=== PATIENT | female | born 1930 | race African-American/Black ===

== ENCOUNTER 2017-10-13 01:31 | Inpatient (IN) | payer MEDICARE, MEDICAID ==
[~2017-10-13] VITALS: Ht 170.2 cm; Wt 59.0 kg
[2017-10-13] VITALS (9 sets, daily range): BP systolic 107–202; BP diastolic 41–80
--- NOTE | 2017-10-13 01:51 | Emergency Room Report ---
History of Present Illness General Chief Complaint: Fever Source: Medical Record Present Illness HPI Is an 87-year-old female is a assisted patient. She has a history of dementia and other medical problem. She presents with chief complaint of fever and altered mental status. Decreased alertness. Decreased appetite. Onset for last day or 2. History is from assisted note. Unable to get anything from the patient because of her condition. Allergies: Coded Allergies: No Known Allergies (Unverified , 10/13/17) Patient History Past Medical History: see triage record, old chart reviewed Past Surgical History: other Pertinent Family History: none Social History: Denies: smoking Now: No Immunizations: other Reviewed Nursing Documentation: PMH: Agreed, PSxH: Agreed Nursing Documentation-PMH Past Medical History: No History, Except For Hx Hypertension: Yes Hx COPD: Yes Hx Diabetes: Yes - Type 2 Hx Dialysis: No - CKD- stage 3 Hx Neurological Problems: No - Muscle weakness Hx Cerebrovascular Accident: Yes - TIA, right side Hemiplegia, hemiparesis Review of Systems Constitutional: Reports: fever, weakness Eye: Denies: eye pain, blurred vision ENT: Denies: ear pain, nose congestion, throat swelling Respiratory: Denies: cough, shortness of breath Cardiovascular: Denies: chest pain, palpitations Gastrointestinal: Denies: abdominal pain, diarrhea, nausea, vomiting Musculoskeletal: Denies: back pain, joint pain Skin: Denies: rash Neurological: Denies: headache, numbness Endocrine: Denies: increased thirst, increased urine Hematologic/Lymphatic: Denies: easy bruising All Other Systems: negative except mentioned in HPI Physical Exam Vital Signs Date Time Temp Pulse Resp B/P (MAP) Pulse Ox O2 Delivery O2 Flow Rate FiO2 10/13/17 01:25 98.2 73 16 195/68 82 Room Air vitals with high blood pressure and hypoxia Sp02 EP Interpretation: abnormal General Appearance: mild distress, lethargic, Chronically Ill Head: normocephalic, atraumatic Eyes: bilateral eye PERRL, bilateral eye EOMI ENT: hearing grossly normal, dry mucus membranes Neck: full range of motion, supple, no meningismus Respiratory: chest non-tender, decreased breath sounds Cardiovascular #1: regular rate, rhythm, no murmur Gastrointestinal: normal bowel sounds, non tender, no mass, no organomegaly, no bruit, non-distended Musculoskeletal: back normal, normal range of motion Neurologic: alert, oriented x3, other - right facial droop Psychiatric: mood/affect normal Skin: warm/dry Medical Decision Making Diagnostic Impression: Primary Impression: Fever Qualified Codes: R50.9 - Fever, unspecified Additional Impression: Pneumonia Qualified Codes: J18.9 - Pneumonia, unspecified organism ER Course She present with a fever and a cough. Negative influenza. She may have early pneumonia. She fell better after IV fluid. More alert. Talking. Will admit for IV antibiotics and further workup. Her kidney functions appear to be at baseline. Lab Results Impression labs baseline EKG Diagnostic Results Rate: normal Rhythm: NSR ST Segments: no acute changes Rhythm Strip Diag. Results Rhythm Strip Time: 02:03 EP Interpretation: yes Rate: 69 Rhythm: NSR, no PVC's, no ectopy Chest X-Ray Diagnostic Results Chest X-Ray Diagnostic Results : Chest X-Ray Ordered: Yes # of Views/Limited/Complete: 1 View Indication: Shortness of Breath EP Interpretation: Yes Interpretation: no effusion, no pneumothorax, other - Bilateral interstitial infiltrates Impression: Other - pneumonia Electronically Signed by: Agustin Jackson MD Last Vital Signs Date Time Temp Pulse Resp B/P (MAP) Pulse Ox O2 Delivery O2 Flow Rate FiO2 10/13/17 01:25 98.2 73 16 195/68 82 Room Air Status: improved Disposition: ADMITTED INPATIENT Condition: Serious AGUSTIN JACKSON M.D. Oct 13, 2017 01:51
[2017-10-13 03:18] LABS: APPEARANCE,URINE CLEAR; BASOPHILS % (AUTO) 0.3 % (0.0-2.0); BILIRUBIN, URINE NEGATIVE (NEGATIVE); COLOR,URINE PALE YELLOW; GLUCOSE, URINE (UA) NEGATIVE (NEGATIVE); HEMATOCRIT 36.4 % (37.0-47.0); HEMOGLOBIN 11.9 G/DL (12.0-16.0); KETONES,URINE NEGATIVE (NEGATIVE); LEUKOCYTE ESTERASE ,URINE NEGATIVE (NEGATIVE); LYMPHOCYTES % (AUTO) 13.5 % (20.0-45.0); MEAN CORPUSCULAR VOLUME 79 FL (80-99); MONOCYTES % (AUTO) 12.4 % (1.0-10.0); NEUTROPHILS % (AUTO) 72.9 % (45.0-75.0); NITRITE,URINE NEGATIVE (NEGATIVE); PH,URINE 7 (4.5-8.0); PLATELET COUNT 280 K/UL (150-450); PROTEIN,URINE 4+ (NEGATIVE); RED BLOOD COUNT 4.62 M/UL (4.20-5.40); RED CELL DISTRIBUTION WIDTH 12.7 % (11.6-14.8); UROBILINOGEN,URINE NORMAL MG/DL (0.0-1.0); WHITE BLOOD COUNT 11.1 K/UL (4.8-10.8)
[2017-10-13] MEDS ORDERED: Acetaminophen 500mg (ES) tab ORAL ONE (03:30)
[2017-10-13 03:31] LABS: ANION GAP 7 mmol/L (5-15); BLOOD UREA NITROGEN 32 mg/dL (7-18); CALCIUM 8.9 MG/DL (8.5-10.1); CARBON DIOXIDE 29 MMOL/L (21-32); CHLORIDE 109 MMOL/L (98-107); CREATININE 1.9 MG/DL (0.55-1.30); POTASSIUM 3.3 MMOL/L (3.5-5.1); SODIUM 144 MMOL/L (136-145)
[2017-10-13 03:39] LABS: ALANINE AMINOTRANSFERASE 8 U/L (12-78); ALBUMIN 2.7 G/DL (3.4-5.0); ALBUMIN/GLOBULIN RATIO 0.5 (1.0-2.7); ALKALINE PHOSPHATASE 93 U/L (46-116); ASPARTATE AMINO TRANSFERASE 25 U/L (15-37); BILIRUBIN,TOTAL 0.6 MG/DL (0.2-1.0); CREATINE KINASE 162 U/L (26-308)
--- NOTE | 2017-10-13 10:11 | History & Physical ---
History and Physical History & Physicial Is an 87-year-old female is a assisted patient. She has a history of dementia and other medical problem. She presents with chief complaint of fever and altered mental status. Decreased alertness. Decreased appetite. Onset for last day or 2. History is from assisted note. Unable to get anything from the patient because of her condition. Past Medical History: No History, Except For Hx Hypertension: Yes Hx COPD: Yes Hx Diabetes: Yes - Type 2 Hx Dialysis: No - CKD- stage 3 Hx Neurological Problems: No - Muscle weakness Hx Cerebrovascular Accident: Yes - TIA, right side Hemiplegia, hemiparesis fever pneumonia htn anemia ckd oldcvs right facial weakness hypothyroid anemia high chol cad , s/p cabgs abd surgeries copd # [id number] MOY MARTINEZ Oct 13, 2017 10:11
[2017-10-13] MEDS ORDERED: HydrALAZINE 25mg tab ORAL PRN (10:15)
--- NOTE | 2017-10-13 10:30 | Diagnostic Imaging Report ---
Indication: Shortness of breath Technique: XRAY Chest 1v Comparison: Correlation made to CT angiogram of the chest 02/28/2012 Findings: Heart size within normal limits. Thoracic aorta is calcified and ectatic. There are bilateral interstitial opacities/edema. There are patchy opacities in the right lung. There is biapical pleural scarring. No pneumothorax thorax. Question trace right pleural effusion. Patient is status post median sternotomy. No acute osseous body seen. Impression: Interstitial opacification/edema and patchy right-sided airspace opacities. Although these findings may be related to congestive failure, pneumonia is not entirely excluded. Clinical correlation and follow-up exam recommended. Study was obtained via the emergency room but patient admitted to the hospital at the time of dictation of the final report.
[2017-10-13] MEDS: Docusate 100mg cap ORAL SCH ×2 (13:00→17:56)
--- NOTE | 2017-10-13 13:59 | Infectious Diseases Prog Note ---
Assessment/Plan Problems: (1) HCAP (healthcare-associated pneumonia) Assessment & Plan: will send sputum culture and start vancomycin with cefepime empiric coverage, pending cultures . stop levaquin (2) Sepsis Assessment & Plan: due to the above, will send blood culture and start vancomycin with cefepime empiric coverage (3) Diarrhea Assessment & Plan: rule out C diff , will send screening for C diff toxin , add flagyl empirically (4) Diabetes mellitus Assessment & Plan: recommend tight glycemic control to keep blood glucose between 100-140 (5) CKD (chronic kidney disease) Assessment & Plan: monitor renal function, adjust meds as per cr clearance , nephrology is following Subjective Allergies: Coded Allergies: No Known Allergies (Unverified , 10/13/17) Objective Vital Signs Last 24 Hour Vital Signs Date Time Temp Pulse Resp B/P (MAP) Pulse Ox O2 Delivery O2 Flow Rate FiO2 10/13/17 11:49 98.2 58 18 137/61 98 10/13/17 08:47 97.9 58 18 158/60 92 10/13/17 07:30 99.2 62 20 107/41 98 Simple Mask 4.0 10/13/17 05:48 99.2 62 20 107/41 98 Simple Mask 4.0 10/13/17 04:55 99.6 71 22 146/58 99 Simple Mask 4.0 10/13/17 04:37 99.8 10/13/17 04:02 203/98 10/13/17 03:55 99.8 80 16 182/80 95 Nasal Cannula 4.0 10/13/17 02:55 101.0 88 16 196/70 95 Nasal Cannula 4.0 10/13/17 01:45 98.8 78 16 202/68 96 Nasal Cannula 4.0 10/13/17 01:25 98.2 73 16 195/68 82 Room Air Height (Feet): 5 Height (Inches): 4.00 Weight (Pounds): 130 Microbiology Date/Time Source Procedure Growth Status 10/13/17 02:45 Nasal Nares Influenza Types A,B Antigen (HEATHER) - Final Complete Laboratory Tests Test 10/13/17 03:05 White Blood Count 11.1 K/UL (4.8-10.8) H Red Blood Count 4.62 M/UL (4.20-5.40) Hemoglobin 11.9 G/DL (12.0-16.0) L Hematocrit 36.4 % (37.0-47.0) L Mean Corpuscular Volume 79 FL (80-99) L Mean Corpuscular Hemoglobin 25.7 PG (27.0-31.0) L Mean Corpuscular Hemoglobin Concent 32.7 G/DL (32.0-36.0) Red Cell Distribution Width 12.7 % (11.6-14.8) Platelet Count 280 K/UL (150-450) Mean Platelet Volume 7.6 FL (6.5-10.1) Neutrophils (%) (Auto) 72.9 % (45.0-75.0) Lymphocytes (%) (Auto) 13.5 % (20.0-45.0) L Monocytes (%) (Auto) 12.4 % (1.0-10.0) H Eosinophils (%) (Auto) 1.0 % (0.0-3.0) Basophils (%) (Auto) 0.3 % (0.0-2.0) Prothrombin Time 10.4 SEC (9.30-11.50) Prothromb Time International Ratio 1.0 (0.9-1.1) Activated Partial Thromboplast Time 35 SEC (23-33) H Urine Color Pale yellow Urine Appearance Clear Urine pH 7 (4.5-8.0) Urine Specific [place] 1.010 (1.005-1.035) Urine Protein 4+ (NEGATIVE) H Urine Glucose (UA) Negative (NEGATIVE) Urine Ketones Negative (NEGATIVE) Urine Occult Blood 3+ (NEGATIVE) H Urine Nitrite Negative (NEGATIVE) Urine Bilirubin Negative (NEGATIVE) Urine Urobilinogen Normal MG/DL (0.0-1.0) Urine Leukocyte Esterase Negative (NEGATIVE) Urine RBC 5-10 /HPF (0 - 2) H Urine WBC 0 /HPF (0 - 2) Urine Squamous Epithelial Cells Occasional /LPF Urine Bacteria Occasional /HPF (NONE) Sodium Level 144 MMOL/L (136-145) Potassium Level 3.3 MMOL/L (3.5-5.1) L Chloride Level 109 MMOL/L (98-107) H Carbon Dioxide Level 29 MMOL/L (21-32) Anion Gap 7 mmol/L (5-15) Blood Urea Nitrogen 32 mg/dL (7-18) H Creatinine 1.9 MG/DL (0.55-1.30) H Estimat Glomerular Filtration Rate mL/min (>60) Glucose Level 126 MG/DL (74-106) H Lactic Acid Level 0.80 mmol/L (0.66-2.22) Calcium Level 8.9 MG/DL (8.5-10.1) Total Bilirubin 0.6 MG/DL (0.2-1.0) Aspartate Amino Transf (AST/SGOT) 25 U/L (15-37) Alanine Aminotransferase (ALT/SGPT) 8 U/L (12-78) L Alkaline Phosphatase 93 U/L (46-116) Total Creatine Kinase 162 U/L (26-308) Creatine Kinase MB 1.0 NG/ML (0.0-3.6) Creatine Kinase MB Relative Index 0.6 Troponin I 0.021 ng/mL (0.000-0.056) C-Reactive Protein, Quantitative 11.8 mg/dL (0.00-0.90) H Total Protein 8.0 G/DL (6.4-8.2) Albumin 2.7 G/DL (3.4-5.0) L Globulin 5.3 g/dL Albumin/Globulin Ratio 0.5 (1.0-2.7) L Current Medications Medications (Trade) Dose Ordered Sig/Jennie Route PRN Reason Start Time Stop Time Status Last Admin Dose Admin Amlodipine Besylate (Norvasc) 5 mg DAILY ORAL 10/14/17 09:00 11/13/17 08:59 Aspirin (ASA) 81 mg DAILY ORAL 10/14/17 09:00 11/13/17 08:59 Docusate Sodium (Colace) 100 mg THREE TIMES A DAY ORAL 10/13/17 13:00 11/12/17 12:59 Heparin Sodium (Porcine) (Heparin 5000 units/ml) 5,000 units EVERY 12 HOURS SUBQ 10/13/17 21:00 11/12/17 20:59 Hydralazine HCl (Apresoline) 25 mg Q6H PRN ORAL bp over 160 syst 10/13/17 10:15 11/12/17 10:14 Lansoprazole (Prevacid) 30 mg DAILY ORAL 10/14/17 09:00 11/13/17 08:59 Levofloxacin 50 ml @ 50 mls/hr Q24H IVPB 10/14/17 09:00 10/21/17 08:59 Levothyroxine Sodium (Synthroid) 75 mcg DAILY@0630 ORAL 10/14/17 06:30 11/13/17 06:29 Metoprolol Tartrate (Lopressor) 12.5 mg Q12HR ORAL 10/13/17 21:00 11/12/17 20:59 Potassium Chloride (K-Dur) 20 meq TWICE A DAY ORAL 10/13/17 10:15 10/14/17 10:14 Patric Wellington M.D. Oct 13, 2017 13:59
[2017-10-13] MEDS: Cefepime HCl 2 GM in D5W 55 ML IVPB SCH (15:53)
[2017-10-13] MEDS ORDERED: Vancomycin 1gm in D5W 275ml IVPB ONE (16:00)
--- NOTE | 2017-10-13 16:22 | Consultation ---
History of Present Illness General Date patient seen: Oct 13, 2017 Chief Complaint: Fever Referring physician: Dr. Moreau Reason for Consultation: Pneuomnia Present Illness HPI Patient is a 87 yo fem with pmhx heart disease, DM II, anemia, dementia and chronic obstructive pulmonary disease presents to [facility] with complaints of cough and fever. Initial chest radiograph reveals patchy infiltrates and a right small plueral effusion. The patinet is being admitted to the hospital for treatment, I was asked to manage and treat her respiratory ailments. Allergies: Coded Allergies: No Known Allergies (Unverified , 10/13/17) Medication History Scheduled Amlodipine Besylate (Norvasc), 5 MG ORAL BID Amoxicillin/Potassium Clav 875-125 Mg Tab* (Amox Tr-K Clv 875-125 Mg Tab*), 875 MG ORAL EVERY 12 HOURS Aspirin* (Aspirin*), 81 MG ORAL DAILY Docusate Sodium* (Colace*), 100 MG ORAL THREE TIMES A DAY Hydralazine Hcl* (Hydralazine Hcl*), 50 MG ORAL Q8HR Lansoprazole* (Lansoprazole*), 30 MG ORAL DAILY Levothyroxine Sodium* (Levothyroxine Sodium*), 100 MCG ORAL DAILY@0630 Metoprolol Tartrate (Metoprolol Tartrate), 25 MG ORAL Q12HR Patient History Healthcare decision maker Resuscitation status Full Code Advanced Directive on File Past Medical/Surgical History Past Medical/Surgical History: (1) Diarrhea (2) Sepsis (3) HCAP (healthcare-associated pneumonia) (4) Diabetes mellitus (5) CKD (chronic kidney disease) Review of Systems Constitutional: Reports: fever Respiratory: Reports: cough, shortness of breath Physical Exam General Appearance: no apparent distress, lethargic Lines, tubes and drains: peripheral HEENT: normocephalic, atraumatic, anicteric, PERRL Neck: non-tender, normal alignment, supple, normal inspection Respiratory/Chest: chest wall non-tender, decreased breath sounds, rhonchi - bilaterally Breasts: no masses Cardiovascular/Chest: normal peripheral pulses, normal rate, regular rhythm, no JVD Abdomen: normal bowel sounds, non tender, soft, no organomegaly, no mass Genitourinary/Rectal: normal genital exam, normal rectal exam Extremities: normal range of motion, non-tender, normal inspection, no calf tenderness Skin Exam: normal pigmentation, warm/dry 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, no motor/sensory deficits Last 24 Hour Vital Signs Date Time Temp Pulse Resp B/P (MAP) Pulse Ox O2 Delivery O2 Flow Rate FiO2 10/13/17 16:18 98.0 60 18 138/65 98 10/13/17 11:49 98.2 58 18 137/61 98 10/13/17 08:47 97.9 58 18 158/60 92 10/13/17 07:30 99.2 62 20 107/41 98 Simple Mask 4.0 10/13/17 05:48 99.2 62 20 107/41 98 Simple Mask 4.0 10/13/17 04:55 99.6 71 22 146/58 99 Simple Mask 4.0 10/13/17 04:37 99.8 10/13/17 04:02 203/98 10/13/17 03:55 99.8 80 16 182/80 95 Nasal Cannula 4.0 10/13/17 02:55 101.0 88 16 196/70 95 Nasal Cannula 4.0 10/13/17 01:45 98.8 78 16 202/68 96 Nasal Cannula 4.0 10/13/17 01:25 98.2 73 16 195/68 82 Room Air Intake and Output 10/12/17 10/13/17 19:00 07:00 Intake Total 1900 ml Output Total 200 ml Balance 1700 ml IV Total 1900 ml Output Urine Total 200 ml Laboratory Tests Test 10/13/17 03:05 White Blood Count 11.1 K/UL (4.8-10.8) H Red Blood Count 4.62 M/UL (4.20-5.40) Hemoglobin 11.9 G/DL (12.0-16.0) L Hematocrit 36.4 % (37.0-47.0) L Mean Corpuscular Volume 79 FL (80-99) L Mean Corpuscular Hemoglobin 25.7 PG (27.0-31.0) L Mean Corpuscular Hemoglobin Concent 32.7 G/DL (32.0-36.0) Red Cell Distribution Width 12.7 % (11.6-14.8) Platelet Count 280 K/UL (150-450) Mean Platelet Volume 7.6 FL (6.5-10.1) Neutrophils (%) (Auto) 72.9 % (45.0-75.0) Lymphocytes (%) (Auto) 13.5 % (20.0-45.0) L Monocytes (%) (Auto) 12.4 % (1.0-10.0) H Eosinophils (%) (Auto) 1.0 % (0.0-3.0) Basophils (%) (Auto) 0.3 % (0.0-2.0) Prothrombin Time 10.4 SEC (9.30-11.50) Prothromb Time International Ratio 1.0 (0.9-1.1) Activated Partial Thromboplast Time 35 SEC (23-33) H Urine Color Pale yellow Urine Appearance Clear Urine pH 7 (4.5-8.0) Urine Specific [place] 1.010 (1.005-1.035) Urine Protein 4+ (NEGATIVE) H Urine Glucose (UA) Negative (NEGATIVE) Urine Ketones Negative (NEGATIVE) Urine Occult Blood 3+ (NEGATIVE) H Urine Nitrite Negative (NEGATIVE) Urine Bilirubin Negative (NEGATIVE) Urine Urobilinogen Normal MG/DL (0.0-1.0) Urine Leukocyte Esterase Negative (NEGATIVE) Urine RBC 5-10 /HPF (0 - 2) H Urine WBC 0 /HPF (0 - 2) Urine Squamous Epithelial Cells Occasional /LPF Urine Bacteria Occasional /HPF (NONE) Sodium Level 144 MMOL/L (136-145) Potassium Level 3.3 MMOL/L (3.5-5.1) L Chloride Level 109 MMOL/L (98-107) H Carbon Dioxide Level 29 MMOL/L (21-32) Anion Gap 7 mmol/L (5-15) Blood Urea Nitrogen 32 mg/dL (7-18) H Creatinine 1.9 MG/DL (0.55-1.30) H Estimat Glomerular Filtration Rate mL/min (>60) Glucose Level 126 MG/DL (74-106) H Lactic Acid Level 0.80 mmol/L (0.66-2.22) Calcium Level 8.9 MG/DL (8.5-10.1) Total Bilirubin 0.6 MG/DL (0.2-1.0) Aspartate Amino Transf (AST/SGOT) 25 U/L (15-37) Alanine Aminotransferase (ALT/SGPT) 8 U/L (12-78) L Alkaline Phosphatase 93 U/L (46-116) Total Creatine Kinase 162 U/L (26-308) Creatine Kinase MB 1.0 NG/ML (0.0-3.6) Creatine Kinase MB Relative Index 0.6 Troponin I 0.021 ng/mL (0.000-0.056) C-Reactive Protein, Quantitative 11.8 mg/dL (0.00-0.90) H Total Protein 8.0 G/DL (6.4-8.2) Albumin 2.7 G/DL (3.4-5.0) L Globulin 5.3 g/dL Albumin/Globulin Ratio 0.5 (1.0-2.7) L Microbiology Date/Time Source Procedure Growth Status 10/13/17 02:45 Nasal Nares Influenza Types A,B Antigen (HEATHER) - Final Complete Height (Feet): 5 Height (Inches): 7.00 Weight (Pounds): 130 Medications Current Medications Medications (Trade) Dose Ordered Sig/Jennie Route PRN Reason Start Time Stop Time Status Last Admin Dose Admin Amlodipine Besylate (Norvasc) 5 mg DAILY ORAL 10/14/17 09:00 11/13/17 08:59 Aspirin (ASA) 81 mg DAILY ORAL 10/14/17 09:00 11/13/17 08:59 Cefepime HCl 2 gm/ Dextrose 55 ml @ 110 mls/hr Q24H IVPB 10/13/17 15:00 10/20/17 14:59 10/13/17 15:53 Docusate Sodium (Colace) 100 mg THREE TIMES A DAY ORAL 10/13/17 13:00 11/12/17 12:59 Heparin Sodium (Porcine) (Heparin 5000 units/ml) 5,000 units EVERY 12 HOURS SUBQ 10/13/17 21:00 11/12/17 20:59 Hydralazine HCl (Apresoline) 25 mg Q6H PRN ORAL bp over 160 syst 10/13/17 10:15 11/12/17 10:14 Lansoprazole (Prevacid) 30 mg DAILY ORAL 10/14/17 09:00 11/13/17 08:59 Levothyroxine Sodium (Synthroid) 75 mcg DAILY@0630 ORAL 10/14/17 06:30 11/13/17 06:29 Metoprolol Tartrate (Lopressor) 12.5 mg Q12HR ORAL 10/13/17 21:00 11/12/17 20:59 Potassium Chloride (K-Dur) 20 meq TWICE A DAY ORAL 10/13/17 10:15 10/14/17 10:14 10/13/17 10:15 Vancomycin HCl (Vanco rx to dose) 1 ea DAILY PRN MISC Per rx protocol 10/13/17 14:00 11/12/17 13:59 Vancomycin HCl 1 gm/Dextrose 275 ml @ 183.708 mls/hr ONCE ONCE IVPB 10/13/17 16:00 10/13/17 17:29 Assessment/Plan Problem List: (1) HCAP (healthcare-associated pneumonia) ICD Codes: J18.9 - Pneumonia, unspecified organism SNOMED: 540327289 (2) Fever ICD Codes: R50.9 - Fever, unspecified SNOMED: 993155228 Qualifiers: Qualified Codes: R50.9 - Fever, unspecified (3) Sepsis ICD Codes: A41.9 - Sepsis, unspecified organism SNOMED: 89150488 Qualifiers: Qualified Codes: A41.9 - Sepsis, unspecified organism (4) Diabetes mellitus ICD Codes: E11.9 - Type 2 diabetes mellitus without complications SNOMED: 62665206 Qualifiers: (5) CKD (chronic kidney disease) ICD Codes: N18.9 - Chronic kidney disease, unspecified SNOMED: 946626747 Qualifiers: Qualified Codes: N18.9 - Chronic kidney disease, unspecified Status: stable, progressing Assessment/Plan Respiratory treatment Check sputum IV abx Check cultures DVT prophylaxis ROBBY COLE Oct 13, 2017 16:22
--- NOTE | 2017-10-13 19:00 | History and Physical Report ---
DATE OF ADMISSION: 10/13/2017 HISTORY OF PRESENT ILLNESS: The patient is an 87-year-old female, who is a longterm resident with history of multiple medical problems and dementia. The patient had some change in mental status and also became somewhat tachypneic with fever, was transferred to emergency room, and subsequently is being admitted with [id number] pneumonia. PAST MEDICAL HISTORY: Significant for previous CVA, hypothyroidism, hyperlipemia, CKD, coronary artery disease, previous coronary bypass graft surgery, dementia, hypertension, diabetes mellitus, and COPD. ALLERGIES: The patient does not have any allergies. REVIEW OF SYSTEMS: When seen, the patient had not been complaining of any pain. PHYSICAL EXAMINATION: GENERAL: Not in any distress. VITAL SIGNS: She was febrile with temperature of 101, respiratory rate of 22, and pulse rate of 73. HEENT: Face is pale. CHEST: Scar on the chest. LUNGS: Decreased breath sound over the bases. Occasional rales. HEART: Slightly tachycardic. ABDOMEN: Multiple scars of previous surgery, however, soft. EXTREMITIES: Lower extremities, no edema. NEUROLOGIC: Right face paralysis. LABORATORY DATA: Potassium 3.3, glucose 126, albumin 2.7. C-reactive protein 11.8. White blood cells 11.9, hemoglobin 11.9. Urine 10 RBCs, zero white blood cells, 3+ blood, 4+ protein. Chest x-ray, possible pneumonia, the interstitial edema, patchy right-side airspace opacity. IMPRESSION: This 87-year-old female is admitted with fever and pneumonia. Other conditions are hypertension, anemia, chronic kidney disease with creatinine of 1.9, old cerebrovascular accident, hypothyroid, anemia, high cholesterol, coronary artery disease, abdominal surgeries, and chronic obstructive pulmonary disease. PLAN: Antibiotic, keep the blood pressure in check, monitor laboratories, and pulmonary toilet and according to how the patient's condition evolves, we will make proper changes in our future management. Suresh Coronado M.D. DR: Aiden JOB#: [id number] CC:
[2017-10-13] MEDS: Metoprolol Tartrate 12.5mg TAB ORAL SCH (21:35)
[2017-10-13] MEDS: Heparin 5000 units/ml inj SUBQ SCH (21:37)
[2017-10-14] VITALS (9 sets, daily range): BP systolic 155–199; BP diastolic 72–107
[2017-10-14 07:40] LABS: BASOPHILS % (AUTO) 0.9 % (0.0-2.0); EOSINOPHILS % (AUTO) 3.5 % (0.0-3.0); HEMATOCRIT 32.4 % (37.0-47.0); HEMOGLOBIN 10.6 G/DL (12.0-16.0); LYMPHOCYTES % (AUTO) 17.6 % (20.0-45.0); MEAN CORPUSCULAR VOLUME 79 FL (80-99); MONOCYTES % (AUTO) 10.7 % (1.0-10.0); NEUTROPHILS % (AUTO) 67.3 % (45.0-75.0); PLATELET COUNT 222 K/UL (150-450); RED BLOOD COUNT 4.09 M/UL (4.20-5.40); RED CELL DISTRIBUTION WIDTH 12.8 % (11.6-14.8); WHITE BLOOD COUNT 9.1 K/UL (4.8-10.8)
[2017-10-14 08:04] LABS: ALANINE AMINOTRANSFERASE 16 U/L (12-78); ALBUMIN 2.2 G/DL (3.4-5.0); ALBUMIN/GLOBULIN RATIO 0.4 (1.0-2.7); ALKALINE PHOSPHATASE 77 U/L (46-116); ANION GAP 8 mmol/L (5-15); ASPARTATE AMINO TRANSFERASE 23 U/L (15-37); BILIRUBIN,TOTAL 0.2 MG/DL (0.2-1.0); BLOOD UREA NITROGEN 29 mg/dL (7-18); CALCIUM 8.7 MG/DL (8.5-10.1); CARBON DIOXIDE 26 MMOL/L (21-32); CHLORIDE 114 MMOL/L (98-107); CHOLESTEROL 142 MG/DL (< 200); CREATININE 1.6 MG/DL (0.55-1.30); FERRITIN 243 NG/ML (8-388); GAMMA GLUTAMYL TRANSPEPTIDASE 17 U/L (5-85); HDL CHOLESTEROL 45 MG/DL (40-60); PHOSPHORUS 2.8 MG/DL (2.5-4.9); POTASSIUM 3.8 MMOL/L (3.5-5.1); SODIUM 148 MMOL/L (136-145); TRIGLYCERIDES 128 MG/DL (30-150)
[2017-10-14 08:23] LABS: % IRON SATURATION 10 % (15-50); IRON 19 ug/dL (50-175); TOTAL IRON BINDING CAPACITY 190 ug/dL (250-450)
[2017-10-14] MEDS: Aspirin Baby 81mg ORAL SCH (08:23)
[2017-10-14] MEDS: Metoprolol Tartrate 12.5mg TAB ORAL SCH ×2 (08:23→20:37)
[2017-10-14] MEDS: Docusate 100mg cap ORAL SCH ×3 (08:24→17:21)
[2017-10-14] MEDS: Heparin 5000 units/ml inj SUBQ SCH ×2 (08:29→20:38)
--- NOTE | 2017-10-14 12:00 | Consultation ---
DATE OF CONSULTATION: 10/13/2017 INFECTIOUS DISEASE CONSULTATION REQUESTING PHYSICIAN: Suresh Coronado M.D. REASON FOR CONSULTATION: Healthcare-acquired pneumonia and sepsis, recommendation for antibiotics treatment. HISTORY OF PRESENT ILLNESS: The patient is an 87-year-old female, who is a half-way resident with past medical history of dementia, hypertension, COPD, diabetes, chronic kidney disease and transient ischemic attack with hemiparesis, was sent to [facility] emergency room for fever and cough. The patient was feeling dizzy and sick. She was coughing yellowish phlegm. She had nausea and vomited x1 in the half-way. So she was sent to the hospital for evaluation. The patient had low appetite and became dehydrated. In the emergency room, chest x-ray showed evidence of significant interstitial infiltration. She was hypoxemic, saturating 82% on room air and she was also running fever. So, she was started on levofloxacin empiric coverage by the admitting physician and I was consulted for antibiotic treatment and further management. As of note, the patient is poor historian, could not provide good history. History was mainly obtained from the medical record and nursing staff. PAST MEDICAL HISTORY: Significant for hypertension, COPD, diabetes, chronic kidney disease, stage III, muscle weakness, transient ischemic attack with right-sided hemiplegia and hemiparesis. PAST SURGICAL HISTORY: Not on record. MEDICATIONS: The patient was started on levofloxacin. For the rest of her medications, please refer to MAR. ALLERGIES: No known drug allergy. SOCIAL HISTORY: The patient is a resident of half-way. No recent drugs, tobacco, or alcohol. FAMILY HISTORY: Negative and noncontributory. REVIEW OF SYSTEMS: Unable to obtain. The patient is a poor historian. PHYSICAL EXAMINATION: GENERAL: An elderly female, lying in bed, awake, alert, pleasant with facial droop, up in bed, not in distress, coughing. VITAL SIGNS: Temperature 99.6 degrees, pulse 71, respirations 22, blood pressure 146/58 and saturation 99% on Venti mask. HEENT: She had right facial droop. Pupils are reactive to light. Moist oral mucosa. No exudate or thrush. NECK: Supple. No lymphadenopathy. CARDIOVASCULAR: Regular rate and rhythm. No murmur. No gallop. LUNGS: She had bilateral crackles and wheezing at the bases. Normal breathing effort. ABDOMEN: Soft, nontender, and nondistended. Positive bowel sounds. No hepatosplenomegaly or ascites. EXTREMITY: No edema or cyanosis. Muscle atrophy and hemiparesis. LABORATORY AND DIAGNOSTIC DATA: White count of 11.1, hemoglobin of 11.9 and platelet count of 280. BUN of 32 and creatinine of 1.9. Urinalysis showed +3 occult blood, 5 to 10 red blood cells, but zero WBC and occasional bacteria. Imaging, chest x-ray showed interstitial opacification edema with patchy right-sided airspace opacities, may be related to pneumonia, which is not completely excluded. ASSESSMENT AND RECOMMENDATION: 1. Healthcare-acquired pneumonia. We will send sputum culture. We will start the patient empirically on vancomycin and cefepime for now. Pending culture results, we will stop levofloxacin seen. 2. Sepsis due to the above. We will send blood culture and start vancomycin with cefepime empiric coverage. 3. Diarrhea, rule out Clostridium difficile. We will send screening for C. difficile toxin. Add Flagyl empiric coverage for now. 4. Diabetes. Recommend tight glycemic control to keep blood glucose between 100 to 140. 5. Chronic kidney disease. Monitor renal function test. Adjust medication as per creatinine clearance. Nephrology is following. Thank you for letting me to participate in the care of this patient. Please feel free to call with any question. Patric Wellington M.D. DR: SHEBA JOB#: [id number] CC:
--- NOTE | 2017-10-14 12:05 | General Progress Note ---
Assessment/Plan Status: stable Status Narrative Pneumonia Diarrhea HTN CKD Anemia Low Iron Low Alb Low Thyroid High Chol CAD COPD Multi Abd Surgeries DM Assessment/Plan antibiotics per ID breathing treatment adjust BP meds 2D echo kidney LUIS ENRIQUE IV Iron Subjective ROS Limited/Unobtainable: No Constitutional: Reports: malaise, weakness Allergies: Coded Allergies: No Known Allergies (Unverified , 10/13/17) Objective Last 24 Hour Vital Signs Date Time Temp Pulse Resp B/P (MAP) Pulse Ox O2 Delivery O2 Flow Rate FiO2 10/14/17 10:41 66 187/84 10/14/17 09:21 70 22 167/97 10/14/17 09:21 167/97 10/14/17 08:24 68 199/84 10/14/17 08:23 68 199/84 10/14/17 08:00 97.9 65 22 199/84 94 Nasal Cannula 4.0 10/14/17 04:00 97.9 65 19 161/74 94 Nasal Cannula 4.0 10/13/17 21:35 88 161/59 10/13/17 20:00 97.9 68 19 165/77 98 Nasal Cannula 4.0 10/13/17 16:18 98.0 60 18 138/65 98 Intake and Output 10/13/17 10/14/17 19:00 07:00 Intake Total 480 ml 180 ml Output Total 500 ml 400 ml Balance -20 ml -220 ml Intake Oral 480 ml 180 ml Output Urine Total 500 ml 400 ml # Bowel Movements 2 Laboratory Tests 10/14/17 05:35: White Blood Count 9.1, Red Blood Count 4.09L, Hemoglobin 10.6L, Hematocrit 32.4L , Mean Corpuscular Volume 79L, Mean Corpuscular Hemoglobin 25.8L, Mean Corpuscular Hemoglobin Concent 32.5, Red Cell Distribution Width 12.8, Platelet Count 222, Mean Platelet Volume 7.7, Neutrophils (%) (Auto) 67.3, Lymphocytes (% ) (Auto) 17.6L, Monocytes (%) (Auto) 10.7H, Eosinophils (%) (Auto) 3.5H, Basophils (%) (Auto) 0.9, Sodium Level 148H, Potassium Level 3.8, Chloride Level 114H, Carbon Dioxide Level 26, Anion Gap 8, Blood Urea Nitrogen 29H, Creatinine 1.6H, Estimat Glomerular Filtration Rate , Glucose Level 99, Hemoglobin A1c 6.8H, Uric Acid 5.5, Calcium Level 8.7, Phosphorus Level 2.8, Magnesium Level 1.7L, Iron Level 19L, Total Iron Binding Capacity 190L, Percent Iron Saturation 10L, Unsaturated Iron Binding 171, Ferritin 243, Total Bilirubin 0.2, Gamma Glutamyl Transpeptidase 17, Aspartate Amino Transf (AST/ SGOT) 23, Alanine Aminotransferase (ALT/SGPT) 16, Alkaline Phosphatase 77, Pro-B -Type Natriuretic Peptide 1852H, Total Protein 7.2, Albumin 2.2L, Globulin 5.0, Albumin/Globulin Ratio 0.4L, Triglycerides Level 128, Cholesterol Level 142, LDL Cholesterol 64, HDL Cholesterol 45, Cholesterol/HDL Ratio 3.2L, Vitamin B12 Level 470, Folate 17.2, Thyroid Stimulating Hormone (TSH) 9.858H Height (Feet): 5 Height (Inches): 7.00 Weight (Pounds): 130 General Appearance: lethargic Cardiovascular: normal rate Respiratory/Chest: decreased breath sounds Abdomen: soft, other - scars of previous surgery Objective no other change MOY MARTINEZ Oct 14, 2017 12:05
[2017-10-14] MEDS: HydrALAZINE 25mg tab ORAL SCH ×2 (12:56→19:00)
[2017-10-14] MEDS ORDERED: Iron Sucrose 200 MG in NS 110 ML IV ONE ×2 (13:00→17:00)
[2017-10-14] MEDS: Albuterol ud Inhalation HHN SCH ×2 (13:59→19:00)
--- NOTE | 2017-10-14 14:04 | Pulmonology Progress Note ---
Assessment/Plan Problems: (1) HCAP (healthcare-associated pneumonia) (2) Fever (3) Sepsis (4) Diabetes mellitus (5) CKD (chronic kidney disease) Assessment/Plan afebrile continue abx check the cultures check electrolytes chest PT cxr in few days Subjective Interval Events: no new complains Allergies: Coded Allergies: No Known Allergies (Unverified , 10/13/17) Objective Last 24 Hour Vital Signs Date Time Temp Pulse Resp B/P (MAP) Pulse Ox O2 Delivery O2 Flow Rate FiO2 10/14/17 12:56 187/84 10/14/17 12:00 96.8 63 20 185/72 96 Nasal Cannula 4.0 10/14/17 10:41 66 187/84 10/14/17 09:21 70 22 167/97 10/14/17 09:21 167/97 10/14/17 08:24 68 199/84 10/14/17 08:23 68 199/84 10/14/17 08:00 97.9 65 22 199/84 94 Nasal Cannula 4.0 10/14/17 04:00 97.9 65 19 161/74 94 Nasal Cannula 4.0 10/13/17 21:35 88 161/59 10/13/17 20:00 97.9 68 19 165/77 98 Nasal Cannula 4.0 10/13/17 16:18 98.0 60 18 138/65 98 Intake and Output 10/13/17 10/14/17 19:00 07:00 Intake Total 480 ml 180 ml Output Total 500 ml 400 ml Balance -20 ml -220 ml Intake Oral 480 ml 180 ml Output Urine Total 500 ml 400 ml # Bowel Movements 2 Objective General Appearance: WD/WN HEENT: normocephalic Respiratory/Chest: chest wall non-tender Breasts: no masses Cardiovascular: normal peripheral pulses Abdomen: normal bowel sounds Genitourinary: normal external genitalia Skin: no rash 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, no motor/sensory deficits Microbiology Date/Time Source Procedure Growth Status 10/13/17 02:45 Blood Blood Culture - Preliminary NO GROWTH AFTER 24 HOURS Resulted 10/13/17 02:30 Blood Blood Culture - Preliminary NO GROWTH AFTER 24 HOURS Resulted 10/13/17 02:45 Nasal Nares Influenza Types A,B Antigen (HEATHER) - Final Complete Laboratory Tests 10/14/17 05:35: White Blood Count 9.1, Red Blood Count 4.09L, Hemoglobin 10.6L, Hematocrit 32.4L , Mean Corpuscular Volume 79L, Mean Corpuscular Hemoglobin 25.8L, Mean Corpuscular Hemoglobin Concent 32.5, Red Cell Distribution Width 12.8, Platelet Count 222, Mean Platelet Volume 7.7, Neutrophils (%) (Auto) 67.3, Lymphocytes (% ) (Auto) 17.6L, Monocytes (%) (Auto) 10.7H, Eosinophils (%) (Auto) 3.5H, Basophils (%) (Auto) 0.9, Sodium Level 148H, Potassium Level 3.8, Chloride Level 114H, Carbon Dioxide Level 26, Anion Gap 8, Blood Urea Nitrogen 29H, Creatinine 1.6H, Estimat Glomerular Filtration Rate , Glucose Level 99, Hemoglobin A1c 6.8H, Uric Acid 5.5, Calcium Level 8.7, Phosphorus Level 2.8, Magnesium Level 1.7L, Iron Level 19L, Total Iron Binding Capacity 190L, Percent Iron Saturation 10L, Unsaturated Iron Binding 171, Ferritin 243, Total Bilirubin 0.2, Gamma Glutamyl Transpeptidase 17, Aspartate Amino Transf (AST/ SGOT) 23, Alanine Aminotransferase (ALT/SGPT) 16, Alkaline Phosphatase 77, Pro-B -Type Natriuretic Peptide 1852H, Total Protein 7.2, Albumin 2.2L, Globulin 5.0, Albumin/Globulin Ratio 0.4L, Triglycerides Level 128, Cholesterol Level 142, LDL Cholesterol 64, HDL Cholesterol 45, Cholesterol/HDL Ratio 3.2L, Vitamin B12 Level 470, Folate 17.2, Thyroid Stimulating Hormone (TSH) 9.858H Current Medications Medications (Trade) Dose Ordered Sig/Jennie Route PRN Reason Start Time Stop Time Status Last Admin Dose Admin Albuterol Sulfate (Proventil) 2.5 mg TIDRT HHN 10/14/17 13:00 10/19/17 12:59 10/14/17 13:59 Amlodipine Besylate (Norvasc) 5 mg BID ORAL 10/14/17 18:00 11/13/17 08:59 Aspirin (ASA) 81 mg DAILY ORAL 10/14/17 09:00 11/13/17 08:59 10/14/17 08:23 Cefepime HCl 2 gm/ Dextrose 55 ml @ 110 mls/hr Q24H IVPB 10/13/17 15:00 10/20/17 14:59 10/13/17 15:53 Docusate Sodium (Colace) 100 mg THREE TIMES A DAY ORAL 10/13/17 13:00 11/12/17 12:59 10/14/17 12:57 Heparin Sodium (Porcine) (Heparin 5000 units/ml) 5,000 units EVERY 12 HOURS SUBQ 10/13/17 21:00 11/12/17 20:59 10/14/17 08:29 Hydralazine HCl (Apresoline) 25 mg Q4H PRN ORAL bp over 160 syst 10/14/17 12:15 11/12/17 10:14 Hydralazine HCl (Apresoline) 25 mg Q8HR ORAL 10/14/17 14:00 11/13/17 13:59 10/14/17 12:56 Lansoprazole (Prevacid) 30 mg DAILY ORAL 10/14/17 09:00 11/13/17 08:59 10/14/17 08:35 Levothyroxine Sodium (Synthroid) 100 mcg DAILY@0630 ORAL 10/15/17 06:30 11/14/17 06:29 Metoprolol Tartrate (Lopressor) 12.5 mg Q12HR ORAL 10/13/17 21:00 11/12/17 20:59 10/14/17 08:23 Vancomycin HCl (Vanco rx to dose) 1 ea DAILY PRN MISC Per rx protocol 10/13/17 14:00 11/12/17 13:59 ROBBY COLE Oct 14, 2017 14:04
[2017-10-14] MEDS ORDERED: Tubing IV Secondary IV ONE (14:36)
[2017-10-14] MEDS ORDERED: NS 500ML ONE (14:36)
[2017-10-14] MEDS: Cefepime HCl 2 GM in D5W 55 ML IVPB SCH (17:14)
--- NOTE | 2017-10-14 19:40 | Infectious Diseases Prog Note ---
Assessment/Plan Problems: (1) HCAP (healthcare-associated pneumonia) Assessment & Plan: await sputum culture and continue vancomycin with cefepime empiric coverage, pending cultures . (2) Sepsis Assessment & Plan: due to the above, await blood culture , continue vancomycin with cefepime empiric coverage (3) Diarrhea Assessment & Plan: rule out C diff , await screening for C diff toxin , continue flagyl empirically (4) Diabetes mellitus Assessment & Plan: recommend tight glycemic control to keep blood glucose between 100-140 (5) CKD (chronic kidney disease) Assessment & Plan: monitor renal function, adjust meds as per cr clearance , nephrology is following Subjective Constitutional: Reports: no symptoms HEENT: Reports: no symptoms Respiratory: Reports: productive cough Breasts: Reports: no symptoms Cardiovascular: Reports: no symptoms Gastrointestinal/Abdominal: Reports: diarrhea Genitourinary: Reports: no symptoms Neurologic: Reports: no symptoms Psychiatric: Reports: no symptoms Skin: Reports: no symptoms Endocrine: Reports: no symptoms Hematologic: Reports: no symptoms Musculoskeletal: Reports: no symptoms Allergies: Coded Allergies: No Known Allergies (Unverified , 10/13/17) Objective Vital Signs Last 24 Hour Vital Signs Date Time Temp Pulse Resp B/P (MAP) Pulse Ox O2 Delivery O2 Flow Rate FiO2 10/14/17 19:00 84 157/103 10/14/17 19:00 157/103 10/14/17 17:21 79 183/84 10/14/17 16:02 101.7 79 18 183/84 93 Nasal Cannula 2.0 10/14/17 14:12 86 22 99 Nasal Cannula 4.0 10/14/17 13:59 78 22 96 Nasal Cannula 4.0 10/14/17 13:57 78 22 Nasal Cannula 4.0 10/14/17 13:55 Nasal Cannula 4.0 10/14/17 13:54 96 Nasal Cannula 4.0 10/14/17 12:56 187/84 10/14/17 12:00 96.8 63 20 185/72 96 Nasal Cannula 4.0 10/14/17 10:41 66 187/84 10/14/17 09:21 70 22 167/97 10/14/17 09:21 167/97 10/14/17 08:24 68 199/84 10/14/17 08:23 68 199/84 10/14/17 08:00 97.9 65 22 199/84 94 Nasal Cannula 4.0 10/14/17 04:00 97.9 65 19 161/74 94 Nasal Cannula 4.0 10/13/17 21:35 88 161/59 10/13/17 20:00 97.9 68 19 165/77 98 Nasal Cannula 4.0 Height (Feet): 5 Height (Inches): 7.00 Weight (Pounds): 130 General Appearance: WD/WN, no acute distress HEENT: normocephalic, atraumatic, anicteric, mucous membranes moist, PERRL Respiratory/Chest: chest wall non-tender, normal breath sounds, no respiratory distress, no accessory muscle use, decreased breath sounds, crackles/rales Cardiovascular: normal peripheral pulses, normal rate, regular rhythm, no gallop/murmur, no JVD Abdomen: normal bowel sounds, soft, non tender, no organomegaly, non distended , no mass, no scars Extremities: no cyanosis, no clubbing Skin: no rash, no lesions Neurologic/Psychiatric: alert, oriented x 3, responsive Microbiology Date/Time Source Procedure Growth Status 10/13/17 02:45 Blood Blood Culture - Preliminary NO GROWTH AFTER 24 HOURS Resulted 10/13/17 02:30 Blood Blood Culture - Preliminary NO GROWTH AFTER 24 HOURS Resulted 10/13/17 02:45 Nasal Nares Influenza Types A,B Antigen (HEATHER) - Final Complete Laboratory Tests Test 10/14/17 05:35 10/14/17 18:10 White Blood Count 9.1 K/UL (4.8-10.8) Red Blood Count 4.09 M/UL (4.20-5.40) L Hemoglobin 10.6 G/DL (12.0-16.0) L Hematocrit 32.4 % (37.0-47.0) L Mean Corpuscular Volume 79 FL (80-99) L Mean Corpuscular Hemoglobin 25.8 PG (27.0-31.0) L Mean Corpuscular Hemoglobin Concent 32.5 G/DL (32.0-36.0) Red Cell Distribution Width 12.8 % (11.6-14.8) Platelet Count 222 K/UL (150-450) Mean Platelet Volume 7.7 FL (6.5-10.1) Neutrophils (%) (Auto) 67.3 % (45.0-75.0) Lymphocytes (%) (Auto) 17.6 % (20.0-45.0) L Monocytes (%) (Auto) 10.7 % (1.0-10.0) H Eosinophils (%) (Auto) 3.5 % (0.0-3.0) H Basophils (%) (Auto) 0.9 % (0.0-2.0) Sodium Level 148 MMOL/L (136-145) H Potassium Level 3.8 MMOL/L (3.5-5.1) Chloride Level 114 MMOL/L (98-107) H Carbon Dioxide Level 26 MMOL/L (21-32) Anion Gap 8 mmol/L (5-15) Blood Urea Nitrogen 29 mg/dL (7-18) H Creatinine 1.6 MG/DL (0.55-1.30) H Estimat Glomerular Filtration Rate mL/min (>60) Glucose Level 99 MG/DL (74-106) Hemoglobin A1c 6.8 % (4.3-6.0) H Uric Acid 5.5 MG/DL (2.6-7.2) Calcium Level 8.7 MG/DL (8.5-10.1) Phosphorus Level 2.8 MG/DL (2.5-4.9) Magnesium Level 1.7 MG/DL (1.8-2.4) L Iron Level 19 ug/dL (50-175) L Total Iron Binding Capacity 190 ug/dL (250-450) L Percent Iron Saturation 10 % (15-50) L Unsaturated Iron Binding 171 ug/dL (112-346) Ferritin 243 NG/ML (8-388) Total Bilirubin 0.2 MG/DL (0.2-1.0) Gamma Glutamyl Transpeptidase 17 U/L (5-85) Aspartate Amino Transf (AST/SGOT) 23 U/L (15-37) Alanine Aminotransferase (ALT/SGPT) 16 U/L (12-78) Alkaline Phosphatase 77 U/L (46-116) Pro-B-Type Natriuretic Peptide 1852 pg/mL (0-125) H Total Protein 7.2 G/DL (6.4-8.2) Albumin 2.2 G/DL (3.4-5.0) L Globulin 5.0 g/dL Albumin/Globulin Ratio 0.4 (1.0-2.7) L Triglycerides Level 128 MG/DL (30-150) Cholesterol Level 142 MG/DL (< 200) LDL Cholesterol 64 mg/dL (<100) HDL Cholesterol 45 MG/DL (40-60) Cholesterol/HDL Ratio 3.2 (3.3-4.4) L Vitamin B12 Level 470 PG/ML (193-986) Folate 17.2 NG/ML (8.6-58.9) Thyroid Stimulating Hormone (TSH) 9.858 uiU/mL (0.358-3.740) Random Vancomycin Level 8.3 ug/mL Current Medications Medications (Trade) Dose Ordered Sig/Jennie Route PRN Reason Start Time Stop Time Status Last Admin Dose Admin Albuterol Sulfate (Proventil) 2.5 mg TIDRT HHN 10/14/17 13:00 10/19/17 12:59 10/14/17 13:59 Amlodipine Besylate (Norvasc) 5 mg BID ORAL 10/14/17 18:00 11/13/17 08:59 10/14/17 17:21 Aspirin (ASA) 81 mg DAILY ORAL 10/14/17 09:00 11/13/17 08:59 10/14/17 08:23 Cefepime HCl 2 gm/ Dextrose 55 ml @ 110 mls/hr Q24H IVPB 10/13/17 15:00 10/20/17 14:59 10/14/17 17:14 Docusate Sodium (Colace) 100 mg THREE TIMES A DAY ORAL 10/13/17 13:00 11/12/17 12:59 10/14/17 17:21 Heparin Sodium (Porcine) (Heparin 5000 units/ml) 5,000 units EVERY 12 HOURS SUBQ 10/13/17 21:00 11/12/17 20:59 10/14/17 08:29 Hydralazine HCl (Apresoline) 25 mg Q4H PRN ORAL bp over 160 syst 10/14/17 12:15 11/12/17 10:14 Hydralazine HCl (Apresoline) 25 mg Q8HR ORAL 10/14/17 14:00 11/13/17 13:59 10/14/17 19:00 Lansoprazole (Prevacid) 30 mg DAILY ORAL 10/14/17 09:00 11/13/17 08:59 10/14/17 08:35 Levothyroxine Sodium (Synthroid) 100 mcg DAILY@0630 ORAL 10/15/17 06:30 11/14/17 06:29 Metoprolol Tartrate (Lopressor) 12.5 mg Q12HR ORAL 10/13/17 21:00 11/12/17 20:59 10/14/17 08:23 Vancomycin HCl (Vanco rx to dose) 1 ea DAILY PRN MISC Per rx protocol 10/13/17 14:00 11/12/17 13:59 Vancomycin HCl 1 gm/Dextrose 275 ml @ 183.708 mls/hr ONCE ONCE IVPB 10/14/17 20:30 10/14/17 21:59 Patric Wellington M.D. Oct 14, 2017 19:40
[2017-10-14] MEDS ORDERED: Vancomycin 1gm/D5W 275ml IVPB ONE ×2 (20:30)
[2017-10-15] VITALS (7 sets, daily range): BP systolic 155–172; BP diastolic 69–95
[2017-10-15] MEDS: HydrALAZINE 25mg tab ORAL PRN ×2 (00:08→11:25)
[2017-10-15] MEDS: HydrALAZINE 25mg tab ORAL SCH ×3 (05:46→21:10)
[2017-10-15] MEDS: Albuterol ud Inhalation HHN SCH ×3 (08:37→19:00)
[2017-10-15] MEDS: Docusate 100mg cap ORAL SCH ×3 (09:29→17:47)
[2017-10-15] MEDS: Aspirin Baby 81mg ORAL SCH (09:29)
[2017-10-15] MEDS: Metoprolol Tartrate 12.5mg TAB ORAL SCH ×2 (09:37→21:08)
[2017-10-15] MEDS: Heparin 5000 units/ml inj SUBQ SCH ×2 (09:46→21:13)
--- NOTE | 2017-10-15 10:19 | General Progress Note ---
Assessment/Plan Status: stable Status Narrative Pneumonia Diarrhea HTN CKD Anemia Low Iron Low Alb Low Thyroid High Chol CAD COPD Multi Abd Surgeries DM Assessment/Plan no labs today adjust BP meds antibiotics per ID breathing treatment 2D echo Pending kidney LUIS ENRIQUE Pending IV Iron Subjective ROS Limited/Unobtainable: No Constitutional: Reports: malaise Allergies: Coded Allergies: No Known Allergies (Unverified , 10/13/17) Objective Last 24 Hour Vital Signs Date Time Temp Pulse Resp B/P (MAP) Pulse Ox O2 Delivery O2 Flow Rate FiO2 10/15/17 09:38 157/73 10/15/17 09:37 86 157/73 10/15/17 09:29 86 157/73 10/15/17 08:38 95 Room Air 21 10/15/17 08:38 86 20 95 Room Air 21 10/15/17 08:38 Room Air 21 10/15/17 08:35 73 20 157/73 10/15/17 05:46 161/69 10/15/17 04:48 98.1 62 18 161/69 92 Room Air 10/15/17 00:08 172/95 10/15/17 00:00 98.2 66 18 172/95 94 Nasal Cannula 4.0 10/14/17 21:32 Nasal Cannula 10/14/17 21:32 Nasal Cannula 10/14/17 21:10 155/97 10/14/17 20:37 88 165/107 10/14/17 20:10 Nasal Cannula 4.0 10/14/17 20:10 98 Nasal Cannula 4.0 10/14/17 20:00 98.3 88 20 165/107 92 Room Air 10/14/17 19:00 84 157/103 10/14/17 19:00 157/103 10/14/17 17:21 79 183/84 10/14/17 16:02 101.7 79 18 183/84 93 Nasal Cannula 2.0 10/14/17 14:12 86 22 99 Nasal Cannula 4.0 10/14/17 13:59 78 22 96 Nasal Cannula 4.0 10/14/17 13:57 78 22 Nasal Cannula 4.0 10/14/17 13:55 Nasal Cannula 4.0 10/14/17 13:54 96 Nasal Cannula 4.0 10/14/17 12:56 187/84 10/14/17 12:00 96.8 63 20 185/72 96 Nasal Cannula 4.0 10/14/17 10:41 66 187/84 Intake and Output 10/14/17 10/15/17 19:00 07:00 Intake Total 240 ml 455.000 ml Output Total 800 ml 800 ml Balance -560 ml -345.000 ml Intake Oral 240 ml 180 ml IV Total 275.000 ml Output Urine Total 800 ml 800 ml Laboratory Tests 10/14/17 18:10: Random Vancomycin Level 8.3 Height (Feet): 5 Height (Inches): 7.00 Weight (Pounds): 130 General Appearance: no apparent distress Cardiovascular: normal rate Respiratory/Chest: decreased breath sounds Abdomen: soft Neurologic: other - right face paralysis Objective no other change MOY MARTINEZ Oct 15, 2017 10:19
--- NOTE | 2017-10-15 11:46 | Cardiology Report ---
APPROVED REPORT EXAM: Two-dimensional and M-mode echocardiogram with Doppler and color Doppler. INDICATION Congestive Heart Failure M-Mode DIMENSIONS IVSd1.6 (0.7-1.1cm)Left Atrium (MM)3.3 (1.6-4.0cm) LVDd2.5 (3.5-5.6cm)Aortic Root3.0 (2.0-3.7cm) PWd1.2 (0.7-1.1cm)Aortic Cusp Exc.1.8 (1.5-2.0cm) LVDs1.6 (2.5-4.0cm) PWs1.3 cm Normal left ventricular chamber size, systolic function and wall motion. Left ventricular ejection fraction estimated to be 60-65 %. Moderate-severe left ventricular hypertrophy. No evidence of pericardial effusion. All other cardiac chamber sizes are within normal limits. Mild focal aortic valve sclerosis with adequate cusp excursion. Mildly thickened mitral valve leaflets with normal excursion. Mild mitral annulus and aortic root calcification. Normal pulmonic valve structure. Normal tricuspid valve structure. IVC dilated at 2.3 cm with physiologic collapse suggestive of increased RA pressure. A color flow and spectral Doppler study was performed and revealed: Mild aortic regurgitation. Moderate mitral regurgitation. Mitral inflow velocities indicates possible pseudo normalization pattern implying moderately elevated left atrial pressure (Grade II ). Mild tricuspid regurgitation. Tricuspid systolic velocities suggests peak right ventricular systolic pressure of 56 mmHg, consistent with moderate pulmonary hypertension. Trace pulmonic regurgitation present.
--- NOTE | 2017-10-15 12:51 | Pulmonology Progress Note ---
Assessment/Plan Problems: (1) HCAP (healthcare-associated pneumonia) (2) Fever (3) Sepsis (4) Diabetes mellitus (5) CKD (chronic kidney disease) Assessment/Plan afebrile continue abx check the cultures check electrolytes chest PT cxr in few days all meds and noted reviewed Subjective ROS Limited/Unobtainable: No Allergies: Coded Allergies: No Known Allergies (Unverified , 10/13/17) Objective Last 24 Hour Vital Signs Date Time Temp Pulse Resp B/P (MAP) Pulse Ox O2 Delivery O2 Flow Rate FiO2 10/15/17 12:00 97.9 62 20 169/72 91 10/15/17 11:25 163/73 10/15/17 09:38 157/73 10/15/17 09:37 86 157/73 10/15/17 09:29 86 157/73 10/15/17 08:44 88 18 99 Room Air 10/15/17 08:38 95 Room Air 21 10/15/17 08:38 86 20 95 Room Air 21 10/15/17 08:38 Room Air 21 10/15/17 08:35 73 20 157/73 10/15/17 05:46 161/69 10/15/17 04:48 98.1 62 18 161/69 92 Room Air 10/15/17 00:08 172/95 10/15/17 00:00 98.2 66 18 172/95 94 Nasal Cannula 4.0 10/14/17 21:32 Nasal Cannula 10/14/17 21:32 Nasal Cannula 10/14/17 21:10 155/97 10/14/17 20:37 88 165/107 10/14/17 20:10 Nasal Cannula 4.0 10/14/17 20:10 98 Nasal Cannula 4.0 10/14/17 20:00 98.3 88 20 165/107 92 Room Air 10/14/17 19:00 84 157/103 10/14/17 19:00 157/103 10/14/17 17:21 79 183/84 10/14/17 16:02 101.7 79 18 183/84 93 Nasal Cannula 2.0 10/14/17 14:12 86 22 99 Nasal Cannula 4.0 10/14/17 13:59 78 22 96 Nasal Cannula 4.0 10/14/17 13:57 78 22 Nasal Cannula 4.0 10/14/17 13:55 Nasal Cannula 4.0 10/14/17 13:54 96 Nasal Cannula 4.0 10/14/17 12:56 187/84 Intake and Output 10/14/17 10/15/17 19:00 07:00 Intake Total 240 ml 455.000 ml Output Total 800 ml 800 ml Balance -560 ml -345.000 ml Intake Oral 240 ml 180 ml IV Total 275.000 ml Output Urine Total 800 ml 800 ml Objective General Appearance: WD/WN HEENT: normocephalic Respiratory/Chest: chest wall non-tender Breasts: no masses Cardiovascular: normal peripheral pulses Abdomen: normal bowel sounds Genitourinary: normal external genitalia Skin: no rash Neurologic/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 Complete 10/13/17 02:45 Nasal Nares Influenza Types A,B Antigen (HEATHER) - Final Complete 10/13/17 03:05 Rectum VRE Culture - Final NO VANCOMYCIN RESISTANT ENTEROCOCCUS ... Complete Laboratory Tests 10/14/17 18:10: Random Vancomycin Level 8.3 Current Medications Medications (Trade) Dose Ordered Sig/Jennie Route PRN Reason Start Time Stop Time Status Last Admin Dose Admin Albuterol Sulfate (Proventil) 2.5 mg TIDRT HHN 10/14/17 13:00 10/19/17 12:59 10/15/17 08:37 Amlodipine Besylate (Norvasc) 5 mg BID ORAL 10/14/17 18:00 11/13/17 08:59 10/15/17 09:29 Aspirin (ASA) 81 mg DAILY ORAL 10/14/17 09:00 11/13/17 08:59 10/15/17 09:29 Cefepime HCl 2 gm/ Dextrose 55 ml @ 110 mls/hr Q24H IVPB 10/13/17 15:00 10/20/17 14:59 10/14/17 17:14 Docusate Sodium (Colace) 100 mg THREE TIMES A DAY ORAL 10/13/17 13:00 11/12/17 12:59 10/15/17 12:47 Heparin Sodium (Porcine) (Heparin 5000 units/ml) 5,000 units EVERY 12 HOURS SUBQ 10/13/17 21:00 11/12/17 20:59 10/15/17 09:46 Hydralazine HCl (Apresoline) 25 mg Q4H PRN ORAL bp over 160 syst 10/14/17 12:15 11/12/17 10:14 10/15/17 11:25 Hydralazine HCl (Apresoline) 50 mg Q8HR ORAL 10/15/17 14:00 11/14/17 13:59 10/15/17 09:38 Lansoprazole (Prevacid) 30 mg DAILY ORAL 10/14/17 09:00 11/13/17 08:59 10/15/17 09:30 Levothyroxine Sodium (Synthroid) 100 mcg DAILY@0630 ORAL 10/15/17 06:30 11/14/17 06:29 10/15/17 05:46 Metoprolol Tartrate (Lopressor) 25 mg Q12HR ORAL 10/15/17 09:30 11/14/17 09:29 10/15/17 09:37 Vancomycin HCl (Vanco rx to dose) 1 ea DAILY PRN MISC Per rx protocol 10/13/17 14:00 11/12/17 13:59 ROBBY COLE Oct 15, 2017 12:51
[2017-10-15] MEDS: Cefepime HCl 2 GM in D5W 55 ML IVPB SCH (14:46)
--- NOTE | 2017-10-15 14:58 | Infectious Diseases Prog Note ---
Assessment/Plan Problems: (1) HCAP (healthcare-associated pneumonia) Assessment & Plan: continue vancomycin with cefepime empiric coverage, pending cultures . (2) Sepsis Assessment & Plan: due to the above, await blood culture , continue vancomycin with cefepime empiric coverage (3) Diarrhea Assessment & Plan: rule out C diff , await screening for C diff toxin , continue flagyl empirically (4) Diabetes mellitus Assessment & Plan: recommend tight glycemic control to keep blood glucose between 100-140 (5) CKD (chronic kidney disease) Assessment & Plan: monitor renal function, adjust meds as per cr clearance , nephrology is following Subjective Constitutional: Reports: no symptoms HEENT: Reports: no symptoms Respiratory: Reports: no symptoms Breasts: Reports: no symptoms Cardiovascular: Reports: no symptoms Gastrointestinal/Abdominal: Reports: no symptoms Genitourinary: Reports: no symptoms Neurologic: Reports: no symptoms Psychiatric: Reports: no symptoms Skin: Reports: no symptoms Endocrine: Reports: no symptoms Hematologic: Reports: no symptoms Musculoskeletal: Reports: no symptoms Allergies: Coded Allergies: No Known Allergies (Unverified , 10/13/17) Objective Vital Signs Last 24 Hour Vital Signs Date Time Temp Pulse Resp B/P (MAP) Pulse Ox O2 Delivery O2 Flow Rate FiO2 10/15/17 13:15 81 18 96 Room Air 21 10/15/17 13:15 81 18 96 Room Air 10/15/17 12:00 97.9 62 20 169/72 91 10/15/17 11:25 163/73 10/15/17 09:38 157/73 10/15/17 09:37 86 157/73 10/15/17 09:29 86 157/73 10/15/17 08:44 88 18 99 Room Air 10/15/17 08:38 95 Room Air 21 10/15/17 08:38 86 20 95 Room Air 21 10/15/17 08:38 Room Air 21 10/15/17 08:35 73 20 157/73 10/15/17 05:46 161/69 10/15/17 04:48 98.1 62 18 161/69 92 Room Air 10/15/17 00:08 172/95 10/15/17 00:00 98.2 66 18 172/95 94 Nasal Cannula 4.0 10/14/17 21:32 Nasal Cannula 1/14/18 21:32 Nasal Cannula 10/14/17 21:10 155/97 10/14/17 20:37 88 165/107 10/14/17 20:10 Nasal Cannula 4.0 10/14/17 20:10 98 Nasal Cannula 4.0 10/14/17 20:00 98.3 88 20 165/107 92 Room Air 10/14/17 19:00 84 157/103 10/14/17 19:00 157/103 10/14/17 17:21 79 183/84 10/14/17 16:02 101.7 79 18 183/84 93 Nasal Cannula 2.0 Height (Feet): 5 Height (Inches): 7.00 Weight (Pounds): 130 General Appearance: WD/WN, no acute distress HEENT: normocephalic, atraumatic, anicteric, mucous membranes moist Respiratory/Chest: chest wall non-tender, no respiratory distress, no accessory muscle use, decreased breath sounds, crackles/rales Cardiovascular: normal peripheral pulses, normal rate, regular rhythm, no gallop/murmur, no JVD Abdomen: normal bowel sounds, soft, non tender, no organomegaly, non distended , no mass, no scars Extremities: no cyanosis, no clubbing Skin: no rash, no lesions, ulcers Neurologic/Psychiatric: alert, oriented x 3, responsive Microbiology Date/Time Source Procedure Growth Status 10/13/17 02:45 Blood Blood Culture - Preliminary NO GROWTH AFTER 48 HOURS Resulted 10/13/17 02:30 Blood Blood Culture - Preliminary NO GROWTH AFTER 48 HOURS Resulted 10/13/17 03:05 Nasal Nares MRSA Culture - Final NO METHICILLIN RESISTANT STAPH AUREUS... Complete 10/13/17 02:45 Nasal Nares Influenza Types A,B Antigen (HEATHER) - Final Complete 10/13/17 03:05 Rectum VRE Culture - Final NO VANCOMYCIN RESISTANT ENTEROCOCCUS ... Complete Laboratory Tests Test 10/14/17 18:10 Random Vancomycin Level 8.3 ug/mL Current Medications Medications (Trade) Dose Ordered Sig/Jennie Route PRN Reason Start Time Stop Time Status Last Admin Dose Admin Albuterol Sulfate (Proventil) 2.5 mg TIDRT HHN 10/14/17 13:00 10/19/17 12:59 10/15/17 08:37 Amlodipine Besylate (Norvasc) 5 mg BID ORAL 10/14/17 18:00 11/13/17 08:59 10/15/17 09:29 Aspirin (ASA) 81 mg DAILY ORAL 10/14/17 09:00 11/13/17 08:59 10/15/17 09:29 Cefepime HCl 2 gm/ Dextrose 55 ml @ 110 mls/hr Q24H IVPB 10/13/17 15:00 10/20/17 14:59 10/14/17 17:14 Docusate Sodium (Colace) 100 mg THREE TIMES A DAY ORAL 10/13/17 13:00 11/12/17 12:59 10/15/17 12:47 Heparin Sodium (Porcine) (Heparin 5000 units/ml) 5,000 units EVERY 12 HOURS SUBQ 10/13/17 21:00 11/12/17 20:59 10/15/17 09:46 Hydralazine HCl (Apresoline) 25 mg Q4H PRN ORAL bp over 160 syst 10/14/17 12:15 11/12/17 10:14 10/15/17 11:25 Hydralazine HCl (Apresoline) 50 mg Q8HR ORAL 10/15/17 14:00 11/14/17 13:59 10/15/17 09:38 Lansoprazole (Prevacid) 30 mg DAILY ORAL 10/14/17 09:00 11/13/17 08:59 10/15/17 09:30 Levothyroxine Sodium (Synthroid) 100 mcg DAILY@0630 ORAL 10/15/17 06:30 11/14/17 06:29 10/15/17 05:46 Metoprolol Tartrate (Lopressor) 25 mg Q12HR ORAL 10/15/17 09:30 11/14/17 09:29 10/15/17 09:37 Vancomycin HCl (Vanco rx to dose) 1 ea DAILY PRN MISC Per rx protocol 10/13/17 14:00 11/12/17 13:59 Patric Wellington M.D. Oct 15, 2017 14:58
[2017-10-15] MEDS ORDERED: Tubing IV Secondary IV ONE (20:49)
[2017-10-16] VITALS (7 sets, daily range): BP systolic 120–191; BP diastolic 62–82
[2017-10-16] MEDS: HydrALAZINE 25mg tab ORAL SCH ×3 (06:33→20:21)
[2017-10-16] MEDS: Albuterol ud Inhalation HHN SCH ×3 (07:00→19:00)
[2017-10-16 07:17] LABS: BASOPHILS % (AUTO) 1.2 % (0.0-2.0); EOSINOPHILS % (AUTO) 5.1 % (0.0-3.0); HEMATOCRIT 35.6 % (37.0-47.0); HEMOGLOBIN 11.2 G/DL (12.0-16.0); LYMPHOCYTES % (AUTO) 28.7 % (20.0-45.0); MEAN CORPUSCULAR VOLUME 78 FL (80-99); PLATELET COUNT 275 K/UL (150-450); RED BLOOD COUNT 4.55 M/UL (4.20-5.40); RED CELL DISTRIBUTION WIDTH 12.6 % (11.6-14.8); WHITE BLOOD COUNT 7.8 K/UL (4.8-10.8)
[2017-10-16 07:53] LABS: ALANINE AMINOTRANSFERASE 22 U/L (12-78); ALBUMIN/GLOBULIN RATIO 0.4 (1.0-2.7); ALKALINE PHOSPHATASE 76 U/L (46-116); ANION GAP 10 mmol/L (5-15); ASPARTATE AMINO TRANSFERASE 30 U/L (15-37); BILIRUBIN,TOTAL 0.3 MG/DL (0.2-1.0); BLOOD UREA NITROGEN 22 mg/dL (7-18); CALCIUM 8.9 MG/DL (8.5-10.1); CARBON DIOXIDE 26 MMOL/L (21-32); CHLORIDE 107 MMOL/L (98-107); CREATININE 1.7 MG/DL (0.55-1.30); POTASSIUM 3.7 MMOL/L (3.5-5.1); SODIUM 143 MMOL/L (136-145)
[2017-10-16] MEDS: Metoprolol Tartrate 12.5mg TAB ORAL SCH ×2 (08:32→20:21)
[2017-10-16] MEDS: Docusate 100mg cap ORAL SCH ×3 (08:32→18:16)
[2017-10-16] MEDS: Aspirin Baby 81mg ORAL SCH (08:32)
[2017-10-16] MEDS: Heparin 5000 units/ml inj SUBQ SCH ×2 (08:34→20:24)
[2017-10-16 09:15] LABS: PHOSPHORUS 3.3 MG/DL (2.5-4.9)
--- NOTE | 2017-10-16 10:26 | Diagnostic Imaging Report ---
Indication:Elevated Bun and Creatinine. Technique: Grayscale and duplex Doppler imaging of the kidneys performed. Comparison: None Findings: The study is of average limited nature from a technical standpoint. Both kidneys appear small measuring no more than 7 cm longitudinally. There is no hydronephrosis. There is a fusiform aneurysm of the aorta demonstrated but the aneurysm is grossly undermeasured based on the images provided. The maximum diameter measurement obtained was 3.4 cm on this exam. I do not believe this to be a reliable measurement. Recommend follow-up. Bladder is nondistended. IVC is partially seen and unremarkable. IMPRESSION: Technically poor examination showing no hydronephrosis and small bilateral kidneys. Fusiform aneurysm of the abdominal aorta. Suggest repeat ultrasound and/or CT for further evaluation
[2017-10-16] MEDS ORDERED: Vancomycin 1250mg/D5W 250ml IVPB SCH ×2 (11:00→14:00)
--- NOTE | 2017-10-16 14:14 | General Progress Note ---
Assessment/Plan Status: stable Status Narrative Pneumonia Diarrhea HTN CKD Anemia Low Iron Low Alb Low Thyroid High Chol CAD COPD Multi Abd Surgeries DM Assessment/Plan on cefepime and vanco adjust BP meds breathing treatment 2D echo : Left ventricular ejection fraction estimated to be 60-65 %. Moderate-severe left ventricular hypertrophy. kidney LUIS ENRIQUE : Technically poor examination showing no hydronephrosis and small bilateral kidneys. IV Iron check CXR ? DC in am on PO Subjective ROS Limited/Unobtainable: No Constitutional: Reports: malaise Allergies: Coded Allergies: No Known Allergies (Unverified , 10/13/17) Objective Last 24 Hour Vital Signs Date Time Temp Pulse Resp B/P (MAP) Pulse Ox O2 Delivery O2 Flow Rate FiO2 10/16/17 11:54 84 18 96 Room Air 10/16/17 11:49 89 20 96 Nasal Cannula 2.0 28 10/16/17 11:22 98.4 57 18 147/68 97 10/16/17 08:32 87 154/61 10/16/17 08:32 87 154/61 10/16/17 08:00 97.7 63 21 127/64 97 10/16/17 07:07 Room Air 10/16/17 07:02 96 Nasal Cannula 28 10/16/17 07:02 Nasal Cannula 2.0 28 10/16/17 07:02 87 20 96 Nasal Cannula 2.0 28 10/16/17 06:33 154/61 10/16/17 04:39 153/70 96 Nasal Cannula 4.0 10/16/17 04:16 97.5 64 20 191/82 91 Room Air 10/15/17 23:40 96 Nasal Cannula 4.0 10/15/17 23:36 97.5 56 20 156/78 89 Room Air 10/15/17 21:10 167/89 10/15/17 21:08 57 167/89 10/15/17 19:42 96.5 57 18 167/89 89 Room Air 10/15/17 19:30 Room Air 10/15/17 19:30 Room Air 21 10/15/17 19:28 Room Air 21 10/15/17 19:28 96 Room Air 21 10/15/17 17:48 65 155/73 10/15/17 16:00 98.1 65 20 155/73 91 Intake and Output 10/15/17 10/16/17 19:00 07:00 Output Total 650 ml 1150 ml Balance -650 ml -1150 ml Output Urine Total 650 ml 1150 ml # Bowel Movements 1 1 Current Medications Medications (Trade) Dose Ordered Sig/Jennie Route PRN Reason Start Time Stop Time Status Last Admin Dose Admin Albuterol Sulfate (Proventil) 2.5 mg TIDRT HHN 10/14/17 13:00 10/19/17 12:59 10/16/17 11:49 Amlodipine Besylate (Norvasc) 5 mg BID ORAL 10/14/17 18:00 11/13/17 08:59 10/16/17 08:32 Aspirin (ASA) 81 mg DAILY ORAL 10/14/17 09:00 11/13/17 08:59 10/16/17 08:32 Cefepime HCl 2 gm/ Dextrose 55 ml @ 110 mls/hr Q24H IVPB 10/13/17 15:00 10/20/17 14:59 10/15/17 14:46 Docusate Sodium (Colace) 100 mg THREE TIMES A DAY ORAL 10/13/17 13:00 11/12/17 12:59 10/16/17 08:32 Heparin Sodium (Porcine) (Heparin 5000 units/ml) 5,000 units EVERY 12 HOURS SUBQ 10/13/17 21:00 11/12/17 20:59 10/16/17 08:34 Hydralazine HCl (Apresoline) 25 mg Q4H PRN ORAL bp over 160 syst 10/14/17 12:15 11/12/17 10:14 10/15/17 11:25 Hydralazine HCl (Apresoline) 50 mg Q8HR ORAL 10/15/17 14:00 11/14/17 13:59 10/16/17 06:33 Lansoprazole (Prevacid) 30 mg DAILY ORAL 10/14/17 09:00 11/13/17 08:59 10/16/17 08:32 Levothyroxine Sodium (Synthroid) 100 mcg DAILY@0630 ORAL 10/15/17 06:30 11/14/17 06:29 10/16/17 06:32 Magnesium Sulfate 100 ml @ 100 mls/hr Q1H IVPB 10/16/17 11:30 10/16/17 15:29 10/16/17 12:05 Metoprolol Tartrate (Lopressor) 25 mg Q12HR ORAL 10/15/17 09:30 11/14/17 09:29 10/16/17 08:32 Vancomycin HCl (Vanco rx to dose) 1 ea DAILY PRN MISC Per rx protocol 10/13/17 14:00 11/12/17 13:59 Vancomycin HCl/ Dextrose 250 ml @ 166.667 mls/hr Q48H IVPB 10/16/17 14:00 10/21/17 23:59 Laboratory Tests 10/16/17 05:35: White Blood Count 7.8, Red Blood Count 4.55, Hemoglobin 11.2L, Hematocrit 35.6L , Mean Corpuscular Volume 78L, Mean Corpuscular Hemoglobin 24.5L, Mean Corpuscular Hemoglobin Concent 31.3L, Red Cell Distribution Width 12.6, Platelet Count 275, Mean Platelet Volume 7.8, Neutrophils (%) (Auto) 55.0, Lymphocytes (%) (Auto) 28.7, Monocytes (%) (Auto) 10.0, Eosinophils (%) (Auto) 5.1H, Basophils (%) (Auto) 1.2, Sodium Level 143, Potassium Level 3.7, Chloride Level 107, Carbon Dioxide Level 26, Anion Gap 10, Blood Urea Nitrogen 22H, Creatinine 1.7H, Estimat Glomerular Filtration Rate , Glucose Level 85, Uric Acid 5.5, Calcium Level 8.9, Phosphorus Level 3.3, Magnesium Level 1.5L, Total Bilirubin 0.3, Gamma Glutamyl Transpeptidase 25, Aspartate Amino Transf (AST/ SGOT) 30, Alanine Aminotransferase (ALT/SGPT) 22, Alkaline Phosphatase 76, C- Reactive Protein, Quantitative 8.5H, Pro-B-Type Natriuretic Peptide 1946H, Total Protein 7.3, Albumin 2.0L, Globulin 5.3, Albumin/Globulin Ratio 0.4L, Random Vancomycin Level 10.8 Height (Feet): 5 Height (Inches): 7.00 Weight (Pounds): 130 General Appearance: no apparent distress Neck: limited range of motion Cardiovascular: normal rate Respiratory/Chest: decreased breath sounds Abdomen: soft Objective no other change MOY MARTINEZ Oct 16, 2017 14:14
[2017-10-16] MEDS ORDERED: Iron Sucrose 200 MG in NS 50 ML IV ONE (15:15)
--- NOTE | 2017-10-16 15:18 | Infectious Diseases Prog Note ---
Assessment/Plan Problems: (1) HCAP (healthcare-associated pneumonia) Assessment & Plan: continue vancomycin with cefepime empiric coverage for now for 8 days , cultures so far are negative . (2) Sepsis Assessment & Plan: due to the above, with negative blood culture, continue vancomycin with cefepime empiric coverage (3) Diarrhea Assessment & Plan: not due to C diff , screening for C diff is negative , will stop flagyl empirically (4) Diabetes mellitus Assessment & Plan: recommend tight glycemic control to keep blood glucose between 100-140 (5) CKD (chronic kidney disease) Assessment & Plan: monitor renal function, adjust meds as per cr clearance , nephrology is following Subjective Constitutional: Reports: no symptoms HEENT: Reports: no symptoms Respiratory: Reports: dry cough Breasts: Reports: no symptoms Cardiovascular: Reports: no symptoms Gastrointestinal/Abdominal: Reports: no symptoms Genitourinary: Reports: no symptoms Neurologic: Reports: no symptoms Psychiatric: Reports: no symptoms Skin: Reports: no symptoms Endocrine: Reports: no symptoms Hematologic: Reports: no symptoms Musculoskeletal: Reports: no symptoms Allergies: Coded Allergies: No Known Allergies (Unverified , 10/13/17) Objective Vital Signs Last 24 Hour Vital Signs Date Time Temp Pulse Resp B/P (MAP) Pulse Ox O2 Delivery O2 Flow Rate FiO2 10/16/17 14:19 147/68 10/16/17 11:54 84 18 96 Room Air 10/16/17 11:49 89 20 96 Nasal Cannula 2.0 28 10/16/17 11:22 98.4 57 18 147/68 97 10/16/17 08:32 87 154/61 10/16/17 08:32 87 154/61 10/16/17 08:00 97.7 63 21 127/64 97 10/16/17 07:07 Room Air 10/16/17 07:02 96 Nasal Cannula 28 10/16/17 07:02 Nasal Cannula 2.0 28 10/16/17 07:02 87 20 96 Nasal Cannula 2.0 28 10/16/17 06:33 154/61 10/16/17 04:39 153/70 96 Nasal Cannula 4.0 10/16/17 04:16 97.5 64 20 191/82 91 Room Air 10/15/17 23:40 96 Nasal Cannula 4.0 10/15/17 23:36 97.5 56 20 156/78 89 Room Air 10/15/17 21:10 167/89 10/15/17 21:08 57 167/89 10/15/17 19:42 96.5 57 18 167/89 89 Room Air 10/15/17 19:30 Room Air 10/15/17 19:30 Room Air 21 10/15/17 19:28 Room Air 21 10/15/17 19:28 96 Room Air 21 10/15/17 17:48 65 155/73 10/15/17 16:00 98.1 65 20 155/73 91 Height (Feet): 5 Height (Inches): 7.00 Weight (Pounds): 130 General Appearance: WD/WN, no acute distress HEENT: normocephalic, atraumatic, anicteric, mucous membranes moist, PERRL Respiratory/Chest: chest wall non-tender, normal breath sounds, no respiratory distress, no accessory muscle use, decreased breath sounds, expiratory wheezing Cardiovascular: normal peripheral pulses, normal rate, regular rhythm, no gallop/murmur, no JVD Abdomen: normal bowel sounds, soft, non tender, no organomegaly, non distended , no mass, no scars Extremities: no cyanosis, no clubbing Skin: no rash, no lesions, ulcers Neurologic/Psychiatric: alert, oriented x 3 Lymphatic: no neck adenopathy, no groin adenopathy Microbiology Date/Time Source Procedure Growth Status 10/15/17 20:00 Stool Clostridium difficile Toxin Assay - Final Complete Laboratory Tests Test 10/16/17 05:35 White Blood Count 7.8 K/UL (4.8-10.8) Red Blood Count 4.55 M/UL (4.20-5.40) Hemoglobin 11.2 G/DL (12.0-16.0) L Hematocrit 35.6 % (37.0-47.0) L Mean Corpuscular Volume 78 FL (80-99) L Mean Corpuscular Hemoglobin 24.5 PG (27.0-31.0) L Mean Corpuscular Hemoglobin Concent 31.3 G/DL (32.0-36.0) L Red Cell Distribution Width 12.6 % (11.6-14.8) Platelet Count 275 K/UL (150-450) Mean Platelet Volume 7.8 FL (6.5-10.1) Neutrophils (%) (Auto) 55.0 % (45.0-75.0) Lymphocytes (%) (Auto) 28.7 % (20.0-45.0) Monocytes (%) (Auto) 10.0 % (1.0-10.0) Eosinophils (%) (Auto) 5.1 % (0.0-3.0) H Basophils (%) (Auto) 1.2 % (0.0-2.0) Sodium Level 143 MMOL/L (136-145) Potassium Level 3.7 MMOL/L (3.5-5.1) Chloride Level 107 MMOL/L (98-107) Carbon Dioxide Level 26 MMOL/L (21-32) Anion Gap 10 mmol/L (5-15) Blood Urea Nitrogen 22 mg/dL (7-18) H Creatinine 1.7 MG/DL (0.55-1.30) H Estimat Glomerular Filtration Rate mL/min (>60) Glucose Level 85 MG/DL (74-106) Uric Acid 5.5 MG/DL (2.6-7.2) Calcium Level 8.9 MG/DL (8.5-10.1) Phosphorus Level 3.3 MG/DL (2.5-4.9) Magnesium Level 1.5 MG/DL (1.8-2.4) L Total Bilirubin 0.3 MG/DL (0.2-1.0) Gamma Glutamyl Transpeptidase 25 U/L (5-85) Aspartate Amino Transf (AST/SGOT) 30 U/L (15-37) Alanine Aminotransferase (ALT/SGPT) 22 U/L (12-78) Alkaline Phosphatase 76 U/L (46-116) C-Reactive Protein, Quantitative 8.5 mg/dL (0.00-0.90) H Pro-B-Type Natriuretic Peptide 1946 pg/mL (0-125) H Total Protein 7.3 G/DL (6.4-8.2) Albumin 2.0 G/DL (3.4-5.0) L Globulin 5.3 g/dL Albumin/Globulin Ratio 0.4 (1.0-2.7) L Random Vancomycin Level 10.8 ug/mL Current Medications Medications (Trade) Dose Ordered Sig/Jennie Route PRN Reason Start Time Stop Time Status Last Admin Dose Admin Albuterol Sulfate (Proventil) 2.5 mg TIDRT HHN 10/14/17 13:00 10/19/17 12:59 10/16/17 11:49 Amlodipine Besylate (Norvasc) 5 mg BID ORAL 10/14/17 18:00 11/13/17 08:59 10/16/17 08:32 Aspirin (ASA) 81 mg DAILY ORAL 10/14/17 09:00 11/13/17 08:59 10/16/17 08:32 Cefepime HCl 2 gm/ Dextrose 55 ml @ 110 mls/hr Q24H IVPB 10/13/17 15:00 10/20/17 14:59 10/15/17 14:46 Docusate Sodium (Colace) 100 mg THREE TIMES A DAY ORAL 10/13/17 13:00 11/12/17 12:59 10/16/17 14:19 Heparin Sodium (Porcine) (Heparin 5000 units/ml) 5,000 units EVERY 12 HOURS SUBQ 10/13/17 21:00 11/12/17 20:59 10/16/17 08:34 Hydralazine HCl (Apresoline) 25 mg Q4H PRN ORAL bp over 160 syst 10/14/17 12:15 11/12/17 10:14 10/15/17 11:25 Hydralazine HCl (Apresoline) 50 mg Q8HR ORAL 10/15/17 14:00 11/14/17 13:59 10/16/17 14:19 Iron Sucrose 200 mg/Sodium Chloride 60 ml @ 200 mls/hr ONCE ONCE IV 10/16/17 15:15 10/16/17 15:32 Lansoprazole (Prevacid) 30 mg DAILY ORAL 10/14/17 09:00 11/13/17 08:59 10/16/17 08:32 Levothyroxine Sodium (Synthroid) 100 mcg DAILY@0630 ORAL 10/15/17 06:30 11/14/17 06:29 10/16/17 06:32 Magnesium Sulfate 100 ml @ 100 mls/hr Q1H IVPB 10/16/17 11:30 10/16/17 15:29 10/16/17 12:05 Metoprolol Tartrate (Lopressor) 25 mg Q12HR ORAL 10/15/17 09:30 11/14/17 09:29 10/16/17 08:32 Vancomycin HCl (Vanco rx to dose) 1 ea DAILY PRN MISC Per rx protocol 10/13/17 14:00 11/12/17 13:59 Vancomycin HCl/ Dextrose 250 ml @ 166.667 mls/hr Q48H IVPB 10/16/17 14:00 10/21/17 23:59 10/16/17 14:18 Patric Wellington M.D. Oct 16, 2017 15:18
[2017-10-16] MEDS: Cefepime HCl 2 GM in D5W 55 ML IVPB SCH (15:21)
--- NOTE | 2017-10-16 16:09 | Diagnostic Imaging Report ---
Indication: Cough Comparison: 10/13/2017 A single view chest radiograph was obtained. Findings: Pulmonary vascularity is prominent with some prominence of the interstitium again noted. The heart is enlarged. Aorta is enlarged. Sternotomy again noted. IMPRESSION: Mild congestion suspected.
--- NOTE | 2017-10-16 19:36 | Pulmonology Progress Note ---
Assessment/Plan Problems: (1) HCAP (healthcare-associated pneumonia) (2) Fever (3) Sepsis (4) Diabetes mellitus (5) CKD (chronic kidney disease) Assessment/Plan cxr showing mild congestion afebrile continue abx check the cultures check electrolytes chest PT cxr in few days all meds and noted reviewed Subjective ROS Limited/Unobtainable: No Constitutional: Reports: no symptoms HEENT: Repors: no symptoms Respiratory: Reports: no symptoms Allergies: Coded Allergies: No Known Allergies (Unverified , 10/13/17) Objective Last 24 Hour Vital Signs Date Time Temp Pulse Resp B/P (MAP) Pulse Ox O2 Delivery O2 Flow Rate FiO2 10/16/17 18:16 67 160/70 10/16/17 15:53 98.1 67 18 160/70 95 10/16/17 14:19 147/68 10/16/17 11:54 84 18 96 Room Air 10/16/17 11:49 89 20 96 Nasal Cannula 2.0 28 10/16/17 11:22 98.4 57 18 147/68 97 10/16/17 08:32 87 154/61 10/16/17 08:32 87 154/61 10/16/17 08:00 97.7 63 21 127/64 97 10/16/17 07:07 Room Air 10/16/17 07:02 96 Nasal Cannula 28 10/16/17 07:02 Nasal Cannula 2.0 28 10/16/17 07:02 87 20 96 Nasal Cannula 2.0 28 10/16/17 06:33 154/61 10/16/17 04:39 153/70 96 Nasal Cannula 4.0 10/16/17 04:16 97.5 64 20 191/82 91 Room Air 10/15/17 23:40 96 Nasal Cannula 4.0 10/15/17 23:36 97.5 56 20 156/78 89 Room Air 10/15/17 21:10 167/89 10/15/17 21:08 57 167/89 10/15/17 19:42 96.5 57 18 167/89 89 Room Air Intake and Output 10/15/17 10/16/17 19:00 07:00 Output Total 650 ml 1150 ml Balance -650 ml -1150 ml Output Urine Total 650 ml 1150 ml # Bowel Movements 1 1 Objective General Appearance: WD/WN HEENT: normocephalic Respiratory/Chest: chest wall non-tender Breasts: no masses Cardiovascular: normal peripheral pulses Abdomen: normal bowel sounds Genitourinary: normal external genitalia Skin: no rash Neurologic/Psychiatric: front line leader II-XII grossly normal, no motor/sensory deficits Microbiology Date/Time Source Procedure Growth Status 10/15/17 20:00 Stool Clostridium difficile Toxin Assay - Final Complete Laboratory Tests 10/16/17 05:35: White Blood Count 7.8, Red Blood Count 4.55, Hemoglobin 11.2L, Hematocrit 35.6L , Mean Corpuscular Volume 78L, Mean Corpuscular Hemoglobin 24.5L, Mean Corpuscular Hemoglobin Concent 31.3L, Red Cell Distribution Width 12.6, Platelet Count 275, Mean Platelet Volume 7.8, Neutrophils (%) (Auto) 55.0, Lymphocytes (%) (Auto) 28.7, Monocytes (%) (Auto) 10.0, Eosinophils (%) (Auto) 5.1H, Basophils (%) (Auto) 1.2, Sodium Level 143, Potassium Level 3.7, Chloride Level 107, Carbon Dioxide Level 26, Anion Gap 10, Blood Urea Nitrogen 22H, Creatinine 1.7H, Estimat Glomerular Filtration Rate , Glucose Level 85, Uric Acid 5.5, Calcium Level 8.9, Phosphorus Level 3.3, Magnesium Level 1.5L, Total Bilirubin 0.3, Gamma Glutamyl Transpeptidase 25, Aspartate Amino Transf (AST/ SGOT) 30, Alanine Aminotransferase (ALT/SGPT) 22, Alkaline Phosphatase 76, C- Reactive Protein, Quantitative 8.5H, Pro-B-Type Natriuretic Peptide 1946H, Total Protein 7.3, Albumin 2.0L, Globulin 5.3, Albumin/Globulin Ratio 0.4L, Random Vancomycin Level 10.8 Current Medications Medications (Trade) Dose Ordered Sig/Jennie Route PRN Reason Start Time Stop Time Status Last Admin Dose Admin Albuterol Sulfate (Proventil) 2.5 mg TIDRT HHN 10/14/17 13:00 10/19/17 12:59 10/16/17 11:49 Amlodipine Besylate (Norvasc) 5 mg BID ORAL 10/14/17 18:00 11/13/17 08:59 10/16/17 18:16 Aspirin (ASA) 81 mg DAILY ORAL 10/14/17 09:00 11/13/17 08:59 10/16/17 08:32 Cefepime HCl 2 gm/ Dextrose 55 ml @ 110 mls/hr Q24H IVPB 10/13/17 15:00 10/20/17 14:59 10/16/17 15:21 Docusate Sodium (Colace) 100 mg THREE TIMES A DAY ORAL 10/13/17 13:00 11/12/17 12:59 10/16/17 18:16 Heparin Sodium (Porcine) (Heparin 5000 units/ml) 5,000 units EVERY 12 HOURS SUBQ 10/13/17 21:00 11/12/17 20:59 10/16/17 08:34 Hydralazine HCl (Apresoline) 25 mg Q4H PRN ORAL bp over 160 syst 10/14/17 12:15 11/12/17 10:14 10/15/17 11:25 Hydralazine HCl (Apresoline) 50 mg Q8HR ORAL 10/15/17 14:00 11/14/17 13:59 10/16/17 14:19 Lansoprazole (Prevacid) 30 mg DAILY ORAL 10/14/17 09:00 11/13/17 08:59 10/16/17 08:32 Levothyroxine Sodium (Synthroid) 100 mcg DAILY@0630 ORAL 10/15/17 06:30 11/14/17 06:29 10/16/17 06:32 Metoprolol Tartrate (Lopressor) 25 mg Q12HR ORAL 10/15/17 09:30 11/14/17 09:29 10/16/17 08:32 Vancomycin HCl (Vanco rx to dose) 1 ea DAILY PRN MISC Per rx protocol 10/13/17 14:00 11/12/17 13:59 Vancomycin HCl/ Dextrose 250 ml @ 166.667 mls/hr Q48H IVPB 10/16/17 14:00 10/21/17 23:59 10/16/17 14:18 ROBBY COLE Oct 16, 2017 19:36
[2017-10-17 03:49] VITALS: BP 174/81
[2017-10-17] MEDS: HydrALAZINE 25mg tab ORAL PRN (04:46)
[2017-10-17] MEDS: HydrALAZINE 25mg tab ORAL SCH ×2 (06:12→13:19)
[2017-10-17] MEDS: Albuterol ud Inhalation HHN SCH ×2 (07:00→13:00)
[2017-10-17] MEDS: Metoprolol Tartrate 12.5mg TAB ORAL SCH ×2 (07:57→20:34)
[2017-10-17] MEDS: Docusate 100mg cap ORAL SCH ×3 (07:57→17:25)
[2017-10-17] MEDS: Aspirin Baby 81mg ORAL SCH (07:59)
[2017-10-17 08:00] VITALS: BP 142/72
[2017-10-17] MEDS: Heparin 5000 units/ml inj SUBQ SCH ×2 (08:00→20:35)
[2017-10-17 08:19] LABS: BASOPHILS % (AUTO) 0.6 % (0.0-2.0); EOSINOPHILS % (AUTO) 3.6 % (0.0-3.0); HEMATOCRIT 32.8 % (37.0-47.0); HEMOGLOBIN 10.4 G/DL (12.0-16.0); LYMPHOCYTES % (AUTO) 28.8 % (20.0-45.0); MEAN CORPUSCULAR VOLUME 78 FL (80-99); MONOCYTES % (AUTO) 7.1 % (1.0-10.0); NEUTROPHILS % (AUTO) 59.9 % (45.0-75.0); PLATELET COUNT 296 K/UL (150-450); RED BLOOD COUNT 4.19 M/UL (4.20-5.40); RED CELL DISTRIBUTION WIDTH 12.3 % (11.6-14.8); WHITE BLOOD COUNT 8.4 K/UL (4.8-10.8)
[2017-10-17 10:03] LABS: ALANINE AMINOTRANSFERASE 21 U/L (12-78); ALBUMIN 2.2 G/DL (3.4-5.0); ALBUMIN/GLOBULIN RATIO 0.4 (1.0-2.7); ALKALINE PHOSPHATASE 76 U/L (46-116); ANION GAP 11 mmol/L (5-15); ASPARTATE AMINO TRANSFERASE 25 U/L (15-37); BILIRUBIN,TOTAL 0.4 MG/DL (0.2-1.0); BLOOD UREA NITROGEN 29 mg/dL (7-18); CALCIUM 8.9 MG/DL (8.5-10.1); CARBON DIOXIDE 26 MMOL/L (21-32); CHLORIDE 106 MMOL/L (98-107); CREATININE 1.6 MG/DL (0.55-1.30); PHOSPHORUS 3.5 MG/DL (2.5-4.9); POTASSIUM 3.4 MMOL/L (3.5-5.1); SODIUM 142 MMOL/L (136-145)
[2017-10-17 12:00] VITALS: BP 146/73
--- NOTE | 2017-10-17 12:37 | General Progress Note ---
Assessment/Plan Status: stable Status Narrative Pneumonia Diarrhea HTN CKD Anemia [place] Low Thyroid High Chol CAD COPD Multi Abd Surgeries DM Assessment/Plan on cefepime and vanco will DC on Augmentin BP stable breathing treatment 2D echo : Left ventricular ejection fraction estimated to be 60-65 %. Moderate-severe left ventricular hypertrophy. kidney LUIS ENRIQUE : Technically poor examination showing no hydronephrosis and small bilateral kidneys. check CXR : Mild congestion suspected. Subjective ROS Limited/Unobtainable: No Constitutional: Reports: malaise, weakness Allergies: Coded Allergies: No Known Allergies (Unverified , 10/13/17) Objective Last 24 Hour Vital Signs Date Time Temp Pulse Resp B/P (MAP) Pulse Ox O2 Delivery O2 Flow Rate FiO2 10/17/17 12:00 97.3 58 20 146/73 94 10/17/17 08:00 98.1 71 21 142/72 93 10/17/17 07:57 63 157/78 10/17/17 07:57 63 157/78 10/17/17 06:14 98 Room Air 10/17/17 06:12 157/78 10/17/17 04:46 174/81 10/17/17 03:49 97.9 63 20 174/81 90 Room Air 10/16/17 23:45 97.5 59 20 154/64 92 Room Air 10/16/17 20:30 Nasal Cannula 10/16/17 20:23 Nasal Cannula 2.0 28 10/16/17 20:23 97 Nasal Cannula 2.0 28 10/16/17 20:23 81 20 97 Nasal Cannula 2.0 28 10/16/17 20:21 64 120/62 10/16/17 20:21 120/62 10/16/17 20:12 98.1 64 19 120/62 95 Room Air 10/16/17 18:16 67 160/70 10/16/17 15:53 98.1 67 18 160/70 95 10/16/17 14:19 147/68 Intake and Output 10/16/17 10/17/17 19:00 07:00 Intake Total 240 ml Output Total 400 ml 500 ml Balance -160 ml -500 ml Intake Oral 240 ml Output Urine Total 400 ml 500 ml # Bowel Movements 1 Current Medications Medications (Trade) Dose Ordered Sig/Jennie Route PRN Reason Start Time Stop Time Status Last Admin Dose Admin Albuterol Sulfate (Proventil) 2.5 mg TIDRT HHN 10/14/17 13:00 10/19/17 12:59 10/16/17 11:49 Amlodipine Besylate (Norvasc) 5 mg BID ORAL 10/14/17 18:00 11/13/17 08:59 10/17/17 07:57 Amoxicillin/ Clavulanate Potassium (Augmentin) 875 mg EVERY 12 HOURS ORAL 10/17/17 21:00 10/24/17 20:59 UNV Aspirin (ASA) 81 mg DAILY ORAL 10/14/17 09:00 11/13/17 08:59 10/17/17 07:59 Cefepime HCl 2 gm/ Dextrose 55 ml @ 110 mls/hr Q24H IVPB 10/13/17 15:00 10/20/17 14:59 10/16/17 15:21 Docusate Sodium (Colace) 100 mg THREE TIMES A DAY ORAL 10/13/17 13:00 11/12/17 12:59 10/17/17 07:57 Heparin Sodium (Porcine) (Heparin 5000 units/ml) 5,000 units EVERY 12 HOURS SUBQ 10/13/17 21:00 11/12/17 20:59 10/17/17 08:00 Hydralazine HCl (Apresoline) 25 mg Q4H PRN ORAL bp over 160 syst 10/14/17 12:15 11/12/17 10:14 10/17/17 04:46 Hydralazine HCl (Apresoline) 50 mg Q8HR ORAL 10/15/17 14:00 11/14/17 13:59 10/17/17 06:12 Lansoprazole (Prevacid) 30 mg DAILY ORAL 10/14/17 09:00 11/13/17 08:59 10/17/17 07:57 Levothyroxine Sodium (Synthroid) 100 mcg DAILY@0630 ORAL 10/15/17 06:30 11/14/17 06:29 10/17/17 06:12 Metoprolol Tartrate (Lopressor) 25 mg Q12HR ORAL 10/15/17 09:30 11/14/17 09:29 10/17/17 07:57 Potassium Chloride (K-Dur) 40 meq ONCE ONCE ORAL 10/17/17 13:00 1/17/18 13:01 Vancomycin HCl (Vanco rx to dose) 1 ea DAILY PRN MISC Per rx protocol 10/13/17 14:00 11/12/17 13:59 Vancomycin HCl/ Dextrose 250 ml @ 166.667 mls/hr Q48H IVPB 10/16/17 14:00 10/21/17 23:59 10/16/17 14:18 Laboratory Tests 10/17/17 06:30: White Blood Count 8.4, Red Blood Count 4.19L, Hemoglobin 10.4L, Hematocrit 32.8L , Mean Corpuscular Volume 78L, Mean Corpuscular Hemoglobin 24.7L, Mean Corpuscular Hemoglobin Concent 31.6L, Red Cell Distribution Width 12.3, Platelet Count 296, Mean Platelet Volume 7.9, Neutrophils (%) (Auto) 59.9, Lymphocytes (%) (Auto) 28.8, Monocytes (%) (Auto) 7.1, Eosinophils (%) (Auto) 3.6H, Basophils (%) (Auto) 0.6, Sodium Level 142, Potassium Level 3.4L, Chloride Level 106, Carbon Dioxide Level 26, Anion Gap 11, Blood Urea Nitrogen 29H, Creatinine 1.6H, Estimat Glomerular Filtration Rate , Glucose Level 102, Uric Acid 6.2, Calcium Level 8.9, Phosphorus Level 3.5, Magnesium Level 1.7L, Total Bilirubin 0.4, Aspartate Amino Transf (AST/SGOT) 25, Alanine Aminotransferase (ALT/SGPT) 21, Alkaline Phosphatase 76, Pro-B-Type Natriuretic Peptide 1698H, Total Protein 7.5, Albumin 2.2L, Globulin 5.3, Albumin/Globulin Ratio 0.4L Height (Feet): 5 Height (Inches): 7.00 Weight (Pounds): 130 General Appearance: no apparent distress Cardiovascular: regular rhythm Respiratory/Chest: decreased breath sounds Abdomen: soft Objective no other change MOY MARTINEZ Oct 17, 2017 12:37
[2017-10-17] MEDS ORDERED: LEVOTHYROXINE100 MCG ORAL (12:40)
[2017-10-17] MEDS ORDERED: HYDRALAZINE HCL25 M1 ORAL (12:40)
[2017-10-17] MEDS ORDERED: LOPRESSOR25 M1 ORAL (12:40)
[2017-10-17] MEDS ORDERED: LANSOPRAZOLE30 MG ORAL (12:40)
[2017-10-17] MEDS ORDERED: ASPIRIN81 MG ORAL (12:40)
[2017-10-17] MEDS ORDERED: NORVASC5 MG ORAL (12:40)
[2017-10-17] MEDS ORDERED: COLACE100 MG ORAL (12:40)
[2017-10-17] MEDS ORDERED: AMOX TR-K CLV1 EAC2 ORAL (12:40)
--- NOTE | 2017-10-17 12:41 | Discharge Instructions ---
Discharge Instructions Discharge Instructions Follow up with: with PMD at [facility] Special Instructions routin skin care- Aspiration precautions- For Congestive Heart Failure Reminder Report to your physician any weight gain of 5 pounds or more in one week. MOY MARTINEZ Oct 17, 2017 12:41
[2017-10-17] MEDS: Cefepime HCl 2 GM in D5W 55 ML IVPB SCH (14:16)
--- NOTE | 2017-10-17 15:06 | Infectious Diseases Prog Note ---
Assessment/Plan Problems: (1) HCAP (healthcare-associated pneumonia) Assessment & Plan: continue vancomycin with cefepime empiric coverage for now for 8 days , cultures so far are negative . may switch to oral Augmentin to finish her course (2) Sepsis Assessment & Plan: due to the above, with negative blood culture, continue vancomycin with cefepime empiric coverage (3) Diarrhea Assessment & Plan: not due to C diff , screening for C diff is negative , will stop flagyl empirically (4) Diabetes mellitus Assessment & Plan: recommend tight glycemic control to keep blood glucose between 100-140 (5) CKD (chronic kidney disease) Assessment & Plan: monitor renal function, adjust meds as per cr clearance , nephrology is following Subjective Constitutional: Reports: no symptoms HEENT: Reports: no symptoms Respiratory: Reports: no symptoms Breasts: Reports: no symptoms Cardiovascular: Reports: no symptoms Gastrointestinal/Abdominal: Reports: no symptoms Genitourinary: Reports: no symptoms Neurologic: Reports: no symptoms Psychiatric: Reports: no symptoms Skin: Reports: no symptoms Endocrine: Reports: no symptoms Hematologic: Reports: no symptoms Musculoskeletal: Reports: no symptoms Allergies: Coded Allergies: No Known Allergies (Unverified , 10/13/17) Objective Vital Signs Last 24 Hour Vital Signs Date Time Temp Pulse Resp B/P (MAP) Pulse Ox O2 Delivery O2 Flow Rate FiO2 10/17/17 13:19 146/73 10/17/17 12:00 97.3 58 20 146/73 94 10/17/17 08:00 98.1 71 21 142/72 93 10/17/17 07:57 63 157/78 10/17/17 07:57 63 157/78 10/17/17 06:14 98 Room Air 10/17/17 06:12 157/78 10/17/17 04:46 174/81 10/17/17 03:49 97.9 63 20 174/81 90 Room Air 10/16/17 23:45 97.5 59 20 154/64 92 Room Air 10/16/17 20:30 Nasal Cannula 10/16/17 20:23 Nasal Cannula 2.0 28 10/16/17 20:23 97 Nasal Cannula 2.0 28 10/16/17 20:23 81 20 97 Nasal Cannula 2.0 28 10/16/17 20:21 64 120/62 1/16/18 20:21 120/62 10/16/17 20:12 98.1 64 19 120/62 95 Room Air 10/16/17 18:16 67 160/70 18 15:53 98.1 67 18 160/70 95 Height (Feet): 5 Height (Inches): 7.00 Weight (Pounds): 130 General Appearance: WD/WN, no acute distress HEENT: normocephalic, atraumatic, anicteric, mucous membranes moist, PERRL Respiratory/Chest: chest wall non-tender, lungs clear, normal breath sounds, no respiratory distress, no accessory muscle use, decreased breath sounds, crackles/rales Cardiovascular: normal peripheral pulses, normal rate, regular rhythm, no gallop/murmur, no JVD Abdomen: normal bowel sounds, soft, non tender, no organomegaly, non distended , no mass, no scars Extremities: no cyanosis, no clubbing Skin: no rash, no lesions, no ulcers Neurologic/Psychiatric: alert, oriented x 3 Lymphatic: no neck adenopathy, no groin adenopathy Microbiology Date/Time Source Procedure Growth Status 10/15/17 20:00 Stool Clostridium difficile Toxin Assay - Final Complete Laboratory Tests Test 10/17/17 06:30 White Blood Count 8.4 K/UL (4.8-10.8) Red Blood Count 4.19 M/UL (4.20-5.40) L Hemoglobin 10.4 G/DL (12.0-16.0) L Hematocrit 32.8 % (37.0-47.0) L Mean Corpuscular Volume 78 FL (80-99) L Mean Corpuscular Hemoglobin 24.7 PG (27.0-31.0) L Mean Corpuscular Hemoglobin Concent 31.6 G/DL (32.0-36.0) L Red Cell Distribution Width 12.3 % (11.6-14.8) Platelet Count 296 K/UL (150-450) Mean Platelet Volume 7.9 FL (6.5-10.1) Neutrophils (%) (Auto) 59.9 % (45.0-75.0) Lymphocytes (%) (Auto) 28.8 % (20.0-45.0) Monocytes (%) (Auto) 7.1 % (1.0-10.0) Eosinophils (%) (Auto) 3.6 % (0.0-3.0) H Basophils (%) (Auto) 0.6 % (0.0-2.0) Sodium Level 142 MMOL/L (136-145) Potassium Level 3.4 MMOL/L (3.5-5.1) L Chloride Level 106 MMOL/L (98-107) Carbon Dioxide Level 26 MMOL/L (21-32) Anion Gap 11 mmol/L (5-15) Blood Urea Nitrogen 29 mg/dL (7-18) H Creatinine 1.6 MG/DL (0.55-1.30) H Estimat Glomerular Filtration Rate mL/min (>60) Glucose Level 102 MG/DL (74-106) Uric Acid 6.2 MG/DL (2.6-7.2) Calcium Level 8.9 MG/DL (8.5-10.1) Phosphorus Level 3.5 MG/DL (2.5-4.9) Magnesium Level 1.7 MG/DL (1.8-2.4) L Total Bilirubin 0.4 MG/DL (0.2-1.0) Aspartate Amino Transf (AST/SGOT) 25 U/L (15-37) Alanine Aminotransferase (ALT/SGPT) 21 U/L (12-78) Alkaline Phosphatase 76 U/L (46-116) Pro-B-Type Natriuretic Peptide 1698 pg/mL (0-125) H Total Protein 7.5 G/DL (6.4-8.2) Albumin 2.2 G/DL (3.4-5.0) L Globulin 5.3 g/dL Albumin/Globulin Ratio 0.4 (1.0-2.7) L Current Medications Medications (Trade) Dose Ordered Sig/Jennie Route PRN Reason Start Time Stop Time Status Last Admin Dose Admin Albuterol Sulfate (Proventil) 2.5 mg TIDRT HHN 10/14/17 13:00 10/19/17 12:59 10/16/17 11:49 Amlodipine Besylate (Norvasc) 5 mg BID ORAL 10/14/17 18:00 11/13/17 08:59 10/17/17 07:57 Amoxicillin/ Clavulanate Potassium (Augmentin) 500 mg EVERY 12 HOURS ORAL 10/18/17 09:00 10/25/17 08:59 Aspirin (ASA) 81 mg DAILY ORAL 10/14/17 09:00 11/13/17 08:59 10/17/17 07:59 Cefepime HCl 2 gm/ Dextrose 55 ml @ 110 mls/hr Q24H IVPB 10/13/17 15:00 10/20/17 14:59 10/16/17 15:21 Docusate Sodium (Colace) 100 mg THREE TIMES A DAY ORAL 10/13/17 13:00 11/12/17 12:59 10/17/17 13:19 Heparin Sodium (Porcine) (Heparin 5000 units/ml) 5,000 units EVERY 12 HOURS SUBQ 10/13/17 21:00 11/12/17 20:59 10/17/17 08:00 Hydralazine HCl (Apresoline) 25 mg Q4H PRN ORAL bp over 160 syst 10/14/17 12:15 11/12/17 10:14 10/17/17 04:46 Hydralazine HCl (Apresoline) 50 mg Q8HR ORAL 10/15/17 14:00 11/14/17 13:59 10/17/17 13:19 Lansoprazole (Prevacid) 30 mg DAILY ORAL 10/14/17 09:00 11/13/17 08:59 10/17/17 07:57 Levothyroxine Sodium (Synthroid) 100 mcg DAILY@0630 ORAL 10/15/17 06:30 11/14/17 06:29 10/17/17 06:12 Metoprolol Tartrate (Lopressor) 25 mg Q12HR ORAL 10/15/17 09:30 11/14/17 09:29 10/17/17 07:57 Vancomycin HCl (Vanco rx to dose) 1 ea DAILY PRN MISC Per rx protocol 10/13/17 14:00 11/12/17 13:59 Vancomycin HCl/ Dextrose 250 ml @ 166.667 mls/hr Q48H IVPB 10/16/17 14:00 10/21/17 23:59 10/16/17 14:18 Patric Wellington M.D. Oct 17, 2017 15:06
[2017-10-17 15:53] VITALS: BP 144/63
--- NOTE | 2017-10-17 18:55 | Pulmonology Progress Note ---
Assessment/Plan Problems: (1) HCAP (healthcare-associated pneumonia) (2) Fever (3) Sepsis (4) Diabetes mellitus (5) CKD (chronic kidney disease) Assessment/Plan no new complains cxr showing mild congestion afebrile continue abx check the cultures check electrolytes chest PT cxr in few days all meds and noted reviewed Subjective ROS Limited/Unobtainable: No Constitutional: Reports: no symptoms HEENT: Repors: no symptoms Respiratory: Reports: no symptoms Allergies: Coded Allergies: No Known Allergies (Unverified , 10/13/17) Objective Last 24 Hour Vital Signs Date Time Temp Pulse Resp B/P (MAP) Pulse Ox O2 Delivery O2 Flow Rate FiO2 10/17/17 17:25 65 144/63 10/17/17 16:00 Room Air 10/17/17 15:53 97.0 65 21 144/63 90 10/17/17 13:30 67 16 95 Nasal Cannula 2.0 28 10/17/17 13:29 Nasal Cannula 10/17/17 13:19 146/73 10/17/17 12:00 97.3 58 20 146/73 94 10/17/17 12:00 Room Air 10/17/17 08:30 65 16 96 Nasal Cannula 2.0 28 10/17/17 08:00 Room Air 10/17/17 08:00 98.1 71 21 142/72 93 10/17/17 07:57 63 157/78 10/17/17 07:57 63 157/78 10/17/17 06:14 98 Room Air 10/17/17 06:12 157/78 10/17/17 04:46 174/81 10/17/17 03:49 97.9 63 20 174/81 90 Room Air 10/16/17 23:45 97.5 59 20 154/64 92 Room Air 10/16/17 20:30 Nasal Cannula 10/16/17 20:23 Nasal Cannula 2.0 28 10/16/17 20:23 97 Nasal Cannula 2.0 28 10/16/17 20:23 81 20 97 Nasal Cannula 2.0 28 10/16/17 20:21 64 120/62 10/16/17 20:21 120/62 10/16/17 20:12 98.1 64 19 120/62 95 Room Air Intake and Output 10/16/17 10/17/17 19:00 07:00 Intake Total 240 ml Output Total 400 ml 500 ml Balance -160 ml -500 ml Intake Oral 240 ml Output Urine Total 400 ml 500 ml # Bowel Movements 1 Objective General Appearance: WD/WN HEENT: normocephalic Respiratory/Chest: chest wall non-tender Breasts: no masses Cardiovascular: normal peripheral pulses Abdomen: normal bowel sounds Genitourinary: normal external genitalia Skin: no rash Neurologic/Psychiatric: continuous improvement manager II-XII grossly normal, no motor/sensory deficits Microbiology Date/Time Source Procedure Growth Status 10/15/17 20:00 Stool Clostridium difficile Toxin Assay - Final Complete Laboratory Tests 10/17/17 06:30: White Blood Count 8.4, Red Blood Count 4.19L, Hemoglobin 10.4L, Hematocrit 32.8L , Mean Corpuscular Volume 78L, Mean Corpuscular Hemoglobin 24.7L, Mean Corpuscular Hemoglobin Concent 31.6L, Red Cell Distribution Width 12.3, Platelet Count 296, Mean Platelet Volume 7.9, Neutrophils (%) (Auto) 59.9, Lymphocytes (%) (Auto) 28.8, Monocytes (%) (Auto) 7.1, Eosinophils (%) (Auto) 3.6H, Basophils (%) (Auto) 0.6, Sodium Level 142, Potassium Level 3.4L, Chloride Level 106, Carbon Dioxide Level 26, Anion Gap 11, Blood Urea Nitrogen 29H, Creatinine 1.6H, Estimat Glomerular Filtration Rate , Glucose Level 102, Uric Acid 6.2, Calcium Level 8.9, Phosphorus Level 3.5, Magnesium Level 1.7L, Total Bilirubin 0.4, Aspartate Amino Transf (AST/SGOT) 25, Alanine Aminotransferase (ALT/SGPT) 21, Alkaline Phosphatase 76, Pro-B-Type Natriuretic Peptide 1698H, Total Protein 7.5, Albumin 2.2L, Globulin 5.3, Albumin/Globulin Ratio 0.4L Current Medications Medications (Trade) Dose Ordered Sig/Jennie Route PRN Reason Start Time Stop Time Status Last Admin Dose Admin Albuterol Sulfate (Proventil) 2.5 mg TIDRT HHN 10/14/17 13:00 10/19/17 12:59 10/16/17 11:49 Amlodipine Besylate (Norvasc) 5 mg BID ORAL 10/14/17 18:00 11/13/17 08:59 10/17/17 17:25 Amoxicillin/ Clavulanate Potassium (Augmentin) 500 mg EVERY 12 HOURS ORAL 10/18/17 09:00 10/25/17 08:59 Aspirin (ASA) 81 mg DAILY ORAL 10/14/17 09:00 11/13/17 08:59 10/17/17 07:59 Cefepime HCl 2 gm/ Dextrose 55 ml @ 110 mls/hr Q24H IVPB 10/13/17 15:00 10/20/17 14:59 10/16/17 15:21 Docusate Sodium (Colace) 100 mg THREE TIMES A DAY ORAL 10/13/17 13:00 11/12/17 12:59 10/17/17 17:25 Heparin Sodium (Porcine) (Heparin 5000 units/ml) 5,000 units EVERY 12 HOURS SUBQ 10/13/17 21:00 11/12/17 20:59 10/17/17 08:00 Hydralazine HCl (Apresoline) 25 mg Q4H PRN ORAL bp over 160 syst 10/14/17 12:15 11/12/17 10:14 10/17/17 04:46 Hydralazine HCl (Apresoline) 50 mg Q8HR ORAL 10/15/17 14:00 11/14/17 13:59 10/17/17 13:19 Lansoprazole (Prevacid) 30 mg DAILY ORAL 10/14/17 09:00 11/13/17 08:59 10/17/17 07:57 Levothyroxine Sodium (Synthroid) 100 mcg DAILY@0630 ORAL 10/15/17 06:30 11/14/17 06:29 10/17/17 06:12 Metoprolol Tartrate (Lopressor) 25 mg Q12HR ORAL 10/15/17 09:30 11/14/17 09:29 10/17/17 07:57 Vancomycin HCl (Vanco rx to dose) 1 ea DAILY PRN MISC Per rx protocol 10/13/17 14:00 11/12/17 13:59 Vancomycin HCl/ Dextrose 250 ml @ 166.667 mls/hr Q48H IVPB 10/16/17 14:00 10/21/17 23:59 10/16/17 14:18 ROBBY COLE Oct 17, 2017 18:55
[2017-10-17 20:00] VITALS: BP 172/82
[2017-10-17 21:00] VITALS: BP 156/73
[2017-10-17] MEDS ORDERED: Tubing IV Secondary IV ONE (21:22)
--- NOTE | 2017-10-18 14:58 | Cardiology Report ---
APPROVED REPORT EKG Measurement Heart [id number] Normal sinus rhythm Left ventricular hypertrophy with repolarization abnormality Anteroseptal infarct, age undetermined Abnormal ECG
--- NOTE | 2017-10-18 15:06 | Discharge Summary ---
Discharge Summary Hospital Course Date of Admission Oct 13, 2017 at 04:15 Date of Discharge Oct 17, 2017 at 21:23 Admitting Diagnosis pneumonia HPI Tish Green is a 87 year old female who was admitted on Oct 13, 2017 at 04: 15 for Pneumonia Hospital Course [id number] Discharge Discharge Disposition Patient was discharged to SNF/Subacute Facility(03) Discharge Diagnoses: Discharge Instructions Discharge Instructions Follow up with: with PMD at SNF Myranda Rinaldi NP Oct 18, 2017 15:06
--- NOTE | 2017-10-18 17:30 | Discharge Summary 2 SIG ---
DATE OF ADMISSION: 10/13/2017 DATE OF DISCHARGE: 10/17/2017 CONSULTANTS: 1. Patric Wellington M.D. 2. Nir Lilly M.D. BRIEF HOSPITAL COURSE: The patient is an 87-year-old female who is a halfway resident with history of multiple medical problems including previous CVA, hypothyroidism, hyperlipidemia, CKD, coronary artery disease, previous coronary bypass graft surgery, dementia, hypertension, diabetes mellitus, and chronic obstructive pulmonary disease, was brought to emergency room for changes in mental status and was somewhat tachypneic with fever. On evaluation at ED, chest x-ray showed bilateral interstitial infiltrates. Influenza screens were negative. She was then admitted for evaluation of pneumonia with fever. She was started empirically on vancomycin and cefepime. She was having diarrhea and was given Flagyl. She was given breathing treatment. Renal ultrasound done showed no hydronephrosis with small bilateral kidney. 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 Echocardiogram done showed ejection fraction of 60% to 65% with [id number] left ventricular hypertrophy. No evidence of pericardial effusion and tricuspid systolic velocity. She has right ventricular systolic pressure of 56 consistent with moderate pulmonary hypertension. There was mild aortic regurgitation and moderate mitral regurgitation. C. diff was negative. Flagyl was discontinued. Blood cultures did not isolate any growth. Intravenous antibiotic was discontinued and was transitioned to oral Augmentin. She was discharged back to halfway. FINAL DIAGNOSES: 1. Pneumonia. 2. Diarrhea. 3. Hypertension. 4. Chronic kidney disease. 5. Anemia. 6. Hypothyroidism. 7. Hypercholesterolemia. 8. Coronary artery disease. 9. Chronic obstructive pulmonary disease. 10. Diabetes mellitus. 11. Healthcare-associated pneumonia. DISPOSITION: The patient was discharged to [facility]. DISCHARGE MEDICATIONS: Refer to medication list. Suresh Corondao M.D. I have been assigned to dictate discharge summary on this account and I was not involved in the patient's management. Myranda Rinaldi N.P. DR: LAZARO JOB#: [id number] CC:
== END 2017-10-17 21:23 | DRG 871 ==
LOC: EDBD 01:31 → EMR 04:05 → 4W 04:15 → EDBEDREQ 06:04
DX: A41.9 Sepsis, unspecified organism (principal); J18.9 Pneumonia, unspecified organism; N18.3 Chronic kidney disease, stage 3 (moderate); I69.351 Hemiplegia and hemiparesis following cerebral infarction affecting right dominant side; F03.90 Unspecified dementia, unspecified severity, without behavioral disturbance, psychotic disturbance, mood disturbance, and anxiety; E11.22 Type 2 diabetes mellitus with diabetic chronic kidney disease; J44.9 Chronic obstructive pulmonary disease, unspecified; D64.9 Anemia, unspecified; I12.9 Hypertensive chronic kidney disease with stage 1 through stage 4 chronic kidney disease, or unspecified chronic kidney disease; E03.9 Hypothyroidism, unspecified; I25.10 Atherosclerotic heart disease of native coronary artery without angina pectoris; Y95 Nosocomial condition; E78.5 Hyperlipidemia, unspecified; R09.02 Hypoxemia; R19.7 Diarrhea, unspecified; Z95.1 Presence of aortocoronary bypass graft
CPT/HCPCS: 36415; 71045; 76775; 80053; 80061; 80202; 81003; 82550; 82553; 82607; 82728; 82746; 82977; 83036; 83540; 83550; 83605; 83735; 83880; 84100; 84443; 84484; 84550; 85025; 85610; 85730; 86140; 86710; 87040; 87081; 87324; 93005; 93306; 94640; 94664; 94760; 99285; J8499

== ENCOUNTER 2018-09-14 16:17 | Inpatient (IN) | payer MEDICARE, MEDICAID ==
[~2018-09-14] VITALS: Ht 160 cm; Wt 55.8 kg
[~2018-09-14 16:17] MED LIST: AMOX TR-K CLV1 EAC2 ORAL; ASPIRIN81 MG ORAL; COLACE100 MG ORAL; HYDRALAZINE HCL25 M1 ORAL; LANSOPRAZOLE30 MG ORAL; LEVOTHYROXINE100 MCG ORAL; LOPRESSOR25 M1 ORAL; NORVASC5 MG ORAL
[2018-09-14 16:44] LABS: BASOPHILS % (AUTO) 1.8 % (0.0-2.0); EOSINOPHILS % (AUTO) 0.4 % (0.0-3.0); HEMATOCRIT 33.4 % (37.0-47.0); HEMOGLOBIN 10.8 G/DL (12.0-16.0); MEAN CORPUSCULAR VOLUME 71 FL (80-99); MONOCYTES % (AUTO) 8.2 % (1.0-10.0); NEUTROPHILS % (AUTO) 72.6 % (45.0-75.0); PLATELET COUNT 287 K/UL (150-450); RED BLOOD COUNT 4.71 M/UL (4.20-5.40); RED CELL DISTRIBUTION WIDTH 14.3 % (11.6-14.8); WHITE BLOOD COUNT 7.9 K/UL (4.8-10.8)
[2018-09-14 16:49] VITALS: BP 185/88
--- NOTE | 2018-09-14 17:01 | Emergency Room Report ---
History of Present Illness General Chief Complaint: General Complaint Source: Patient, Medical Record, EMS Present Illness HPI Patient was sent in for altered mental status. There's no documented fever. The patient denies any pain. She states she's been eating okay without any vomiting or diarrhea. She denies any dysuria also. The patient suffers from dementia and therefore the history is somewhat questionable. She states she needs to go home to her mother whom she states she lives with. Admitted Oct 2017 1. Pneumonia. 2. Diarrhea. 3. Hypertension. 4. Chronic kidney disease. 5. Anemia. 6. Hypothyroidism. 7. Hypercholesterolemia. 8. Coronary artery disease. 9. Chronic obstructive pulmonary disease. 10. Diabetes mellitus. 11. Healthcare-associated pneumonia. 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 Hx Transient Ischemic Attacks: Yes Hx Dementia: Yes Review of Systems All Other Systems: limited Physical Exam Vital Signs Date Time Temp Pulse Resp B/P (MAP) Pulse Ox O2 Delivery O2 Flow Rate FiO2 09/14/18 16:11 98.1 93 18 218/97 95 Room Air Sp02 EP Interpretation: reviewed, normal General Appearance: well appearing, no apparent distress, other - GCS 14, Chronically Ill Head: normocephalic Eyes: bilateral eye normal inspection, bilateral eye PERRL ENT: moist mucus membranes Neck: supple Respiratory: lungs clear, normal breath sounds Cardiovascular #1: regular rate, rhythm Cardiovascular #2: 2+ radial (R) Gastrointestinal: normal inspection, normal bowel sounds, non tender, no mass, non-distended, scaphoid Genitourinary: no CVA tenderness Musculoskeletal: back normal, gait/station normal, normal range of motion, no calf tenderness Neurologic: responsive, motor strength/tone normal, DTRs symmetric, sensory intact, speech normal, other - [place] palsy R face, oriented - X1 Psychiatric: other - confabulates, occasionally anxious and combative with delusions Skin: normal color, no rash, warm/dry Medical Decision Making Diagnostic Impression: Primary Impression: NSTEMI (non-ST elevated myocardial infarction) Additional Impressions: Renal insufficiency Acute on chronic renal failure Qualified Codes: N17.9 - Acute kidney failure, unspecified; N18.3 - Chronic kidney disease, stage 3 (moderate) Dementia Qualified Codes: F03.91 - Unspecified dementia with behavioral disturbance ER Course Patient presents with alleged confusion. She denies most symptoms at this time. Differential includes AMI, electrolyte abnormality, dehydration, occult infection amongst others. The patient will be evaluated with EKG, chest x-ray and labs. The patient will be treated with some gentle IV hydration at this time. EKG with LVH. CXR increased [place]ude[place] bilat. CABG. Labs with normal WBC. Renal insuffiency. UA clear. Lab called with + troponin. Aspirin given. Re-review EKG with some ST elevation (read as LVH), not STEMI. Nitrolpast also ordered. Agitated. Ativan needed for sedation. Also transient use of non-behavioral restraints. Discussed with Dr. Coronado.- admit SDU. Laboratory Tests Test 09/14/18 16:30 09/14/18 16:48 09/14/18 18:10 White Blood Count 7.9 K/UL (4.8-10.8) Red Blood Count 4.71 M/UL (4.20-5.40) Hemoglobin 10.8 G/DL (12.0-16.0) L Hematocrit 33.4 % (37.0-47.0) L Mean Corpuscular Volume 71 FL (80-99) L Mean Corpuscular Hemoglobin 23.0 PG (27.0-31.0) L Mean Corpuscular Hemoglobin Concent 32.5 G/DL (32.0-36.0) Red Cell Distribution Width 14.3 % (11.6-14.8) Platelet Count 287 K/UL (150-450) Mean Platelet Volume 7.4 FL (6.5-10.1) Neutrophils (%) (Auto) 72.6 % (45.0-75.0) Lymphocytes (%) (Auto) 17.0 % (20.0-45.0) L Monocytes (%) (Auto) 8.2 % (1.0-10.0) Eosinophils (%) (Auto) 0.4 % (0.0-3.0) Basophils (%) (Auto) 1.8 % (0.0-2.0) Sodium Level 142 MMOL/L (136-145) Potassium Level 4.0 MMOL/L (3.5-5.1) Chloride Level 107 MMOL/L (98-107) Carbon Dioxide Level 23 MMOL/L (21-32) Anion Gap 12 mmol/L (5-15) Blood Urea Nitrogen 25 mg/dL (7-18) H Creatinine 1.8 MG/DL (0.55-1.30) H Estimate Glomerular Filtration Rate mL/min (>60) Glucose Level 117 MG/DL (74-106) H Calcium Level 9.4 MG/DL (8.5-10.1) Total Bilirubin 0.5 MG/DL (0.2-1.0) Aspartate Amino Transferase (AST) 38 U/L (15-37) H Alanine Aminotransferase (ALT) 27 U/L (12-78) Alkaline Phosphatase 110 U/L (46-116) Troponin I 0.279 ng/mL (0.000-0.056) C-Reactive Protein, Quantitative 3.6 mg/dL (0.00-0.90) H Pro-B-Type Natriuretic Peptide 3022 pg/mL (0-125) H Total Protein 9.2 G/DL (6.4-8.2) H Albumin 3.6 G/DL (3.4-5.0) Globulin 5.6 g/dL Albumin/Globulin Ratio 0.6 (1.0-2.7) L Thyroid Stimulating Hormone (TSH) 0.398 uiU/mL (0.358-3.740) Serum Alcohol < 3 mg/dL Lactic Acid Level 1.30 mmol/L (0.4-2.0) Urine Color Pale yellow Urine Appearance Clear Urine pH 6.5 (4.5-8.0) Urine Specific [place] 1.010 (1.005-1.035) Urine Protein 4+ (NEGATIVE) H Urine Glucose (UA) Negative (NEGATIVE) Urine Ketones Negative (NEGATIVE) Urine Blood 2+ (NEGATIVE) H Urine Nitrite Negative (NEGATIVE) Urine Bilirubin Negative (NEGATIVE) Urine Urobilinogen Normal MG/DL (0.0-1.0) Urine Leukocyte Esterase Negative (NEGATIVE) Urine RBC 2-4 /HPF (0 - 2) H Urine WBC 0-2 /HPF (0 - 2) Urine Squamous Epithelial Cells Occasional /LPF Urine Bacteria Few /HPF (NONE) Urine Opiates Screen Negative (NEGATIVE) Urine Barbiturates Screen Negative (NEGATIVE) Phencyclidine (PCP) Screen Negative (NEGATIVE) Urine Amphetamines Screen Negative (NEGATIVE) Urine Benzodiazepines Screen Negative (NEGATIVE) Urine Cocaine Screen Negative (NEGATIVE) Urine Marijuana (THC) Screen Negative (NEGATIVE) EKG Diagnostic Results Rate: normal Rhythm: NSR ST Segments: no acute changes - LVH Rhythm Strip Diag. Results EP Interpretation: yes Rhythm: NSR, no PVC's, no ectopy Chest X-Ray Diagnostic Results Chest X-Ray Diagnostic Results : Chest X-Ray Ordered: Yes # of Views/Limited/Complete: 1 View Indication: Other EP Interpretation: Yes Interpretation: no pneumothorax, other - interstitial increase - tortuous aorta Impression: Other Electronically Signed by: Bryant Riddle MD Last Vital Signs Date Time Temp Pulse Resp B/P (MAP) Pulse Ox O2 Delivery O2 Flow Rate FiO2 09/15/18 00:00 56 09/15/18 00:00 Room Air 09/15/18 00:00 98.1 16 156/74 (101) 94 Status: improved Disposition: ADMITTED INPATIENT Condition: Serious Referrals: Suresh Coronado MD (PCP) Bryant Riddle MD Sep 14, 2018 17:01
--- NOTE | 2018-09-14 17:04 | Diagnostic Imaging Report ---
EXAM: XR Chest, 1 View CLINICAL HISTORY: Loss of consciousness TECHNIQUE: Frontal view of the chest. COMPARISON: 10/16/2017 FINDINGS: Lungs: Nonspecific bilateral interstitial prominence may be related to interstitial edema or chronic interstitial lung disease. Stable bilateral pulmonary hyperinflation. Bibasilar atelectasis or scar. Pleural space: Unremarkable. No pneumothorax. Heart: Unremarkable. No cardiomegaly. Mediastinum: Stable postoperative mediastinum. Bones/joints: No acute osseous abnormality. IMPRESSION: Nonspecific bilateral interstitial prominence may be related to interstitial edema or chronic interstitial lung disease.
[2018-09-14] MEDS ORDERED: LORazepam Inj 2mg/ml 1ml ONE (17:09)
[2018-09-14] MEDS ORDERED: LORazepam Inj 2mg/ml 1ml IM ONE ×2 (17:15→18:00)
[2018-09-14 17:17] LABS: ANION GAP 12 mmol/L (5-15); BLOOD UREA NITROGEN 25 mg/dL (7-18); CALCIUM 9.4 MG/DL (8.5-10.1); CARBON DIOXIDE 23 MMOL/L (21-32); CHLORIDE 107 MMOL/L (98-107); CREATININE 1.8 MG/DL (0.55-1.30); SODIUM 142 MMOL/L (136-145)
[2018-09-14 17:29] LABS: ALANINE AMINOTRANSFERASE 27 U/L (12-78); ALBUMIN 3.6 G/DL (3.4-5.0); ALBUMIN/GLOBULIN RATIO 0.6 (1.0-2.7); ALKALINE PHOSPHATASE 110 U/L (46-116); ASPARTATE AMINO TRANSFERASE 38 U/L (15-37); BILIRUBIN,TOTAL 0.5 MG/DL (0.2-1.0)
[2018-09-14] MEDS ORDERED: Metoprolol 5mg/5ml Inj IVP STA (17:30)
[2018-09-14] MEDS ORDERED: Nitroglycerin 2% oint pkt TOPIC ONE (17:30)
[2018-09-14] MEDS ORDERED: OMEPRAZOLE20 M3 ORAL (17:48)
[2018-09-14] MEDS ORDERED: DONEPEZIL HCL10 MG ORAL (17:48)
[2018-09-14] MEDS ORDERED: SYNTHROID150 MCG ORAL (17:48)
[2018-09-14] MEDS ORDERED: ATORVASTATIN CA40 MG ORAL (17:48)
[2018-09-14] MEDS ORDERED: HYDRALAZINE HCL25 M1 ORAL (17:48)
[2018-09-14] MEDS ORDERED: CRANBERRY450 M4 PO (17:48)
[2018-09-14] MEDS ORDERED: MILK OF MA400 MG/51 ORAL (17:48)
[2018-09-14] MEDS ORDERED: FAMOTIDINE20 MG ORAL (17:48)
[2018-09-14] MEDS ORDERED: DOCUSATE SODIU100 MG ORAL (17:48)
[2018-09-14] MEDS ORDERED: ACETAMINOPHEN325 M1 ORAL (17:48)
[2018-09-14 18:27] LABS: APPEARANCE,URINE CLEAR; BILIRUBIN, URINE NEGATIVE (NEGATIVE); COLOR,URINE PALE YELLOW; GLUCOSE, URINE (UA) NEGATIVE (NEGATIVE); KETONES,URINE NEGATIVE (NEGATIVE); LEUKOCYTE ESTERASE ,URINE NEGATIVE (NEGATIVE); NITRITE,URINE NEGATIVE (NEGATIVE); PH,URINE 6.5 (4.5-8.0); PROTEIN,URINE 4+ (NEGATIVE); UROBILINOGEN,URINE NORMAL MG/DL (0.0-1.0)
--- NOTE | 2018-09-14 18:47 | History & Physical ---
History and Physical History & Physicial Acute on chronic renal failure Encephalopathy Elevated Troponin UTI Anemia PAST MEDICAL HISTORY: Significant for previous CVA, hypothyroidism, hyperlipemia, CKD, coronary artery disease, previous coronary bypass graft surgery, dementia, hypertension, diabetes mellitus, and COPD. # [id number] Suresh Coronado MD Sep 14, 2018 18:47
[2018-09-14] MEDS ORDERED: Haloperidol 5mg/ml Inj IM PRN (19:00)
[2018-09-14] MEDS ORDERED: LORazepam Inj 2mg/ml 1ml IV PRN (19:15)
[2018-09-14 20:45] VITALS: BP 182/79
[2018-09-14] MEDS ORDERED: cefTRIAXone 1 GM in NS 55 ML IVPB SCH (21:00)
[2018-09-14] MEDS: Donepezil 10mg tab ORAL SCH (21:00)
[2018-09-14] MEDS: Nitroglycerin Patch 0.4mg TDERMAL SCH (21:42)
[2018-09-14] MEDS: Heparin 5000 units/ml inj SUBQ SCH (21:43)
[2018-09-14] MEDS: HydrALAZINE 50mg tab ORAL SCH (21:44)
[2018-09-14] MEDS ORDERED: HydrALAZINE 25mg tab ORAL SCH (22:00)
[2018-09-15] VITALS: BP 156/74
[2018-09-15 04:00] VITALS: BP 183/89
[2018-09-15 05:07] LABS: BASOPHILS % (AUTO) 0.7 % (0.0-2.0); EOSINOPHILS % (AUTO) 3.2 % (0.0-3.0); HEMATOCRIT 31.8 % (37.0-47.0); LYMPHOCYTES % (AUTO) 29.5 % (20.0-45.0); MEAN CORPUSCULAR VOLUME 72 FL (80-99); MONOCYTES % (AUTO) 13.7 % (1.0-10.0); NEUTROPHILS % (AUTO) 53.1 % (45.0-75.0); PLATELET COUNT 263 K/UL (150-450); RED BLOOD COUNT 4.43 M/UL (4.20-5.40); RED CELL DISTRIBUTION WIDTH 14.5 % (11.6-14.8); WHITE BLOOD COUNT 6.7 K/UL (4.8-10.8)
[2018-09-15] MEDS: HydrALAZINE 50mg tab ORAL SCH ×2 (06:00→13:31)
[2018-09-15 06:04] LABS: ALANINE AMINOTRANSFERASE 18 U/L (12-78); ALBUMIN/GLOBULIN RATIO 0.6 (1.0-2.7); ALKALINE PHOSPHATASE 91 U/L (46-116); ANION GAP 9 mmol/L (5-15); ASPARTATE AMINO TRANSFERASE 31 U/L (15-37); BILIRUBIN,TOTAL 0.4 MG/DL (0.2-1.0); BLOOD UREA NITROGEN 20 mg/dL (7-18); CALCIUM 8.8 MG/DL (8.5-10.1); CARBON DIOXIDE 28 MMOL/L (21-32); CHLORIDE 108 MMOL/L (98-107); CHOLESTEROL 126 MG/DL (< 200); CREATININE 1.7 MG/DL (0.55-1.30); FERRITIN 154 NG/ML (8-388); GAMMA GLUTAMYL TRANSPEPTIDASE 17 U/L (5-85); HDL CHOLESTEROL 56 MG/DL (40-60); POTASSIUM 3.6 MMOL/L (3.5-5.1); SODIUM 145 MMOL/L (136-145)
[2018-09-15 06:09] LABS: % IRON SATURATION 24 % (15-50); IRON 59 ug/dL (50-175); TOTAL IRON BINDING CAPACITY 241 ug/dL (250-450)
[2018-09-15] MEDS: Heparin 5000 units/ml inj SUBQ SCH ×3 (06:09→21:43)
[2018-09-15 06:46] LABS: TRIGLYCERIDES 65 MG/DL (30-150)
[2018-09-15 08:00] VITALS: BP 160/80
[2018-09-15] MEDS ORDERED: Albuterol/Ipratropium 3ml neb HHN PRN (08:45)
--- NOTE | 2018-09-15 08:57 | Consultation ---
History of Present Illness General Date patient seen: Sep 15, 2018 Time patient seen: 07:45 Chief Complaint: General Complaint Referring physician: dr Coronado Reason for Consultation: COPD, abnormal CXR Present Illness HPI 88 y/old female with PMH of hypertension, hypothyroidism, hypercholesterolemia , coronary artery disease with hx of CABG, COPD, chronic kidney disease st 3, diabetes mellitus, history of CVA with right-sided hemiparesis, dementia , was sent from the custodial facility for altered mental status. No documented fever. Upon evaluation vital signs showed elevated blood pressure 218/97, no fever, pulse oximetry stable on room air. Chest x-ray revealed nonspecific bilateral interstitial prominence may be related to interstitial edema or chronic interstitial lung disease. Laboratory workup revealed no leukocytosis, anemia with hemoglobin 10.8 hematocrit 33.4. Chemistry indicated BUN 25 creatinine 1.8 Troponin elevated 0.279 . EKG revealed sinus rhythm, no acute ischemic changes. Elevated protein 9.2, glucose 117 Urine toxicology screen negative Urinalysis revealed no evidence of UTI , +4 protein. Patient admitted for further management with diagnoses of abnormal troponin, possible NSTEMI, acute on chronic renal failure, altered mental status, uncontrolled BP. Allergies: Coded Allergies: No Known Allergies (Unverified , 10/13/17) Medication History Scheduled Atorvastatin Calcium* (Atorvastatin Calcium*), 40 MG ORAL BEDTIME, (Reported) Cranberry Fruit Concentrate (Cranberry), 450 MG PO DAILY, (Reported) Docusate Sodium* (Docusate Sodium*), 100 MG ORAL DAILY, (Reported) Donepezil Hcl* (Donepezil Hcl*), 10 MG ORAL QHS, (Reported) Famotidine (Famotidine), 20 MG ORAL DAILY, (Reported) Hydralazine Hcl* (Hydralazine Hcl*), 50 MG ORAL EVERY 8 HOURS, (Reported) Levothyroxine Sodium* (Synthroid*), 150 MCG ORAL DAILY, (Reported) Omeprazole (Omeprazole), 20 MG ORAL DAILY, (Reported) Scheduled PRN Acetaminophen* (Acetaminophen 325MG Tablet*), 650 MG ORAL Q4H PRN for Mild Pain/ Temp > 100.5, (Reported) Magnesium Hydroxide* (Milk Of Magnesia*), 30 ML ORAL DAILY PRN for Constipation, (Reported) Discontinued Medications Amlodipine Besylate (Norvasc), 5 MG ORAL BID Discontinued Reason: Pt stopped taking med Amoxicillin/Potassium Clav 875-125 Mg Tab* (Amox Tr-K Clv 875-125 Mg Tab*), 875 MG ORAL EVERY 12 HOURS Discontinued Reason: Therapy completed Aspirin* (Aspirin*), 81 MG ORAL DAILY Discontinued Reason: Pt stopped taking med Docusate Sodium* (Colace*), 100 MG ORAL THREE TIMES A DAY Discontinued Reason: Medication dose changed Hydralazine Hcl* (Hydralazine Hcl*), 50 MG ORAL Q8HR Discontinued Reason: Medication dose changed Lansoprazole* (Lansoprazole*), 30 MG ORAL DAILY Discontinued Reason: MD discontinued med Levothyroxine Sodium* (Levothyroxine Sodium*), 100 MCG ORAL DAILY@0630 Discontinued Reason: Medication dose changed Metoprolol Tartrate (Metoprolol Tartrate), 25 MG ORAL Q12HR Discontinued Reason: Pt stopped taking med Patient History History Provided By: Medical Record Healthcare decision maker Resuscitation status Full Code Advanced Directive on File No Past Medical/Surgical History Past Medical/Surgical History: (1) Dementia (2) CKD (chronic kidney disease) (3) Diabetes mellitus (4) NSTEMI (non-ST elevated myocardial infarction) (5) Acute on chronic renal failure Review of Systems ROS Narrative unable to obtain due to patient's altered mental status due to dementia Physical Exam General Appearance: no apparent distress, cachetic, other - awake, responsive, elderly bedridden female, confused Lines, tubes and drains: peripheral HEENT: normocephalic, atraumatic, anicteric, mucous membranes moist, other - R sided [place] palsy Neck: supple Respiratory/Chest: lungs clear - with moderate air exchange Cardiovascular/Chest: normal rate Abdomen: normal bowel sounds, soft Skin Exam: warm/dry Neurologic: abnormal gait, other - awake, responsive, confused , hemiparesis, Musculoskeletal: atrophy - BLE Last 24 Hour Vital Signs Date Time Temp Pulse Resp B/P (MAP) Pulse Ox O2 Delivery O2 Flow Rate FiO2 09/15/18 04:00 60 09/15/18 04:00 98.2 68 16 183/89 (120) 96 09/15/18 04:00 Room Air 09/15/18 00:00 56 09/15/18 00:00 Room Air 09/15/18 00:00 98.1 58 16 156/74 (101) 94 09/14/18 21:50 97.6 65 19 178/81 97 Room Air 09/14/18 21:42 183/84 09/14/18 21:11 67 09/14/18 20:45 96.4 68 18 182/79 (113) 94 09/14/18 20:00 Room Air 09/14/18 19:50 Room Air 09/14/18 17:59 100 178/88 09/14/18 17:35 185/88 09/14/18 16:49 97.8 88 12 185/88 98 Room Air 09/14/18 16:49 88 12 Room Air 09/14/18 16:11 98.1 93 18 218/97 95 Room Air Intake and Output 09/14/18 09/15/18 19:00 07:00 Intake Total 1055 ml Output Total 1100 ml Balance -45 ml Intake Oral 0 ml IV Total 1055 ml Output Urine Total 1100 ml Laboratory Tests Test 09/14/18 16:30 09/14/18 16:48 09/14/18 18:10 09/15/18 03:20 White Blood Count 7.9 K/UL (4.8-10.8) 6.7 K/UL (4.8-10.8) Red Blood Count 4.71 M/UL (4.20-5.40) 4.43 M/UL (4.20-5.40) Hemoglobin 10.8 G/DL (12.0-16.0) L 10.0 G/DL (12.0-16.0) L Hematocrit 33.4 % (37.0-47.0) L 31.8 % (37.0-47.0) L Mean Corpuscular Volume 71 FL (80-99) L 72 FL (80-99) L Mean Corpuscular Hemoglobin 23.0 PG (27.0-31.0) L 22.6 PG (27.0-31.0) L Mean Corpuscular Hemoglobin Concent 32.5 G/DL (32.0-36.0) 31.4 G/DL (32.0-36.0) L Red Cell Distribution Width 14.3 % (11.6-14.8) 14.5 % (11.6-14.8) Platelet Count 287 K/UL (150-450) 263 K/UL (150-450) Mean Platelet Volume 7.4 FL (6.5-10.1) 7.5 FL (6.5-10.1) Neutrophils (%) (Auto) 72.6 % (45.0-75.0) 53.1 % (45.0-75.0) Lymphocytes (%) (Auto) 17.0 % (20.0-45.0) L 29.5 % (20.0-45.0) Monocytes (%) (Auto) 8.2 % (1.0-10.0) 13.7 % (1.0-10.0) H Eosinophils (%) (Auto) 0.4 % (0.0-3.0) 3.2 % (0.0-3.0) H Basophils (%) (Auto) 1.8 % (0.0-2.0) 0.7 % (0.0-2.0) Sodium Level 142 MMOL/L (136-145) 145 MMOL/L (136-145) Potassium Level 4.0 MMOL/L (3.5-5.1) 3.6 MMOL/L (3.5-5.1) Chloride Level 107 MMOL/L (98-107) 108 MMOL/L (98-107) H Carbon Dioxide Level 23 MMOL/L (21-32) 28 MMOL/L (21-32) Anion Gap 12 mmol/L (5-15) 9 mmol/L (5-15) Blood Urea Nitrogen 25 mg/dL (7-18) H 20 mg/dL (7-18) H Creatinine 1.8 MG/DL (0.55-1.30) H 1.7 MG/DL (0.55-1.30) H Estimat Glomerular Filtration Rate mL/min (>60) mL/min (>60) Glucose Level 117 MG/DL (74-106) H 79 MG/DL (74-106) Calcium Level 9.4 MG/DL (8.5-10.1) 8.8 MG/DL (8.5-10.1) Total Bilirubin 0.5 MG/DL (0.2-1.0) 0.4 MG/DL (0.2-1.0) Aspartate Amino Transf (AST/SGOT) 38 U/L (15-37) H 31 U/L (15-37) Alanine Aminotransferase (ALT/SGPT) 27 U/L (12-78) 18 U/L (12-78) Alkaline Phosphatase 110 U/L (46-116) 91 U/L (46-116) Troponin I 0.279 ng/mL (0.000-0.056) 0.376 ng/mL (0.000-0.056) C-Reactive Protein, Quantitative 3.6 mg/dL (0.00-0.90) H Pro-B-Type Natriuretic Peptide 3022 pg/mL (0-125) H 4586 pg/mL (0-125) H Total Protein 9.2 G/DL (6.4-8.2) H 8.2 G/DL (6.4-8.2) Albumin 3.6 G/DL (3.4-5.0) 3.0 G/DL (3.4-5.0) L Globulin 5.6 g/dL 5.2 g/dL Albumin/Globulin Ratio 0.6 (1.0-2.7) L 0.6 (1.0-2.7) L Thyroid Stimulating Hormone (TSH) 0.398 uiU/mL (0.358-3.740) Serum Alcohol < 3 mg/dL Lactic Acid Level 1.30 mmol/L (0.4-2.0) Urine Color Pale yellow Urine Appearance Clear Urine pH 6.5 (4.5-8.0) Urine Specific [place] 1.010 (1.005-1.035) Urine Protein 4+ (NEGATIVE) H Urine Glucose (UA) Negative (NEGATIVE) Urine Ketones Negative (NEGATIVE) Urine Blood 2+ (NEGATIVE) H Urine Nitrite Negative (NEGATIVE) Urine Bilirubin Negative (NEGATIVE) Urine Urobilinogen Normal MG/DL (0.0-1.0) Urine Leukocyte Esterase Negative (NEGATIVE) Urine RBC 2-4 /HPF (0 - 2) H Urine WBC 0-2 /HPF (0 - 2) Urine Squamous Epithelial Cells Occasional /LPF Urine Bacteria Few /HPF (NONE) Urine Opiates Screen Negative (NEGATIVE) Urine Barbiturates Screen Negative (NEGATIVE) Phencyclidine (PCP) Screen Negative (NEGATIVE) Urine Amphetamines Screen Negative (NEGATIVE) Urine Benzodiazepines Screen Negative (NEGATIVE) Urine Cocaine Screen Negative (NEGATIVE) Urine Marijuana (THC) Screen Negative (NEGATIVE) Hemoglobin A1c 6.3 % (4.3-6.0) H Uric Acid 6.6 MG/DL (2.6-7.2) Phosphorus Level 3.0 MG/DL (2.5-4.9) Magnesium Level 1.7 MG/DL (1.8-2.4) L Iron Level 59 ug/dL (50-175) Total Iron Binding Capacity 241 ug/dL (250-450) L Percent Iron Saturation 24 % (15-50) Unsaturated Iron Binding 182 ug/dL (112-346) Ferritin 154 NG/ML (8-388) Gamma Glutamyl Transpeptidase 17 U/L (5-85) Triglycerides Level 65 MG/DL (30-150) Cholesterol Level 126 MG/DL (< 200) LDL Cholesterol 66 mg/dL (<100) HDL Cholesterol 56 MG/DL (40-60) Cholesterol/HDL Ratio 2.3 (3.3-4.4) L Vitamin B12 Level 562 PG/ML (193-986) Folate 30.2 NG/ML (8.6-58.9) Microbiology Date/Time Source Procedure Growth Status 09/14/18 16:25 Rectum Received Height (Feet): 5 Height (Inches): 3.00 Weight (Pounds): 113 Medications Current Medications Medications (Trade) Dose Ordered Sig/Jennie Route PRN Reason Start Time Stop Time Status Last Admin Dose Admin Acetaminophen (Tylenol) 650 mg Q4H PRN ORAL Mild Pain/Temp > 100.5 09/14/18 18:45 10/14/18 18:44 Aspirin (ASA) 325 mg DAILY ORAL 09/15/18 09:00 10/15/18 08:59 Atorvastatin Calcium (Lipitor) 10 mg BEDTIME ORAL 09/14/18 21:00 10/14/18 20:59 Clonidine HCl (Catapres Tab) 0.1 mg Q4H PRN ORAL bp over 160 syst 09/14/18 19:00 10/14/18 18:59 Docusate Sodium (Colace) 100 mg TID ORAL 09/15/18 09:00 10/15/18 08:59 Donepezil HCl (Aricept) 10 mg QHS ORAL 09/14/18 21:00 10/14/18 20:59 Haloperidol Lactate (Haldol) 2 mg Q4H PRN IM Agitation 09/14/18 19:00 10/14/18 18:59 Heparin Sodium (Porcine) (Heparin 5000 units/ml) 5,000 units EVERY 8 HOURS SUBQ 09/14/18 22:00 10/14/18 21:59 09/15/18 06:09 Hydralazine HCl (Apresoline) 50 mg EVERY 8 HOURS ORAL 09/14/18 22:00 10/14/18 21:59 Levothyroxine Sodium (Synthroid) 50 mcg DAILY ORAL 09/15/18 09:00 10/15/18 08:59 Lorazepam (Ativan 2mg/ml 1ml) 1 mg Q4H PRN IV agitation 09/14/18 19:15 09/21/18 19:14 Mirtazapine (Remeron) 15 mg BEDTIME ORAL 09/14/18 21:00 10/14/18 20:59 Nitroglycerin (Ntg) 1 patch Q24H TDERMAL 09/14/18 21:00 10/14/18 20:59 09/14/18 21:42 Pantoprazole (Protonix) 40 mg Q12HR ORAL 09/14/18 21:00 10/14/18 20:59 Assessment/Plan Assessment/Plan ASSESSMENT elevated troponin possible NSTEMI hypertensive urgency altered mental status likely due to acute metabolic encephalopathy CKD st 3 with +4 proteinuria COPD CAD with hx of CABG elevated pro BNP , possible CHF history of CVA with right-sided hemiparesis DM anemia PLAN of CARE SOLO status Serial troponin , second troponin this am elevated as well EKG now consider a/coagulation with Lovenox , however pt denies any chest pain, SOB, dizziness , but demented, appearance though non toxic cardio eval- per PMD check ECHO ( prior ECHO with pEF) a/PLT therapy with ASA, add BB, Nitro prn continue statin , check lipid panel BP management with hydralazine and BB, and optimize further as needed O2 titrate prn, HHN as needed no evidence of COPD exacerbation fup with CXR monitor renal parameters, lytes, correct as needed , avoid nephrotoxic prior renal US revealed small kidneys, c/w chronic renal disease pain management DVT GI prophylaxis resume home meds anemia w/up c/w anemia of chronic disease monitor HH with goal to keep Hgb above 7 BS management as per PMD case discussed and evaluated by supervising physician Maria Esther Hernandez PANEL BEATER Sep 15, 2018 08:56
[2018-09-15] MEDS ORDERED: Docusate 100mg cap ORAL SCH (09:00)
[2018-09-15] MEDS ORDERED: Metoprolol 25mg tab ORAL SCH (09:00)
[2018-09-15 09:42] LABS: BASOPHILS % (AUTO) 1.5 % (0.0-2.0); EOSINOPHILS % (AUTO) 3.8 % (0.0-3.0); HEMATOCRIT 33.3 % (37.0-47.0); HEMOGLOBIN 10.5 G/DL (12.0-16.0); LYMPHOCYTES % (AUTO) 28.2 % (20.0-45.0); MEAN CORPUSCULAR VOLUME 72 FL (80-99); MONOCYTES % (AUTO) 11.1 % (1.0-10.0); NEUTROPHILS % (AUTO) 55.4 % (45.0-75.0); PLATELET COUNT 276 K/UL (150-450); RED BLOOD COUNT 4.64 M/UL (4.20-5.40); RED CELL DISTRIBUTION WIDTH 14.7 % (11.6-14.8); WHITE BLOOD COUNT 6.8 K/UL (4.8-10.8)
[2018-09-15] MEDS: Docusate 100mg cap ORAL SCH ×3 (09:42→18:04)
[2018-09-15 09:58] LABS: ANION GAP 9 mmol/L (5-15); BLOOD UREA NITROGEN 18 mg/dL (7-18); CALCIUM 9.1 MG/DL (8.5-10.1); CARBON DIOXIDE 29 MMOL/L (21-32); CHLORIDE 107 MMOL/L (98-107); CREATININE 1.6 MG/DL (0.55-1.30); POTASSIUM 3.6 MMOL/L (3.5-5.1); SODIUM 144 MMOL/L (136-145)
[2018-09-15] MEDS ORDERED: HydrALAZINE 25mg tab ORAL PRN (10:15)
[2018-09-15 12:00] VITALS: BP 158/79
--- NOTE | 2018-09-15 14:23 | Cardiology Progress Note ---
Assessment/Plan Assessment/Plan no typica;l peak nor steph to suggest acs but will follow has sing lvh needs abd u/s to evlaute the status of her AAA and may cosnder ct on the danuta to evaluate the status fo her thoraci aorit aneurysm has cad with cabg remotely in either case will need to be treated conservatively [id number] Objective Last 24 Hour Vital Signs Date Time Temp Pulse Resp B/P (MAP) Pulse Ox O2 Delivery O2 Flow Rate FiO2 09/15/18 13:31 158/79 09/15/18 12:00 52 09/15/18 10:26 63 159/80 09/15/18 09:41 65 160/80 09/15/18 08:00 Room Air 09/15/18 08:00 97.0 65 16 160/80 (106) 99 09/15/18 08:00 57 09/15/18 04:00 60 09/15/18 04:00 98.2 68 16 183/89 (120) 96 09/15/18 04:00 Room Air 09/15/18 00:00 56 09/15/18 00:00 Room Air 09/15/18 00:00 98.1 58 16 156/74 (101) 94 09/14/18 21:50 97.6 65 19 178/81 97 Room Air 09/14/18 21:42 183/84 09/14/18 21:11 67 09/14/18 20:45 96.4 68 18 182/79 (113) 94 09/14/18 20:00 Room Air 09/14/18 19:50 Room Air 09/14/18 17:59 100 178/88 09/14/18 17:35 185/88 09/14/18 16:49 97.8 88 12 185/88 98 Room Air 09/14/18 16:49 88 12 Room Air 09/14/18 16:11 98.1 93 18 218/97 95 Room Air Intake and Output 09/14/18 09/15/18 18:59 06:59 Intake Total 1055 ml Output Total 1100 ml Balance -45 ml Intake Oral 0 ml IV Total 1055 ml Output Urine Total 1100 ml Laboratory Tests Test 09/14/18 16:30 09/14/18 16:48 09/14/18 18:10 09/15/18 03:20 White Blood Count 7.9 K/UL (4.8-10.8) 6.7 K/UL (4.8-10.8) Red Blood Count 4.71 M/UL (4.20-5.40) 4.43 M/UL (4.20-5.40) Hemoglobin 10.8 G/DL (12.0-16.0) L 10.0 G/DL (12.0-16.0) L Hematocrit 33.4 % (37.0-47.0) L 31.8 % (37.0-47.0) L Mean Corpuscular Volume 71 FL (80-99) L 72 FL (80-99) L Mean Corpuscular Hemoglobin 23.0 PG (27.0-31.0) L 22.6 PG (27.0-31.0) L Mean Corpuscular Hemoglobin Concent 32.5 G/DL (32.0-36.0) 31.4 G/DL (32.0-36.0) L Red Cell Distribution Width 14.3 % (11.6-14.8) 14.5 % (11.6-14.8) Platelet Count 287 K/UL (150-450) 263 K/UL (150-450) Mean Platelet Volume 7.4 FL (6.5-10.1) 7.5 FL (6.5-10.1) Neutrophils (%) (Auto) 72.6 % (45.0-75.0) 53.1 % (45.0-75.0) Lymphocytes (%) (Auto) 17.0 % (20.0-45.0) L 29.5 % (20.0-45.0) Monocytes (%) (Auto) 8.2 % (1.0-10.0) 13.7 % (1.0-10.0) H Eosinophils (%) (Auto) 0.4 % (0.0-3.0) 3.2 % (0.0-3.0) H Basophils (%) (Auto) 1.8 % (0.0-2.0) 0.7 % (0.0-2.0) Sodium Level 142 MMOL/L (136-145) 145 MMOL/L (136-145) Potassium Level 4.0 MMOL/L (3.5-5.1) 3.6 MMOL/L (3.5-5.1) Chloride Level 107 MMOL/L (98-107) 108 MMOL/L (98-107) H Carbon Dioxide Level 23 MMOL/L (21-32) 28 MMOL/L (21-32) Anion Gap 12 mmol/L (5-15) 9 mmol/L (5-15) Blood Urea Nitrogen 25 mg/dL (7-18) H 20 mg/dL (7-18) H Creatinine 1.8 MG/DL (0.55-1.30) H 1.7 MG/DL (0.55-1.30) H Estimat Glomerular Filtration Rate mL/min (>60) mL/min (>60) Glucose Level 117 MG/DL (74-106) H 79 MG/DL (74-106) Calcium Level 9.4 MG/DL (8.5-10.1) 8.8 MG/DL (8.5-10.1) Total Bilirubin 0.5 MG/DL (0.2-1.0) 0.4 MG/DL (0.2-1.0) Aspartate Amino Transf (AST/SGOT) 38 U/L (15-37) H 31 U/L (15-37) Alanine Aminotransferase (ALT/SGPT) 27 U/L (12-78) 18 U/L (12-78) Alkaline Phosphatase 110 U/L (46-116) 91 U/L (46-116) Troponin I 0.279 ng/mL (0.000-0.056) 0.376 ng/mL (0.000-0.056) C-Reactive Protein, Quantitative 3.6 mg/dL (0.00-0.90) H Pro-B-Type Natriuretic Peptide 3022 pg/mL (0-125) H 4586 pg/mL (0-125) H Total Protein 9.2 G/DL (6.4-8.2) H 8.2 G/DL (6.4-8.2) Albumin 3.6 G/DL (3.4-5.0) 3.0 G/DL (3.4-5.0) L Globulin 5.6 g/dL 5.2 g/dL Albumin/Globulin Ratio 0.6 (1.0-2.7) L 0.6 (1.0-2.7) L Thyroid Stimulating Hormone (TSH) 0.398 uiU/mL (0.358-3.740) Serum Alcohol < 3 mg/dL Lactic Acid Level 1.30 mmol/L (0.4-2.0) Urine Color Pale yellow Urine Appearance Clear Urine pH 6.5 (4.5-8.0) Urine Specific [place] 1.010 (1.005-1.035) Urine Protein 4+ (NEGATIVE) H Urine Glucose (UA) Negative (NEGATIVE) Urine Ketones Negative (NEGATIVE) Urine Blood 2+ (NEGATIVE) H Urine Nitrite Negative (NEGATIVE) Urine Bilirubin Negative (NEGATIVE) Urine Urobilinogen Normal MG/DL (0.0-1.0) Urine Leukocyte Esterase Negative (NEGATIVE) Urine RBC 2-4 /HPF (0 - 2) H Urine WBC 0-2 /HPF (0 - 2) Urine Squamous Epithelial Cells Occasional /LPF Urine Bacteria Few /HPF (NONE) Urine Opiates Screen Negative (NEGATIVE) Urine Barbiturates Screen Negative (NEGATIVE) Phencyclidine (PCP) Screen Negative (NEGATIVE) Urine Amphetamines Screen Negative (NEGATIVE) Urine Benzodiazepines Screen Negative (NEGATIVE) Urine Cocaine Screen Negative (NEGATIVE) Urine Marijuana (THC) Screen Negative (NEGATIVE) Hemoglobin A1c 6.3 % (4.3-6.0) H Uric Acid 6.6 MG/DL (2.6-7.2) Phosphorus Level 3.0 MG/DL (2.5-4.9) Magnesium Level 1.7 MG/DL (1.8-2.4) L Iron Level 59 ug/dL (50-175) Total Iron Binding Capacity 241 ug/dL (250-450) L Percent Iron Saturation 24 % (15-50) Unsaturated Iron Binding 182 ug/dL (112-346) Ferritin 154 NG/ML (8-388) Gamma Glutamyl Transpeptidase 17 U/L (5-85) Triglycerides Level 65 MG/DL (30-150) Cholesterol Level 126 MG/DL (< 200) LDL Cholesterol 66 mg/dL (<100) HDL Cholesterol 56 MG/DL (40-60) Cholesterol/HDL Ratio 2.3 (3.3-4.4) L Vitamin B12 Level 562 PG/ML (193-986) Folate 30.2 NG/ML (8.6-58.9) Test 09/15/18 09:00 White Blood Count 6.8 K/UL (4.8-10.8) Red Blood Count 4.64 M/UL (4.20-5.40) Hemoglobin 10.5 G/DL (12.0-16.0) L Hematocrit 33.3 % (37.0-47.0) L Mean Corpuscular Volume 72 FL (80-99) L Mean Corpuscular Hemoglobin 22.6 PG (27.0-31.0) L Mean Corpuscular Hemoglobin Concent 31.5 G/DL (32.0-36.0) L Red Cell Distribution Width 14.7 % (11.6-14.8) Platelet Count 276 K/UL (150-450) Mean Platelet Volume 7.2 FL (6.5-10.1) Neutrophils (%) (Auto) 55.4 % (45.0-75.0) Lymphocytes (%) (Auto) 28.2 % (20.0-45.0) Monocytes (%) (Auto) 11.1 % (1.0-10.0) H Eosinophils (%) (Auto) 3.8 % (0.0-3.0) H Basophils (%) (Auto) 1.5 % (0.0-2.0) Sodium Level 144 MMOL/L (136-145) Potassium Level 3.6 MMOL/L (3.5-5.1) Chloride Level 107 MMOL/L (98-107) Carbon Dioxide Level 29 MMOL/L (21-32) Anion Gap 9 mmol/L (5-15) Blood Urea Nitrogen 18 mg/dL (7-18) Creatinine 1.6 MG/DL (0.55-1.30) H Estimat Glomerular Filtration Rate mL/min (>60) Glucose Level 88 MG/DL (74-106) Calcium Level 9.1 MG/DL (8.5-10.1) Troponin I 0.323 ng/mL (0.000-0.056) Microbiology Date/Time Source Procedure Growth Status 09/14/18 16:25 Rectum Received Doe Short MD Sep 15, 2018 14:23
--- NOTE | 2018-09-15 15:21 | General Progress Note ---
Assessment/Plan Problem List: (1) Acute on chronic renal failure Assessment & Plan: with proteinuria ICD Codes: N17.9 - Acute kidney failure, unspecified; N18.9 - Chronic kidney disease, unspecified SNOMED: 528878801, 158705705 Qualifiers: Qualified Codes: N17.9 - Acute kidney failure, unspecified; N18.3 - Chronic kidney disease, stage 3 (moderate) (2) NSTEMI (non-ST elevation myocardial infarction) Assessment & Plan: possible- previous cabbage ICD Codes: I21.4 - Non-ST elevation (NSTEMI) myocardial infarction SNOMED: 928424187 (3) Hypertensive urgency ICD Codes: I16.0 - Hypertensive urgency SNOMED: 537905014 (4) Dementia ICD Codes: F03.90 - Unspecified dementia without behavioral disturbance SNOMED: 85640267 Qualifiers: Qualified Codes: F03.91 - Unspecified dementia with behavioral disturbance (5) Anemia ICD Codes: D64.9 - Anemia, unspecified SNOMED: 816677089 (6) Diabetes mellitus ICD Codes: E11.9 - Type 2 diabetes mellitus without complications SNOMED: 67070461 (7) UTI (urinary tract infection) ICD Codes: N39.0 - Urinary tract infection, site not specified SNOMED: 15863952 Status: stable Assessment/Plan cardiac eval pulm eval nitro , beta ryan asa rocephin Subjective ROS Limited/Unobtainable: No Constitutional: Reports: malaise, weakness Allergies: Coded Allergies: No Known Allergies (Unverified , 10/13/17) Objective Last 24 Hour Vital Signs Date Time Temp Pulse Resp B/P (MAP) Pulse Ox O2 Delivery O2 Flow Rate FiO2 09/15/18 13:31 158/79 09/15/18 12:00 52 09/15/18 10:26 63 159/80 09/15/18 09:41 65 160/80 09/15/18 08:00 Room Air 09/15/18 08:00 97.0 65 16 160/80 (106) 99 09/15/18 08:00 57 09/15/18 04:00 60 09/15/18 04:00 98.2 68 16 183/89 (120) 96 09/15/18 04:00 Room Air 09/15/18 00:00 56 09/15/18 00:00 Room Air 09/15/18 00:00 98.1 58 16 156/74 (101) 94 09/14/18 21:50 97.6 65 19 178/81 97 Room Air 09/14/18 21:42 183/84 09/14/18 21:11 67 09/14/18 20:45 96.4 68 18 182/79 (113) 94 09/14/18 20:00 Room Air 09/14/18 19:50 Room Air 09/14/18 17:59 100 178/88 09/14/18 17:35 185/88 09/14/18 16:49 97.8 88 12 185/88 98 Room Air 09/14/18 16:49 88 12 Room Air 09/14/18 16:11 98.1 93 18 218/97 95 Room Air Intake and Output 09/14/18 09/15/18 18:59 06:59 Intake Total 1055 ml Output Total 1100 ml Balance -45 ml Intake Oral 0 ml IV Total 1055 ml Output Urine Total 1100 ml Laboratory Tests 09/14/18 16:30: White Blood Count 7.9, Red Blood Count 4.71, Hemoglobin 10.8L, Hematocrit 33.4L , Mean Corpuscular Volume 71L, Mean Corpuscular Hemoglobin 23.0L, Mean Corpuscular Hemoglobin Concent 32.5, Red Cell Distribution Width 14.3, Platelet Count 287, Mean Platelet Volume 7.4, Neutrophils (%) (Auto) 72.6, Lymphocytes (% ) (Auto) 17.0L, Monocytes (%) (Auto) 8.2, Eosinophils (%) (Auto) 0.4, Basophils (%) (Auto) 1.8, Sodium Level 142, Potassium Level 4.0, Chloride Level 107, Carbon Dioxide Level 23, Anion Gap 12, Blood Urea Nitrogen 25H, Creatinine 1.8H , Estimat Glomerular Filtration Rate , Glucose Level 117H, Calcium Level 9.4, Total Bilirubin 0.5, Aspartate Amino Transf (AST/SGOT) 38H, Alanine Aminotransferase (ALT/SGPT) 27, Alkaline Phosphatase 110, Troponin I 0.279H, C- Reactive Protein, Quantitative 3.6H, Pro-B-Type Natriuretic Peptide 3022H, Total Protein 9.2H, Albumin 3.6, Globulin 5.6, Albumin/Globulin Ratio 0.6L, Thyroid Stimulating Hormone (TSH) 0.398, Serum Alcohol < 3 09/14/18 16:48: Lactic Acid Level 1.30 09/14/18 18:10: Urine Color Pale yellow, Urine Appearance Clear, Urine pH 6.5, Urine Specific [place] 1.010, Urine Protein 4+H, Urine Glucose (UA) Negative, Urine Ketones Negative, Urine Blood 2+H, Urine Nitrite Negative, Urine Bilirubin Negative, Urine Urobilinogen Normal, Urine Leukocyte Esterase Negative, Urine RBC 2-4H, Urine WBC 0-2, Urine Squamous Epithelial Cells Occasional, Urine Bacteria Few, Urine Opiates Screen Negative, Urine Barbiturates Screen Negative, Phencyclidine (PCP) Screen Negative, Urine Amphetamines Screen Negative, Urine Benzodiazepines Screen Negative, Urine Cocaine Screen Negative, Urine Marijuana (THC) Screen Negative 09/15/18 03:20: White Blood Count 6.7, Red Blood Count 4.43, Hemoglobin 10.0L, Hematocrit 31.8L , Mean Corpuscular Volume 72L, Mean Corpuscular Hemoglobin 22.6L, Mean Corpuscular Hemoglobin Concent 31.4L, Red Cell Distribution Width 14.5, Platelet Count 263, Mean Platelet Volume 7.5, Neutrophils (%) (Auto) 53.1, Lymphocytes (%) (Auto) 29.5, Monocytes (%) (Auto) 13.7H, Eosinophils (%) (Auto) 3.2H, Basophils (%) (Auto) 0.7, Sodium Level 145, Potassium Level 3.6, Chloride Level 108H, Carbon Dioxide Level 28, Anion Gap 9, Blood Urea Nitrogen 20H, Creatinine 1.7H, Estimat Glomerular Filtration Rate , Glucose Level 79, Calcium Level 8.8, Total Bilirubin 0.4, Aspartate Amino Transf (AST/SGOT) 31, Alanine Aminotransferase (ALT/SGPT) 18, Alkaline Phosphatase 91, Troponin I 0.376H, Pro- B-Type Natriuretic Peptide 4586H, Total Protein 8.2, Albumin 3.0L, Globulin 5.2 , Albumin/Globulin Ratio 0.6L, Hemoglobin A1c 6.3H, Uric Acid 6.6, Phosphorus Level 3.0, Magnesium Level 1.7L, Iron Level 59, Total Iron Binding Capacity 241L , Percent Iron Saturation 24, Unsaturated Iron Binding 182, Ferritin 154, Gamma Glutamyl Transpeptidase 17, Triglycerides Level 65, Cholesterol Level 126, LDL Cholesterol 66, HDL Cholesterol 56, Cholesterol/HDL Ratio 2.3L, Vitamin B12 Level 562, Folate 30.2 09/15/18 09:00: White Blood Count 6.8, Red Blood Count 4.64, Hemoglobin 10.5L, Hematocrit 33.3L , Mean Corpuscular Volume 72L, Mean Corpuscular Hemoglobin 22.6L, Mean Corpuscular Hemoglobin Concent 31.5L, Red Cell Distribution Width 14.7, Platelet Count 276, Mean Platelet Volume 7.2, Neutrophils (%) (Auto) 55.4, Lymphocytes (%) (Auto) 28.2, Monocytes (%) (Auto) 11.1H, Eosinophils (%) (Auto) 3.8H, Basophils (%) (Auto) 1.5, Sodium Level 144, Potassium Level 3.6, Chloride Level 107, Carbon Dioxide Level 29, Anion Gap 9, Blood Urea Nitrogen 18, Creatinine 1.6H, Estimat Glomerular Filtration Rate , Glucose Level 88, Calcium Level 9.1, Troponin I 0.323H Height (Feet): 5 Height (Inches): 3.00 Weight (Pounds): 113 General Appearance: no apparent distress, lethargic Cardiovascular: normal rate, bradycardia Respiratory/Chest: decreased breath sounds Abdomen: soft, distended Suresh Coronado MD Sep 15, 2018 15:21
[2018-09-15] MEDS ORDERED: D5W 275ml ONE (15:47)
[2018-09-15 16:00] VITALS: BP 135/63
[2018-09-15 20:00] VITALS: BP 144/72
--- NOTE | 2018-09-15 20:45 | History and Physical Report ---
DATE OF ADMISSION: 09/14/2018 HISTORY OF PRESENT ILLNESS: The patient who is an 88-year-old female, a long term resident, was originally transferred to the emergency room for evaluation of her altered level of consciousness and increased confusion. The patient is a poor historian. PAST MEDICAL HISTORY: Significant for CVA, hypothyroidism, hyperlipidemia, CKD, coronary artery disease, previous coronary artery bypass surgery, dementia, hypertension, diabetes mellitus, and COPD. ALLERGIES: Not known. After initial evaluation, the patient was found some abnormalities, but no definite diagnosis. We justified admitting to a monitored bed for further evaluation. PHYSICAL EXAMINATION: VITAL SIGNS: This morning when seen the patient, the patient's blood pressure 158/79, pulse rate 52 to 65, the patient afebrile, calm, poor historian, confused. HEENT: Head, normocephalic. Face is pale. CHEST: Scar on mid chest. HEART: Regular, bradycardic. LUNGS: Decreased breath sound over the bases. ABDOMEN: Multiple scars of the previous surgery, however, abdomen soft. EXTREMITIES: Lower extremities, no edema. NEUROLOGIC: Right face paralysis. LABORATORY DATA: Laboratory results initially was suggesting of creatinine of 1.8, troponin of 0.279, pro-natriuretic peptic acid of over 3000, C-reactive protein of 3.6, and urine 4 rbcs, 2 wbcs, and 4+ protein. The serum albumin was noted to be 3.6. IMPRESSION: 1. The patient admitted with a diagnosis of acute renal failure superimposed on chronic renal insufficiency. 2. Also non-STEMI. 3. Hypertensive urgency. 4. Dementia. 5. Anemia. 6. Diabetes mellitus. 7. Possible urinary tract infection. PLAN: The patient will receive breathing treatment. Serial troponin I, aspirin, beta-ryan, and nitrates. Blood pressure and blood sugar check. Gastric support and p.r.n. Haldol for agitation. According to how the patient's condition evolves, we will make proper changes in our future management. Suresh Coronado M.D. DR: FREDY JOB#: [id number] CC:
[2018-09-15] MEDS ORDERED: Metoprolol Tartrate 12.5mg TAB ORAL SCH (21:00)
[2018-09-15] MEDS: Donepezil 10mg tab ORAL SCH (21:41)
[2018-09-15] MEDS: HydrALAZINE 25mg tab ORAL SCH (21:42)
[2018-09-15] MEDS: Nitroglycerin Patch 0.4mg TDERMAL SCH (21:42)
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
[2018-09-16] VITALS: BP 135/50
[2018-09-16 04:00] VITALS: BP 143/66
[2018-09-16 04:34] LABS: BASOPHILS % (AUTO) 0.9 % (0.0-2.0); EOSINOPHILS % (AUTO) 1.2 % (0.0-3.0); HEMATOCRIT 29.9 % (37.0-47.0); HEMOGLOBIN 9.5 G/DL (12.0-16.0); LYMPHOCYTES % (AUTO) 14.9 % (20.0-45.0); MEAN CORPUSCULAR VOLUME 72 FL (80-99); MONOCYTES % (AUTO) 6.4 % (1.0-10.0); NEUTROPHILS % (AUTO) 76.6 % (45.0-75.0); PLATELET COUNT 271 K/UL (150-450); RED BLOOD COUNT 4.17 M/UL (4.20-5.40); RED CELL DISTRIBUTION WIDTH 14.5 % (11.6-14.8)
[2018-09-16 04:57] LABS: ANION GAP 11 mmol/L (5-15); BLOOD UREA NITROGEN 19 mg/dL (7-18); CALCIUM 8.4 MG/DL (8.5-10.1); CARBON DIOXIDE 24 MMOL/L (21-32); CHLORIDE 107 MMOL/L (98-107); CREATININE 1.7 MG/DL (0.55-1.30); POTASSIUM 3.3 MMOL/L (3.5-5.1); SODIUM 142 MMOL/L (136-145)
[2018-09-16] MEDS: HydrALAZINE 25mg tab ORAL SCH (06:00)
[2018-09-16] MEDS: Heparin 5000 units/ml inj SUBQ SCH ×3 (06:14→21:21)
[2018-09-16 08:00] VITALS: BP 159/71
[2018-09-16] MEDS ORDERED: cefTRIAXone 1 GM in D5W 55 ML IVPB SCH (09:00)
[2018-09-16 09:09] LABS: BILIRUBIN, URINE NEGATIVE (NEGATIVE); COLOR,URINE PALE YELLOW; GLUCOSE, URINE (UA) NEGATIVE (NEGATIVE); KETONES,URINE NEGATIVE (NEGATIVE); LEUKOCYTE ESTERASE ,URINE 1+ (NEGATIVE); NITRITE,URINE NEGATIVE (NEGATIVE); PH,URINE 6 (4.5-8.0); PROTEIN,URINE 3+ (NEGATIVE); UROBILINOGEN,URINE NORMAL MG/DL (0.0-1.0)
[2018-09-16 09:11] LABS: APPEARANCE,URINE SLIGHTLY CLOUDY
[2018-09-16] MEDS: Docusate 100mg cap ORAL SCH ×3 (09:28→17:56)
[2018-09-16 12:00] VITALS: BP 185/73
--- NOTE | 2018-09-16 12:23 | General Progress Note ---
Assessment/Plan Problem List: (1) Acute on chronic renal failure Assessment & Plan: with proteinuria ICD Codes: N17.9 - Acute kidney failure, unspecified; N18.9 - Chronic kidney disease, unspecified SNOMED: 050005938, 823660654 Qualifiers: Qualified Codes: N17.9 - Acute kidney failure, unspecified; N18.3 - Chronic kidney disease, stage 3 (moderate) (2) NSTEMI (non-ST elevation myocardial infarction) Assessment & Plan: possible- previous cabbage ICD Codes: I21.4 - Non-ST elevation (NSTEMI) myocardial infarction SNOMED: 834873444 (3) Hypertensive urgency ICD Codes: I16.0 - Hypertensive urgency SNOMED: 886326902 (4) Dementia Assessment & Plan: with acute encephalopathy ICD Codes: F03.90 - Unspecified dementia without behavioral disturbance SNOMED: 26100891 Qualifiers: Qualified Codes: F03.91 - Unspecified dementia with behavioral disturbance (5) Anemia ICD Codes: D64.9 - Anemia, unspecified SNOMED: 625819884 (6) Diabetes mellitus ICD Codes: E11.9 - Type 2 diabetes mellitus without complications SNOMED: 09634389 (7) UTI (urinary tract infection) ICD Codes: N39.0 - Urinary tract infection, site not specified SNOMED: 90057427 Status: unchanged Assessment/Plan cardiac eval pulm eval nitro , beta ryan asa rocephin add seroquel Subjective ROS Limited/Unobtainable: No Constitutional: Reports: malaise Allergies: Coded Allergies: No Known Allergies (Unverified , 10/13/17) Objective Last 24 Hour Vital Signs Date Time Temp Pulse Resp B/P (MAP) Pulse Ox O2 Delivery O2 Flow Rate FiO2 09/16/18 09:28 58 159/71 09/16/18 08:00 97.2 58 16 159/71 (100) 100 09/16/18 08:00 Room Air 09/16/18 07:45 48 09/16/18 06:00 135/50 09/16/18 04:00 Room Air 09/16/18 04:00 97.0 52 16 143/66 (91) 99 09/16/18 03:35 52 09/16/18 00:00 97.4 61 16 135/50 (78) 96 09/16/18 00:00 Room Air 09/15/18 23:50 55 09/15/18 21:42 144/72 09/15/18 21:42 144/72 09/15/18 21:41 79 144/72 09/15/18 20:00 97.2 79 18 144/72 (96) 98 09/15/18 20:00 Room Air 09/15/18 20:00 62 16 Room Air 21 09/15/18 16:00 97.5 60 20 135/63 (87) 98 09/15/18 16:00 60 09/15/18 16:00 Room Air 09/15/18 13:31 158/79 Intake and Output 09/15/18 09/16/18 19:00 07:00 Intake Total 450 ml 0 ml Output Total 400 ml 250 ml Balance 50 ml -250 ml Intake Oral 450 ml 0 ml Output Urine Total 400 ml 250 ml # Bowel Movements 2 Laboratory Tests 09/16/18 03:15: White Blood Count 8.0, Red Blood Count 4.17L, Hemoglobin 9.5L, Hematocrit 29.9L , Mean Corpuscular Volume 72L, Mean Corpuscular Hemoglobin 22.8L, Mean Corpuscular Hemoglobin Concent 31.7L, Red Cell Distribution Width 14.5, Platelet Count 271, Mean Platelet Volume 7.9, Neutrophils (%) (Auto) 76.6H, Lymphocytes (%) (Auto) 14.9L, Monocytes (%) (Auto) 6.4, Eosinophils (%) (Auto) 1.2, Basophils (%) (Auto) 0.9, Sodium Level 142, Potassium Level 3.3L, Chloride Level 107, Carbon Dioxide Level 24, Anion Gap 11, Blood Urea Nitrogen 19H, Creatinine 1.7H, Estimat Glomerular Filtration Rate , Glucose Level 114H, Calcium Level 8.4L, Troponin I 0.206H 09/16/18 08:00: Urine Color Pale yellow, Urine Appearance Slightly cloudy, Urine pH 6, Urine Specific [place] 1.010, Urine Protein 3+H, Urine Glucose (UA) Negative, Urine Ketones Negative, Urine Blood 2+H, Urine Nitrite Negative, Urine Bilirubin Negative, Urine Urobilinogen Normal, Urine Leukocyte Esterase 1+H, Urine RBC 20- 30H, Urine WBC 5-10H, Urine Squamous Epithelial Cells ModerateH, Urine Bacteria ManyH Height (Feet): 5 Height (Inches): 3.00 Weight (Pounds): 113 Suresh Coronado MD Sep 16, 2018 12:23
[2018-09-16] MEDS: HydrALAZINE 50mg tab ORAL SCH ×2 (12:29→17:56)
--- NOTE | 2018-09-16 12:46 | Pulmonology Progress Note ---
Assessment/Plan Problems: (1) NSTEMI (non-ST elevated myocardial infarction) (2) Anemia (3) Diabetes mellitus (4) Dementia Assessment/Plan symptomatic treatment f/u cardiology recommendations titrate fio2 to sat of 92% anemia w/u respiratory treatment dvt prophylaxis aspiration precaution. consider DNR and comfort care if ok with family members. Subjective ROS Limited/Unobtainable: No Constitutional: Reports: no symptoms HEENT: Repors: no symptoms Respiratory: Reports: no symptoms Allergies: Coded Allergies: No Known Allergies (Unverified , 10/13/17) Objective Last 24 Hour Vital Signs Date Time Temp Pulse Resp B/P (MAP) Pulse Ox O2 Delivery O2 Flow Rate FiO2 09/16/18 12:29 185/73 09/16/18 12:00 97.5 58 16 185/73 (110) 100 09/16/18 09:28 58 159/71 09/16/18 08:00 97.2 58 16 159/71 (100) 100 09/16/18 08:00 Room Air 09/16/18 07:45 48 09/16/18 06:00 135/50 09/16/18 04:00 Room Air 09/16/18 04:00 97.0 52 16 143/66 (91) 99 09/16/18 03:35 52 09/16/18 00:00 97.4 61 16 135/50 (78) 96 09/16/18 00:00 Room Air 09/15/18 23:50 55 09/15/18 21:42 144/72 09/15/18 21:42 144/72 09/15/18 21:41 79 144/72 09/15/18 20:00 97.2 79 18 144/72 (96) 98 09/15/18 20:00 Room Air 09/15/18 20:00 62 16 Room Air 21 09/15/18 16:00 97.5 60 20 135/63 (87) 98 09/15/18 16:00 60 09/15/18 16:00 Room Air 09/15/18 13:31 158/79 Intake and Output 09/15/18 09/16/18 18:59 06:59 Intake Total 450 ml 0 ml Output Total 400 ml 250 ml Balance 50 ml -250 ml Intake Oral 450 ml 0 ml Output Urine Total 400 ml 250 ml # Bowel Movements 2 General Appearance: WD/WN HEENT: normocephalic, atraumatic Respiratory/Chest: chest wall non-tender, lungs clear Breasts: no masses Cardiovascular: normal peripheral pulses, normal rate Abdomen: normal bowel sounds, soft, non tender Genitourinary: normal external genitalia Extremities: no cyanosis Skin: no rash Microbiology Date/Time Source Procedure Growth Status 09/14/18 16:25 Rectum Received Laboratory Tests 09/16/18 03:15: White Blood Count 8.0, Red Blood Count 4.17L, Hemoglobin 9.5L, Hematocrit 29.9L , Mean Corpuscular Volume 72L, Mean Corpuscular Hemoglobin 22.8L, Mean Corpuscular Hemoglobin Concent 31.7L, Red Cell Distribution Width 14.5, Platelet Count 271, Mean Platelet Volume 7.9, Neutrophils (%) (Auto) 76.6H, Lymphocytes (%) (Auto) 14.9L, Monocytes (%) (Auto) 6.4, Eosinophils (%) (Auto) 1.2, Basophils (%) (Auto) 0.9, Sodium Level 142, Potassium Level 3.3L, Chloride Level 107, Carbon Dioxide Level 24, Anion Gap 11, Blood Urea Nitrogen 19H, Creatinine 1.7H, Estimat Glomerular Filtration Rate , Glucose Level 114H, Calcium Level 8.4L, Troponin I 0.206H 09/16/18 08:00: Urine Color Pale yellow, Urine Appearance Slightly cloudy, Urine pH 6, Urine Specific [place] 1.010, Urine Protein 3+H, Urine Glucose (UA) Negative, Urine Ketones Negative, Urine Blood 2+H, Urine Nitrite Negative, Urine Bilirubin Negative, Urine Urobilinogen Normal, Urine Leukocyte Esterase 1+H, Urine RBC 20- 30H, Urine WBC 5-10H, Urine Squamous Epithelial Cells ModerateH, Urine Bacteria ManyH Current Medications Medications (Trade) Dose Ordered Sig/Jennie Route PRN Reason Start Time Stop Time Status Last Admin Dose Admin Acetaminophen (Tylenol) 650 mg Q4H PRN ORAL Mild Pain/Temp > 100.5 09/14/18 18:45 10/14/18 18:44 Albuterol/ Ipratropium (Albuterol/ Ipratropium) 3 ml Q4H PRN HHN sob 09/15/18 08:45 09/20/18 08:44 Amlodipine Besylate (Norvasc) 5 mg DAILY ORAL 09/16/18 09:00 10/16/18 08:59 09/16/18 09:28 Aspirin (ASA) 325 mg DAILY ORAL 09/15/18 09:00 10/15/18 08:59 09/16/18 09:27 Atorvastatin Calcium (Lipitor) 10 mg BEDTIME ORAL 09/14/18 21:00 10/14/18 20:59 09/15/18 21:41 Docusate Sodium (Colace) 100 mg TID ORAL 09/15/18 09:00 10/15/18 08:59 09/16/18 12:30 Heparin Sodium (Porcine) (Heparin 5000 units/ml) 5,000 units EVERY 8 HOURS SUBQ 09/14/18 22:00 10/14/18 21:59 09/16/18 06:14 Hydralazine HCl (Apresoline) 25 mg Q4H PRN ORAL bp over 160 syst 09/15/18 10:15 10/15/18 10:14 Hydralazine HCl (Apresoline) 50 mg Q6HR ORAL 09/16/18 12:00 10/16/18 11:59 09/16/18 12:29 Isosorbide Mononitrate (Imdur) 30 mg DAILY ORAL 09/17/18 09:00 10/17/18 08:59 UNV Isosorbide Mononitrate (Imdur) 30 mg ONCE ONCE ORAL 09/16/18 12:30 09/16/18 12:31 UNV Levothyroxine Sodium (Synthroid) 50 mcg DAILY ORAL 09/15/18 09:00 10/15/18 08:59 09/16/18 09:28 Lorazepam (Ativan 2mg/ml 1ml) 1 mg Q4H PRN IV agitation 09/14/18 19:15 09/21/18 19:14 Mirtazapine (Remeron) 15 mg BEDTIME ORAL 09/14/18 21:00 10/14/18 20:59 09/15/18 21:41 Nitroglycerin (Ntg) 1 patch Q24H TDERMAL 09/14/18 21:00 10/14/18 20:59 09/15/18 21:42 Pantoprazole (Protonix) 40 mg Q12HR ORAL 09/14/18 21:00 10/14/18 20:59 09/16/18 09:28 Quetiapine Fumarate (SEROquel) 25 mg BID ORAL 09/16/18 09:00 10/16/18 08:59 09/16/18 09:28 Nir Lilly MD Sep 16, 2018 12:46
[2018-09-16] MEDS ORDERED: Imdur 30mg tab ORAL SCH (13:00)
--- NOTE | 2018-09-16 14:27 | Diagnostic Imaging Report ---
Indication: Abdominal aortic aneurysm Technique: Grayscale and duplex images of the abdominal aorta Comparison: 10/14/2017 renal ultrasound Findings: There is fusiform aneurysmal dilatation of the the most of the abdominal aorta, probably beginning suprarenal, which measures 4.4 cm AP dimension. This measures approximately 8 cm in length. There appears to be a very short distal neck, followed by some focal saccular aneurysmal dilatation which measures up to 3.3 cm in diameter.. There is ectasia of the bilateral common iliac arteries which are not quite aneurysmal, each measuring approximately 1.5 cm in diameter. There is some mural thrombus within the main aneurysm sac as well. The left common iliac artery appears to be thrombosed with partially diminished versus absent flow. Aneurysm measures 7.7 cm in length. Impression: 4.4 cm diameter fusiform abdominal aortic aneurysm. Of this is also evident on a prior abdomen pelvis CT scanner of 02/28/2012, diameter appearing larger currently than on that study. Ectatic bilateral common iliac arteries. Thrombus within the left common iliac artery, with diminution versus absence of flow. Consider dedicated arterial study and/or contrast CT for better characterization Findings discussed by phone with Dr. Coronado at the time of interpretation
[2018-09-16 16:00] VITALS: BP 103/51
--- NOTE | 2018-09-16 18:58 | Cardiology Progress Note ---
Assessment/Plan Assessment/Plan 1. Alteration of mentation. 2. Underlying dementia. 3. History of thoracic aortic aneurysm and abdominal aortic aneurysm. 4. Chronic renal insufficiency. 5. Coronary artery disease with remote history of coronary artery bypass grafting. 6. History of cerebrovascular accident. 7. Chronic kidney disease. 8. Diabetes mellitus. 9. Hemiplegia. 10. Abnormal cardiac enzymes. trop with out a peak nor steph to suggest coronary syndrome will not pursuit abd us showed 4.5 cm aneurysm which is not yet severe but question of lwo flow in iliac will need arterial duplex of leg to see if truley any issue awiat echo Subjective Cardiovascular: Denies: chest pain, lightheadedness Respiratory: Denies: shortness of breath Gastrointestinal/Abdominal: Denies: abdominal pain Genitourinary: Denies: burning Objective Last 24 Hour Vital Signs Date Time Temp Pulse Resp B/P (MAP) Pulse Ox O2 Delivery O2 Flow Rate FiO2 09/16/18 17:56 151/67 09/16/18 16:00 Room Air 09/16/18 16:00 97.7 50 20 103/51 (68) 95 09/16/18 15:16 73 09/16/18 13:41 140/62 09/16/18 12:29 185/73 09/16/18 12:00 Room Air 09/16/18 12:00 97.5 58 16 185/73 (110) 100 09/16/18 11:52 49 09/16/18 09:28 58 159/71 09/16/18 08:00 97.2 58 16 159/71 (100) 100 09/16/18 08:00 Room Air 09/16/18 07:45 48 09/16/18 06:00 135/50 09/16/18 04:00 Room Air 09/16/18 04:00 97.0 52 16 143/66 (91) 99 09/16/18 03:35 52 09/16/18 00:00 97.4 61 16 135/50 (78) 96 09/16/18 00:00 Room Air 09/15/18 23:50 55 09/15/18 21:42 144/72 18 21:42 144/72 18 21:41 79 144/72 09/15/18 20:00 97.2 79 18 144/72 (96) 98 09/15/18 20:00 Room Air 09/15/18 20:00 62 16 Room Air 21 General Appearance: alert Neck: supple Cardiovascular: normal rate Respiratory/Chest: lungs clear Abdomen: normal bowel sounds, non tender, soft Extremities: no swelling Intake and Output 09/15/18 09/16/18 18:59 06:59 Intake Total 450 ml 0 ml Output Total 400 ml 250 ml Balance 50 ml -250 ml Intake Oral 450 ml 0 ml Output Urine Total 400 ml 250 ml # Bowel Movements 2 Laboratory Tests Test 09/16/18 03:15 09/16/18 08:00 White Blood Count 8.0 K/UL (4.8-10.8) Red Blood Count 4.17 M/UL (4.20-5.40) L Hemoglobin 9.5 G/DL (12.0-16.0) L Hematocrit 29.9 % (37.0-47.0) L Mean Corpuscular Volume 72 FL (80-99) L Mean Corpuscular Hemoglobin 22.8 PG (27.0-31.0) L Mean Corpuscular Hemoglobin Concent 31.7 G/DL (32.0-36.0) L Red Cell Distribution Width 14.5 % (11.6-14.8) Platelet Count 271 K/UL (150-450) Mean Platelet Volume 7.9 FL (6.5-10.1) Neutrophils (%) (Auto) 76.6 % (45.0-75.0) H Lymphocytes (%) (Auto) 14.9 % (20.0-45.0) L Monocytes (%) (Auto) 6.4 % (1.0-10.0) Eosinophils (%) (Auto) 1.2 % (0.0-3.0) Basophils (%) (Auto) 0.9 % (0.0-2.0) Sodium Level 142 MMOL/L (136-145) Potassium Level 3.3 MMOL/L (3.5-5.1) L Chloride Level 107 MMOL/L (98-107) Carbon Dioxide Level 24 MMOL/L (21-32) Anion Gap 11 mmol/L (5-15) Blood Urea Nitrogen 19 mg/dL (7-18) H Creatinine 1.7 MG/DL (0.55-1.30) H Estimat Glomerular Filtration Rate mL/min (>60) Glucose Level 114 MG/DL (74-106) H Calcium Level 8.4 MG/DL (8.5-10.1) L Troponin I 0.206 ng/mL (0.000-0.056) C-Reactive Protein, Quantitative 3.0 mg/dL (0.00-0.90) H Urine Color Pale yellow Urine Appearance Slightly cloudy Urine pH 6 (4.5-8.0) Urine Specific [place] 1.010 (1.005-1.035) Urine Protein 3+ (NEGATIVE) H Urine Glucose (UA) Negative (NEGATIVE) Urine Ketones Negative (NEGATIVE) Urine Blood 2+ (NEGATIVE) H Urine Nitrite Negative (NEGATIVE) Urine Bilirubin Negative (NEGATIVE) Urine Urobilinogen Normal MG/DL (0.0-1.0) Urine Leukocyte Esterase 1+ (NEGATIVE) H Urine RBC 20-30 /HPF (0 - 2) H Urine WBC 5-10 /HPF (0 - 2) H Urine Squamous Epithelial Cells Moderate /LPF (NONE/OCC) H Urine Bacteria Many /HPF (NONE) H Microbiology Date/Time Source Procedure Growth Status 09/14/18 16:25 Rectum Received Doe Short MD Sep 16, 2018 18:58
[2018-09-16 20:00] VITALS: BP 126/83
[2018-09-16] MEDS: Nitroglycerin Patch 0.4mg TDERMAL SCH (21:00)
[2018-09-17] VITALS: BP 143/75
[2018-09-17] MEDS: HydrALAZINE 50mg tab ORAL SCH ×4 (00:53→21:14)
[2018-09-17 04:00] VITALS: BP 131/65
[2018-09-17 04:56] LABS: BASOPHILS % (AUTO) 0.8 % (0.0-2.0); EOSINOPHILS % (AUTO) 1.3 % (0.0-3.0); HEMATOCRIT 31.4 % (37.0-47.0); HEMOGLOBIN 9.8 G/DL (12.0-16.0); LYMPHOCYTES % (AUTO) 24.9 % (20.0-45.0); MEAN CORPUSCULAR VOLUME 72 FL (80-99); MONOCYTES % (AUTO) 9.5 % (1.0-10.0); NEUTROPHILS % (AUTO) 63.5 % (45.0-75.0); PLATELET COUNT 281 K/UL (150-450); RED BLOOD COUNT 4.34 M/UL (4.20-5.40); RED CELL DISTRIBUTION WIDTH 15.1 % (11.6-14.8); WHITE BLOOD COUNT 6.4 K/UL (4.8-10.8)
[2018-09-17 05:32] LABS: ALANINE AMINOTRANSFERASE 19 U/L (12-78); ALBUMIN 2.5 G/DL (3.4-5.0); ALBUMIN/GLOBULIN RATIO 0.5 (1.0-2.7); ALKALINE PHOSPHATASE 79 U/L (46-116); ANION GAP 10 mmol/L (5-15); ASPARTATE AMINO TRANSFERASE 37 U/L (15-37); BILIRUBIN,TOTAL 0.2 MG/DL (0.2-1.0); BLOOD UREA NITROGEN 16 mg/dL (7-18); CALCIUM 8.2 MG/DL (8.5-10.1); CARBON DIOXIDE 24 MMOL/L (21-32); CHLORIDE 109 MMOL/L (98-107); CREATININE 1.8 MG/DL (0.55-1.30); PHOSPHORUS 3.4 MG/DL (2.5-4.9); POTASSIUM 3.6 MMOL/L (3.5-5.1); SODIUM 143 MMOL/L (136-145)
[2018-09-17] MEDS: Heparin 5000 units/ml inj SUBQ SCH ×3 (06:19→21:13)
[2018-09-17 08:00] VITALS: BP 162/85
[2018-09-17] MEDS: Imdur 30mg tab ORAL SCH (08:05)
[2018-09-17] MEDS: Docusate 100mg cap ORAL SCH ×3 (08:06→17:12)
--- NOTE | 2018-09-17 11:15 | Pulmonology Progress Note ---
Assessment/Plan Problems: (1) NSTEMI (non-ST elevated myocardial infarction) (2) Anemia (3) Diabetes mellitus (4) Dementia Assessment/Plan no new events comfortable symptomatic treatment f/u cardiology recommendations titrate fio2 to sat of 92% anemia w/u respiratory treatment dvt prophylaxis aspiration precaution. consider DNR and comfort care if ok with family members. Subjective ROS Limited/Unobtainable: No Constitutional: Reports: no symptoms HEENT: Repors: no symptoms Respiratory: Reports: no symptoms Allergies: Coded Allergies: No Known Allergies (Unverified , 10/13/17) Objective Last 24 Hour Vital Signs Date Time Temp Pulse Resp B/P (MAP) Pulse Ox O2 Delivery O2 Flow Rate FiO2 09/17/18 08:07 68 131/65 09/17/18 08:05 131/65 09/17/18 08:00 Nasal Cannula 2.0 09/17/18 08:00 97.3 69 20 162/85 (110) 95 09/17/18 08:00 76 09/17/18 06:00 131/65 09/17/18 04:00 97.8 68 20 131/65 (87) 98 09/17/18 04:00 Nasal Cannula 2.0 09/17/18 03:21 67 09/17/18 00:53 143/75 09/17/18 00:00 97.6 61 20 143/75 (97) 96 09/17/18 00:00 Nasal Cannula 2.0 09/16/18 23:55 67 20 Room Air 21 09/16/18 23:21 62 09/16/18 21:00 123/83 09/16/18 20:00 98.0 57 18 126/83 (97) 98 09/16/18 20:00 Nasal Cannula 2.0 09/16/18 19:04 56 18 17:56 151/67 09/16/18 16:00 Nasal Cannula 2.0 09/16/18 16:00 97.7 50 20 103/51 (68) 95 09/16/18 15:16 73 18 13:41 140/62 18 12:29 185/73 09/16/18 12:00 Nasal Cannula 2.0 09/16/18 12:00 97.5 58 16 185/73 (110) 100 09/16/18 11:52 49 Intake and Output 09/16/18 09/17/18 19:00 07:00 Intake Total 705 ml Output Total 400 ml 150 ml Balance 305 ml -150 ml Intake Oral 450 ml IV Total 255 ml Output Urine Total 400 ml 150 ml # Bowel Movements 2 2 General Appearance: WD/WN HEENT: normocephalic, atraumatic Respiratory/Chest: chest wall non-tender, lungs clear Cardiovascular: normal peripheral pulses, normal rate Abdomen: normal bowel sounds, soft, non tender Genitourinary: normal external genitalia Extremities: no clubbing Skin: no rash Microbiology Date/Time Source Procedure Growth Status 09/14/18 16:25 Nasal Nares MRSA Culture - Final NO METHICILLIN RESISTANT STAPH AUREUS... Complete 09/16/18 08:00 Indwelling Cath Urine Culture - Preliminary Mixed Gram Positive Organism Resulted 09/14/18 16:25 Rectum VRE Culture - Final NO VANCOMYCIN RESISTANT ENTEROCOCCUS ... Complete 09/14/18 16:25 Rectum - Final NO CARBAPENEM-RESISTANT ENTEROBACTERI... Complete Laboratory Tests 09/17/18 03:10: White Blood Count 6.4, Red Blood Count 4.34, Hemoglobin 9.8L, Hematocrit 31.4L, Mean Corpuscular Volume 72L, Mean Corpuscular Hemoglobin 22.6L, Mean Corpuscular Hemoglobin Concent 31.2L, Red Cell Distribution Width 15.1H, Platelet Count 281, Mean Platelet Volume 7.8, Neutrophils (%) (Auto) 63.5, Lymphocytes (%) (Auto) 24.9, Monocytes (%) (Auto) 9.5, Eosinophils (%) (Auto) 1.3, Basophils (%) (Auto) 0.8, Sodium Level 143, Potassium Level 3.6, Chloride Level 109H, Carbon Dioxide Level 24, Anion Gap 10, Blood Urea Nitrogen 16, Creatinine 1.8H, Estimat Glomerular Filtration Rate , Glucose Level 107H, Uric Acid 7.3H, Calcium Level 8.2L, Phosphorus Level 3.4, Magnesium Level 1.7L, Total Bilirubin 0.2, Aspartate Amino Transf (AST/SGOT) 37, Alanine Aminotransferase (ALT/SGPT) 19, Alkaline Phosphatase 79, Troponin I 0.095H, Pro- B-Type Natriuretic Peptide 2394H, Total Protein 7.1, Albumin 2.5L, Globulin 4.6 , Albumin/Globulin Ratio 0.5L Current Medications Medications (Trade) Dose Ordered Sig/Jennie Route PRN Reason Start Time Stop Time Status Last Admin Dose Admin Acetaminophen (Tylenol) 650 mg Q4H PRN ORAL Mild Pain/Temp > 100.5 09/14/18 18:45 10/14/18 18:44 Albuterol/ Ipratropium (Albuterol/ Ipratropium) 3 ml Q4H PRN HHN sob 09/15/18 08:45 09/20/18 08:44 Amlodipine Besylate (Norvasc) 5 mg DAILY ORAL 09/16/18 09:00 10/16/18 08:59 09/17/18 08:07 Aspirin (ASA) 325 mg DAILY ORAL 09/15/18 09:00 10/15/18 08:59 09/17/18 08:06 Atorvastatin Calcium (Lipitor) 10 mg BEDTIME ORAL 09/14/18 21:00 10/14/18 20:59 09/16/18 21:19 Docusate Sodium (Colace) 100 mg TID ORAL 09/15/18 09:00 10/15/18 08:59 09/17/18 08:06 Heparin Sodium (Porcine) (Heparin 5000 units/ml) 5,000 units EVERY 8 HOURS SUBQ 09/14/18 22:00 10/14/18 21:59 09/17/18 06:19 Hydralazine HCl (Apresoline) 25 mg Q4H PRN ORAL bp over 160 syst 09/15/18 10:15 10/15/18 10:14 Hydralazine HCl (Apresoline) 50 mg Q6HR ORAL 09/16/18 12:00 10/16/18 11:59 09/17/18 00:53 Isosorbide Mononitrate (Imdur) 30 mg DAILY ORAL 09/17/18 09:00 10/17/18 08:59 09/17/18 08:05 Levothyroxine Sodium (Synthroid) 50 mcg DAILY ORAL 09/15/18 09:00 10/15/18 08:59 09/17/18 08:07 Lorazepam (Ativan 2mg/ml 1ml) 1 mg Q4H PRN IV agitation 09/14/18 19:15 09/21/18 19:14 Mirtazapine (Remeron) 15 mg BEDTIME ORAL 09/14/18 21:00 10/14/18 20:59 09/16/18 21:18 Nitroglycerin (Ntg) 1 patch Q24H TDERMAL 09/14/18 21:00 10/14/18 20:59 09/15/18 21:42 Pantoprazole (Protonix) 40 mg Q12HR ORAL 09/14/18 21:00 10/14/18 20:59 09/17/18 08:07 Quetiapine Fumarate (SEROquel) 25 mg BID ORAL 09/16/18 09:00 10/16/18 08:59 09/17/18 08:07 Nir Lilly MD Sep 17, 2018 11:15
[2018-09-17 12:00] VITALS: BP 161/73
--- NOTE | 2018-09-17 12:25 | General Progress Note ---
Assessment/Plan Problem List: (1) Acute on chronic renal failure Assessment & Plan: with proteinuria ICD Codes: N17.9 - Acute kidney failure, unspecified; N18.9 - Chronic kidney disease, unspecified SNOMED: 695613204, [id number] Qualifiers: Qualified Codes: N17.9 - Acute kidney failure, unspecified; N18.3 - Chronic kidney disease, stage 3 (moderate) (2) Hypertensive urgency ICD Codes: I16.0 - Hypertensive urgency SNOMED: 209543250 (3) Dementia Assessment & Plan: with acute encephalopathy ICD Codes: F03.90 - Unspecified dementia without behavioral disturbance SNOMED: 31125291 Qualifiers: Qualified Codes: F03.91 - Unspecified dementia with behavioral disturbance (4) Anemia ICD Codes: D64.9 - Anemia, unspecified SNOMED: 418234178 (5) UTI (urinary tract infection) ICD Codes: N39.0 - Urinary tract infection, site not specified SNOMED: 07223795 Status: stable Status Narrative abd us showed 4.5 cm aneurysm which is not yet severe but question of lwo flow in iliac arterial duplex abn foot warm to touch may consider vascualr eval ? Assessment/Plan cardiac eval pulm eval nitro , beta ryan asa rocephin add seroquel adjust BP meds Subjective ROS Limited/Unobtainable: No Constitutional: Reports: other - much calmer Allergies: Coded Allergies: No Known Allergies (Unverified , 10/13/17) Objective Last 24 Hour Vital Signs Date Time Temp Pulse Resp B/P (MAP) Pulse Ox O2 Delivery O2 Flow Rate FiO2 09/17/18 08:07 68 131/65 09/17/18 08:05 131/65 09/17/18 08:00 Nasal Cannula 2.0 09/17/18 08:00 97.3 69 20 162/85 (110) 95 09/17/18 08:00 76 09/17/18 06:00 131/65 09/17/18 04:00 97.8 68 20 131/65 (87) 98 09/17/18 04:00 Nasal Cannula 2.0 09/17/18 03:21 67 09/17/18 00:53 143/75 09/17/18 00:00 97.6 61 20 143/75 (97) 96 09/17/18 00:00 Nasal Cannula 2.0 09/16/18 23:55 67 20 Room Air 21 09/16/18 23:21 62 09/16/18 21:00 123/83 09/16/18 20:00 98.0 57 18 126/83 (97) 98 09/16/18 20:00 Nasal Cannula 2.0 09/16/18 19:04 56 09/16/18 17:56 151/67 09/16/18 16:00 Nasal Cannula 2.0 09/16/18 16:00 97.7 50 20 103/51 (68) 95 09/16/18 15:16 73 09/16/18 13:41 140/62 09/16/18 12:29 185/73 Intake and Output 09/16/18 09/17/18 19:00 07:00 Intake Total 705 ml Output Total 400 ml 150 ml Balance 305 ml -150 ml Intake Oral 450 ml IV Total 255 ml Output Urine Total 400 ml 150 ml # Bowel Movements 2 2 Laboratory Tests 09/17/18 03:10: White Blood Count 6.4, Red Blood Count 4.34, Hemoglobin 9.8L, Hematocrit 31.4L, Mean Corpuscular Volume 72L, Mean Corpuscular Hemoglobin 22.6L, Mean Corpuscular Hemoglobin Concent 31.2L, Red Cell Distribution Width 15.1H, Platelet Count 281, Mean Platelet Volume 7.8, Neutrophils (%) (Auto) 63.5, Lymphocytes (%) (Auto) 24.9, Monocytes (%) (Auto) 9.5, Eosinophils (%) (Auto) 1.3, Basophils (%) (Auto) 0.8, Sodium Level 143, Potassium Level 3.6, Chloride Level 109H, Carbon Dioxide Level 24, Anion Gap 10, Blood Urea Nitrogen 16, Creatinine 1.8H, Estimat Glomerular Filtration Rate , Glucose Level 107H, Uric Acid 7.3H, Calcium Level 8.2L, Phosphorus Level 3.4, Magnesium Level 1.7L, Total Bilirubin 0.2, Aspartate Amino Transf (AST/SGOT) 37, Alanine Aminotransferase (ALT/SGPT) 19, Alkaline Phosphatase 79, Troponin I 0.095H, Pro- B-Type Natriuretic Peptide 2394H, Total Protein 7.1, Albumin 2.5L, Globulin 4.6 , Albumin/Globulin Ratio 0.5L Height (Feet): 5 Height (Inches): 3.00 Weight (Pounds): 113 General Appearance: no apparent distress Cardiovascular: normal rate Respiratory/Chest: decreased breath sounds Abdomen: soft Extremities: other - warm Suresh Coronado MD Sep 17, 2018 12:25
--- NOTE | 2018-09-17 13:22 | Cardiology Progress Note ---
Assessment/Plan Assessment/Plan 1. Alteration of mentation. 2. Underlying dementia. 3. History of thoracic aortic aneurysm and abdominal aortic aneurysm. 4. Chronic renal insufficiency. 5. Coronary artery disease with remote history of coronary artery bypass grafting. 6. History of cerebrovascular accident. 7. Chronic kidney disease. 8. Diabetes mellitus. 9. Hemiplegia. 10. Abnormal cardiac enzymes. trop with out a peak nor steph to suggest coronary syndrome will not pursuit abd us showed 4.5 cm aneurysm which is not yet severe but question of lwo flow in iliac arterial duplex abn foot warm to touch may consider vascualr eval awiat echo to review to see if any swma looks better Subjective Cardiovascular: Denies: chest pain, lightheadedness, palpitations Respiratory: Denies: shortness of breath Gastrointestinal/Abdominal: Denies: abdominal pain Genitourinary: Denies: burning Objective Last 24 Hour Vital Signs Date Time Temp Pulse Resp B/P (MAP) Pulse Ox O2 Delivery O2 Flow Rate FiO2 09/17/18 12:55 161/73 09/17/18 12:00 Nasal Cannula 2.0 09/17/18 12:00 98.1 66 22 161/73 (102) 94 09/17/18 08:07 68 131/65 09/17/18 08:05 131/65 09/17/18 08:00 Nasal Cannula 2.0 09/17/18 08:00 97.3 69 20 162/85 (110) 95 09/17/18 08:00 76 09/17/18 07:11 73 18 Room Air 21 09/17/18 06:00 131/65 09/17/18 04:00 97.8 68 20 131/65 (87) 98 09/17/18 04:00 Nasal Cannula 2.0 09/17/18 03:21 67 09/17/18 00:53 143/75 09/17/18 00:00 97.6 61 20 143/75 (97) 96 09/17/18 00:00 Nasal Cannula 2.0 09/16/18 23:55 67 20 Room Air 21 09/16/18 23:21 62 09/16/18 21:00 123/83 09/16/18 20:00 98.0 57 18 126/83 (97) 98 09/16/18 20:00 Nasal Cannula 2.0 12/17/18 19:04 56 09/16/18 17:56 151/67 09/16/18 16:00 Nasal Cannula 2.0 09/16/18 16:00 97.7 50 20 103/51 (68) 95 09/16/18 15:16 73 09/16/18 13:41 140/62 General Appearance: no apparent distress, alert Neck: supple Cardiovascular: normal rate, regular rhythm Respiratory/Chest: lungs clear, normal breath sounds Abdomen: normal bowel sounds, non tender, soft Extremities: no swelling Intake and Output 09/16/18 09/17/18 19:00 07:00 Intake Total 705 ml Output Total 400 ml 150 ml Balance 305 ml -150 ml Intake Oral 450 ml IV Total 255 ml Output Urine Total 400 ml 150 ml # Bowel Movements 2 2 Laboratory Tests Test 09/17/18 03:10 White Blood Count 6.4 K/UL (4.8-10.8) Red Blood Count 4.34 M/UL (4.20-5.40) Hemoglobin 9.8 G/DL (12.0-16.0) L Hematocrit 31.4 % (37.0-47.0) L Mean Corpuscular Volume 72 FL (80-99) L Mean Corpuscular Hemoglobin 22.6 PG (27.0-31.0) L Mean Corpuscular Hemoglobin Concent 31.2 G/DL (32.0-36.0) L Red Cell Distribution Width 15.1 % (11.6-14.8) H Platelet Count 281 K/UL (150-450) Mean Platelet Volume 7.8 FL (6.5-10.1) Neutrophils (%) (Auto) 63.5 % (45.0-75.0) Lymphocytes (%) (Auto) 24.9 % (20.0-45.0) Monocytes (%) (Auto) 9.5 % (1.0-10.0) Eosinophils (%) (Auto) 1.3 % (0.0-3.0) Basophils (%) (Auto) 0.8 % (0.0-2.0) Sodium Level 143 MMOL/L (136-145) Potassium Level 3.6 MMOL/L (3.5-5.1) Chloride Level 109 MMOL/L (98-107) H Carbon Dioxide Level 24 MMOL/L (21-32) Anion Gap 10 mmol/L (5-15) Blood Urea Nitrogen 16 mg/dL (7-18) Creatinine 1.8 MG/DL (0.55-1.30) H Estimat Glomerular Filtration Rate mL/min (>60) Glucose Level 107 MG/DL (74-106) H Uric Acid 7.3 MG/DL (2.6-7.2) H Calcium Level 8.2 MG/DL (8.5-10.1) L Phosphorus Level 3.4 MG/DL (2.5-4.9) Magnesium Level 1.7 MG/DL (1.8-2.4) L Total Bilirubin 0.2 MG/DL (0.2-1.0) Aspartate Amino Transf (AST/SGOT) 37 U/L (15-37) Alanine Aminotransferase (ALT/SGPT) 19 U/L (12-78) Alkaline Phosphatase 79 U/L (46-116) Troponin I 0.095 ng/mL (0.000-0.056) Pro-B-Type Natriuretic Peptide 2394 pg/mL (0-125) H Total Protein 7.1 G/DL (6.4-8.2) Albumin 2.5 G/DL (3.4-5.0) L Globulin 4.6 g/dL Albumin/Globulin Ratio 0.5 (1.0-2.7) L Microbiology Date/Time Source Procedure Growth Status 09/14/18 16:25 Nasal Nares MRSA Culture - Final NO METHICILLIN RESISTANT STAPH AUREUS... Complete 09/16/18 08:00 Indwelling Cath Urine Culture - Preliminary Mixed Gram Positive Organism Resulted 09/14/18 16:25 Rectum VRE Culture - Final NO VANCOMYCIN RESISTANT ENTEROCOCCUS ... Complete 09/14/18 16:25 Rectum - Final NO CARBAPENEM-RESISTANT ENTEROBACTERI... Complete Doe Short MD Sep 17, 2018 13:22
--- NOTE | 2018-09-17 14:29 | Cardiology Report ---
APPROVED REPORT EXAM: Two-dimensional and M-mode echocardiogram with Doppler and color Doppler. INDICATION Chest Pain M-Mode DIMENSIONS IVSd1.5 (0.7-1.1cm)Left Atrium (MM)3.1 (1.6-4.0cm) LVDd3.8 (3.5-5.6cm)Aortic Root3.3 (2.0-3.7cm) PWd1.3 (0.7-1.1cm)Aortic Cusp Exc.1.7 (1.5-2.0cm) IVSs1.7 cm LVDs2.7 (2.5-4.0cm) PWs1.4 cm Technically difficult study due to poor acoustical windows. Normal left ventricular chamber size, systolic function and wall motion to extent visualized. Left ventricular ejection fraction estimated to be 55-60 %. Study quality precludes accurate assessment of regional wall motion. Moderate-severe left ventricular hypertrophy. No evidence of pericardial effusion. All other cardiac chamber sizes are within normal limits. Heavily focal aortic valve sclerosis with adequate cusp excursion. Mildly thickened mitral valve leaflets with normal excursion. Mitral annulus and aortic root calcification. Pulmonic valve structure not well visualized . Normal tricuspid valve structure. IVC at 2.2 cm without physiologic collapse suggestive of increased RA pressure. A color flow and spectral Doppler study was performed and revealed: No aortic regurgitation. Mild to moderate mitral regurgitation. Mitral inflow velocities indicates possible pseudo normalization pattern implying moderately elevated left atrial pressure (Grade II ) Mild tricuspid regurgitation. Tricuspid systolic velocities suggests peak right ventricular systolic pressure of 55 mmHg,consistent with moderate pulmonary hypertension . Trace pulmonic regurgitation.
--- NOTE | 2018-09-17 14:43 | Cardiology Report ---
APPROVED REPORT EKG Measurement Heart [id number] NH 194P-9 [id number] Normal sinus rhythm Left ventricular hypertrophy with repolarization abnormality Abnormal ECG
[2018-09-17 16:00] VITALS: BP 138/99
[2018-09-17] MEDS ORDERED: cefTRIAXone 1 GM in D5W 55 ML IVPB ONE (18:00)
[2018-09-17 20:00] VITALS: BP 151/65
[2018-09-17] MEDS: Nitroglycerin Patch 0.4mg TDERMAL SCH (20:31)
[2018-09-18] VITALS: BP 152/76
[2018-09-18 04:00] VITALS: BP 150/69
[2018-09-18] MEDS: HydrALAZINE 50mg tab ORAL SCH ×2 (05:24→13:53)
[2018-09-18] MEDS: Heparin 5000 units/ml inj SUBQ SCH ×2 (05:26→13:56)
[2018-09-18 08:00] VITALS: BP 153/83
[2018-09-18] MEDS: Imdur 30mg tab ORAL SCH (08:58)
[2018-09-18] MEDS: Docusate 100mg cap ORAL SCH ×3 (08:59→17:49)
--- NOTE | 2018-09-18 11:17 | Pulmonology Progress Note ---
Assessment/Plan Problems: (1) NSTEMI (non-ST elevated myocardial infarction) (2) Anemia (3) Diabetes mellitus (4) Dementia Assessment/Plan no new events comfortable symptomatic treatment f/u cardiology recommendations titrate fio2 to sat of 92% anemia w/u respiratory treatment dvt prophylaxis aspiration precaution. consider DNR and comfort care if ok with family members. Subjective ROS Limited/Unobtainable: No Constitutional: Reports: no symptoms HEENT: Repors: no symptoms Respiratory: Reports: no symptoms Allergies: Coded Allergies: No Known Allergies (Unverified , 10/13/17) Objective Last 24 Hour Vital Signs Date Time Temp Pulse Resp B/P (MAP) Pulse Ox O2 Delivery O2 Flow Rate FiO2 09/18/18 08:59 87 153/83 09/18/18 08:58 153/83 09/18/18 08:00 Nasal Cannula 2.0 09/18/18 08:00 98.0 87 21 153/83 (106) 95 09/18/18 07:35 82 09/18/18 07:00 70 14 Room Air 21 09/18/18 05:24 179/77 09/18/18 04:00 Nasal Cannula 2.0 09/18/18 04:00 98.3 59 20 150/69 (96) 95 09/18/18 04:00 56 09/18/18 00:00 56 09/18/18 00:00 97.4 60 24 152/76 (101) 99 09/18/18 00:00 Nasal Cannula 2.0 09/17/18 21:14 144/60 09/17/18 20:31 151/65 09/17/18 20:25 74 14 Room Air 21 09/17/18 20:00 97.7 75 20 151/65 (93) 96 09/17/18 20:00 Nasal Cannula 2.0 09/17/18 20:00 68 09/17/18 17:11 78 138/99 09/17/18 16:00 97.9 78 18 138/99 (112) 96 09/17/18 16:00 65 09/17/18 16:00 Nasal Cannula 2.0 09/17/18 12:55 161/73 09/17/18 12:00 Nasal Cannula 2.0 09/17/18 12:00 98.1 66 22 161/73 (102) 94 09/17/18 12:00 63 Intake and Output 09/17/18 09/18/18 19:00 07:00 Intake Total 55 ml 240 ml Output Total 500 ml Balance -445 ml 240 ml Intake Oral 240 ml IV Total 55 ml Output Urine Total 500 ml # Voids 2 General Appearance: WD/WN HEENT: normocephalic, atraumatic Respiratory/Chest: chest wall non-tender, lungs clear Cardiovascular: normal peripheral pulses Abdomen: normal bowel sounds, soft, non tender Genitourinary: normal external genitalia Skin: no lesions Microbiology Date/Time Source Procedure Growth Status 09/16/18 08:00 Indwelling Cath Urine Culture - Final Gram Negative Bacillus 1 Complete Current Medications Medications (Trade) Dose Ordered Sig/Jennie Route PRN Reason Start Time Stop Time Status Last Admin Dose Admin Acetaminophen (Tylenol) 650 mg Q4H PRN ORAL Mild Pain/Temp > 100.5 09/14/18 18:45 10/14/18 18:44 Albuterol/ Ipratropium (Albuterol/ Ipratropium) 3 ml Q4H PRN HHN sob 09/15/18 08:45 09/20/18 08:44 Amlodipine Besylate (Norvasc) 5 mg BID ORAL 09/17/18 18:00 10/16/18 08:59 09/18/18 08:59 Aspirin (ASA) 325 mg DAILY ORAL 09/15/18 09:00 10/15/18 08:59 09/18/18 08:59 Atorvastatin Calcium (Lipitor) 10 mg BEDTIME ORAL 09/14/18 21:00 10/14/18 20:59 09/17/18 20:30 Docusate Sodium (Colace) 100 mg TID ORAL 09/15/18 09:00 10/15/18 08:59 09/18/18 08:59 Heparin Sodium (Porcine) (Heparin 5000 units/ml) 5,000 units EVERY 8 HOURS SUBQ 09/14/18 22:00 10/14/18 21:59 09/18/18 05:26 Hydralazine HCl (Apresoline) 25 mg Q4H PRN ORAL bp over 160 syst 09/15/18 10:15 10/15/18 10:14 Hydralazine HCl (Apresoline) 50 mg Q8HR ORAL 09/17/18 22:00 10/16/18 11:59 09/18/18 05:24 Isosorbide Mononitrate (Imdur) 30 mg DAILY ORAL 09/17/18 09:00 10/17/18 08:59 09/18/18 08:58 Levothyroxine Sodium (Synthroid) 50 mcg DAILY ORAL 09/15/18 09:00 10/15/18 08:59 09/18/18 09:00 Lorazepam (Ativan 2mg/ml 1ml) 1 mg Q4H PRN IV agitation 09/14/18 19:15 09/21/18 19:14 Mirtazapine (Remeron) 15 mg BEDTIME ORAL 09/14/18 21:00 10/14/18 20:59 09/17/18 20:30 Nitroglycerin (Ntg) 1 patch Q24H TDERMAL 09/14/18 21:00 10/14/18 20:59 09/17/18 20:31 Pantoprazole (Protonix) 40 mg Q12HR ORAL 09/14/18 21:00 10/14/18 20:59 09/18/18 08:58 Quetiapine Fumarate (SEROquel) 25 mg BID ORAL 09/16/18 09:00 10/16/18 08:59 09/18/18 08:59 Nir Lilly MD Sep 18, 2018 11:17
[2018-09-18 12:00] VITALS: BP 163/73
--- NOTE | 2018-09-18 14:35 | General Progress Note ---
Assessment/Plan Problem List: (1) Acute on chronic renal failure Assessment & Plan: with proteinuria ICD Codes: N17.9 - Acute kidney failure, unspecified; N18.9 - Chronic kidney disease, unspecified SNOMED: 278721395, [id number] Qualifiers: Qualified Codes: N17.9 - Acute kidney failure, unspecified; N18.3 - Chronic kidney disease, stage 3 (moderate) (2) Hypertensive urgency ICD Codes: I16.0 - Hypertensive urgency SNOMED: 505002835 (3) Dementia Assessment & Plan: with acute encephalopathy ICD Codes: F03.90 - Unspecified dementia without behavioral disturbance SNOMED: 40617676 Qualifiers: Qualified Codes: F03.91 - Unspecified dementia with behavioral disturbance (4) Anemia ICD Codes: D64.9 - Anemia, unspecified SNOMED: 311999196 (5) UTI (urinary tract infection) ICD Codes: N39.0 - Urinary tract infection, site not specified SNOMED: 83263868 Status: stable Assessment/Plan cardiac eval pulm eval nitro , beta ryan asa rocephin add seroquel adjust BP meds DC to ecf and fu aneurysm as OP Subjective ROS Limited/Unobtainable: No Constitutional: Reports: other - calm Allergies: Coded Allergies: No Known Allergies (Unverified , 10/13/17) Objective Last 24 Hour Vital Signs Date Time Temp Pulse Resp B/P (MAP) Pulse Ox O2 Delivery O2 Flow Rate FiO2 09/18/18 13:53 163/73 09/18/18 12:00 98.7 63 20 163/73 (103) 98 09/18/18 12:00 Nasal Cannula 2.0 09/18/18 11:54 60 09/18/18 08:59 87 153/83 09/18/18 08:58 153/83 09/18/18 08:00 Nasal Cannula 2.0 09/18/18 08:00 98.0 87 21 153/83 (106) 95 09/18/18 07:35 82 09/18/18 07:00 70 14 Room Air 09/18/18 05:24 179/77 09/18/18 04:00 Nasal Cannula 2.0 09/18/18 04:00 98.3 59 20 150/69 (96) 95 09/18/18 04:00 56 09/18/18 00:00 56 09/18/18 00:00 97.4 60 24 152/76 (101) 99 09/18/18 00:00 Nasal Cannula 2.0 09/17/18 21:14 144/60 09/17/18 20:31 151/65 09/17/18 20:25 74 14 Room Air 21 09/17/18 20:00 97.7 75 20 151/65 (93) 96 09/17/18 20:00 Nasal Cannula 2.0 09/17/18 20:00 68 09/17/18 17:11 78 138/99 09/17/18 16:00 97.9 78 18 138/99 (112) 96 09/17/18 16:00 65 09/17/18 16:00 Nasal Cannula 2.0 Intake and Output 09/17/18 09/18/18 19:00 07:00 Intake Total 55 ml 240 ml Output Total 500 ml Balance -445 ml 240 ml Intake Oral 240 ml IV Total 55 ml Output Urine Total 500 ml # Voids 2 Current Medications Medications (Trade) Dose Ordered Sig/Jennie Route PRN Reason Start Time Stop Time Status Last Admin Dose Admin Acetaminophen (Tylenol) 650 mg Q4H PRN ORAL Mild Pain/Temp > 100.5 09/14/18 18:45 10/14/18 18:44 Albuterol/ Ipratropium (Albuterol/ Ipratropium) 3 ml Q4H PRN HHN sob 09/15/18 08:45 09/20/18 08:44 Amlodipine Besylate (Norvasc) 5 mg BID ORAL 09/17/18 18:00 10/16/18 08:59 09/18/18 08:59 Aspirin (ASA) 325 mg DAILY ORAL 09/15/18 09:00 10/15/18 08:59 09/18/18 08:59 Atorvastatin Calcium (Lipitor) 10 mg BEDTIME ORAL 09/14/18 21:00 10/14/18 20:59 09/17/18 20:30 Docusate Sodium (Colace) 100 mg TID ORAL 09/15/18 09:00 10/15/18 08:59 09/18/18 13:53 Heparin Sodium (Porcine) (Heparin 5000 units/ml) 5,000 units EVERY 8 HOURS SUBQ 09/14/18 22:00 10/14/18 21:59 09/18/18 13:56 Hydralazine HCl (Apresoline) 25 mg Q4H PRN ORAL bp over 160 syst 09/15/18 10:15 10/15/18 10:14 Hydralazine HCl (Apresoline) 50 mg Q8HR ORAL 09/17/18 22:00 10/16/18 11:59 09/18/18 13:53 Isosorbide Mononitrate (Imdur) 30 mg DAILY ORAL 09/17/18 09:00 10/17/18 08:59 09/18/18 08:58 Levothyroxine Sodium (Synthroid) 50 mcg DAILY ORAL 09/15/18 09:00 10/15/18 08:59 09/18/18 09:00 Lorazepam (Ativan 2mg/ml 1ml) 1 mg Q4H PRN IV agitation 09/14/18 19:15 09/21/18 19:14 Mirtazapine (Remeron) 15 mg BEDTIME ORAL 09/14/18 21:00 10/14/18 20:59 09/17/18 20:30 Nitroglycerin (Ntg) 1 patch Q24H TDERMAL 09/14/18 21:00 10/14/18 20:59 09/17/18 20:31 Pantoprazole (Protonix) 40 mg Q12HR ORAL 09/14/18 21:00 10/14/18 20:59 09/18/18 08:58 Quetiapine Fumarate (SEROquel) 25 mg BID ORAL 09/16/18 09:00 10/16/18 08:59 09/18/18 08:59 Height (Feet): 5 Height (Inches): 3.00 Weight (Pounds): 123 General Appearance: no apparent distress Cardiovascular: normal rate Respiratory/Chest: lungs clear Abdomen: soft Suresh Coronado MD Sep 18, 2018 14:35
[2018-09-18] MEDS ORDERED: ISOSORBIDE MONO30 M1 ORAL (14:38)
[2018-09-18] MEDS ORDERED: NORVASC5 MG ORAL (14:38)
[2018-09-18] MEDS ORDERED: APRESOLINE50 MG ORAL (14:38)
[2018-09-18] MEDS ORDERED: LIPITOR10 MG ORAL (14:38)
[2018-09-18] MEDS ORDERED: ASPIRIN325 MG ORAL (14:38)
[2018-09-18] MEDS ORDERED: SYNTHROID50 MCG ORAL (14:38)
[2018-09-18] MEDS ORDERED: NTG1 PATCH TDERMAL (14:38)
[2018-09-18] MEDS ORDERED: PROTONIX40 MG ORAL (14:38)
[2018-09-18] MEDS ORDERED: DOK100 M1 ORAL (14:38)
--- NOTE | 2018-09-18 14:40 | Discharge Instructions ---
Discharge Instructions Discharge Instructions Follow up with: fu in ECF Diet: cardiac 2 GM Na, low fat Special Instructions Dietary consult Routin skin care aspiration percautions TSH CBC CMP first week of October For Congestive Heart Failure Reminder Report to your physician any weight gain of 5 pounds or more in one week. Suresh Coronado MD Sep 18, 2018 14:40
[2018-09-18 16:00] VITALS: BP 154/88
[2018-09-18 17:49] VITALS: BP 154/88
--- NOTE | 2018-09-18 19:13 | Cardiology Progress Note ---
Assessment/Plan Assessment/Plan 1. Alteration of mentation. 2. Underlying dementia. 3. History of thoracic aortic aneurysm and abdominal aortic aneurysm. 4. Chronic renal insufficiency. 5. Coronary artery disease with remote history of coronary artery bypass grafting. 6. History of cerebrovascular accident. 7. Chronic kidney disease. 8. Diabetes mellitus. 9. Hemiplegia. 10. Abnormal cardiac enzymes. trop with out a peak nor steph to suggest coronary syndrome will not pursuit abd us showed 4.5 cm aneurysm which is not yet severe but question of lwo flow in iliac arterial duplex abn foot warm to touch may consider vascualr eval in futuer if changes looks better echo normal wallmotion Subjective Cardiovascular: Denies: chest pain, lightheadedness, palpitations Respiratory: Denies: shortness of breath Genitourinary: Denies: burning Subjective cristina foot or leg pain Objective Last 24 Hour Vital Signs Date Time Temp Pulse Resp B/P (MAP) Pulse Ox O2 Delivery O2 Flow Rate FiO2 09/18/18 17:49 121 154/88 09/18/18 16:00 Nasal Cannula 2.0 09/18/18 16:00 121 09/18/18 16:00 97.8 89 20 154/88 (110) 96 09/18/18 13:53 163/73 09/18/18 12:00 98.7 63 20 163/73 (103) 98 09/18/18 12:00 Nasal Cannula 2.0 09/18/18 11:54 60 09/18/18 08:59 87 153/83 09/18/18 08:58 153/83 09/18/18 08:00 Nasal Cannula 2.0 09/18/18 08:00 98.0 87 21 153/83 (106) 95 09/18/18 07:35 82 09/18/18 07:00 70 14 Room Air 21 09/18/18 05:24 179/77 09/18/18 04:00 Nasal Cannula 2.0 09/18/18 04:00 98.3 59 20 150/69 (96) 95 09/18/18 04:00 56 09/18/18 00:00 56 09/18/18 00:00 97.4 60 24 152/76 (101) 99 09/18/18 00:00 Nasal Cannula 2.0 09/17/18 21:14 144/60 09/17/18 20:31 151/65 09/17/18 20:25 74 14 Room Air 21 09/17/18 20:00 97.7 75 20 151/65 (93) 96 09/17/18 20:00 Nasal Cannula 2.0 09/17/18 20:00 68 General Appearance: no apparent distress, alert Neck: supple Cardiovascular: normal rate, regular rhythm Respiratory/Chest: chest wall non-tender, lungs clear Abdomen: normal bowel sounds, non tender, soft Extremities: no swelling Intake and Output 09/17/18 09/18/18 19:00 07:00 Intake Total 55 ml 240 ml Output Total 500 ml Balance -445 ml 240 ml Intake Oral 240 ml IV Total 55 ml Output Urine Total 500 ml # Voids 2 Microbiology Date/Time Source Procedure Growth Status 09/16/18 08:00 Indwelling Cath Urine Culture - Final Gram Negative Bacillus 1 Complete Doe Short MD Sep 18, 2018 19:13
[2018-09-18] MEDS ORDERED: Tubing IV Secondary IV ONE (20:04)
[2018-09-18] MEDS ORDERED: NS 275ml ONE (20:04)
--- NOTE | 2018-09-19 08:30 | Discharge Summary ---
Discharge Summary Discharge Summary _ DATE OF ADMISSION: 09/14/2018 DATE OF DISCHARGE: 09/18/2018 DISCHARGED BY: Dr. Suresh Coronado CONSULTANTS: Dr. Doe Lilly BRIEF HOSPITAL COURSE: Patient is an 88-year-old female, long term resident, was originally transferred to the emergency room for evaluation of altered level of consciousness and increased confusion. Patient is a poor historian. She has medical history significant for CVA, hypothyroidism, hyperlipidemia, chronic kidney disease, coronary artery disease, previous coronary artery bypass surgery , dementia, hypertension, diabetes mellitus and COPD. On evaluation at the ED, blood pressure was elevated. Blood work showed normal WBC. Hemoglobin was 10.8, hematocrit 33. BUN was 25, creatinine 1.8. Urine toxicology was negative. Troponin was 0.27. EKG was in normal sinus rhythm. Chest x-ray showed nonspecific bilateral interstitial prominence. She was admitted for evaluation of renal failure, encephalopathy, elevated troponin, UTI and anemia. Patient was admitted to [facility]. Serial troponins were monitored. EKG showed evidence of left ventricular hypertrophy, repolarization abnormalities. She was given aspirin, nitroglycerin, and beta-ryan. Lipid panel was checked. She was given Lipitor 10 mg. Echocardiogram done showed left ventricular ejection fraction 55-60%. There was aortic valve sclerosis seen. No aortic regurgitation. Mild to moderate mitral regurgitation. Mild tricuspid regurgitation. Moderate pulmonary hypertension. Abdominal ultrasound showed a 4.4 cm abdominal aortic aneurysm and ectatic bilateral common iliac arteries; thrombus within the left common iliac artery, with diminution versus absence of flow. She was given hydralazine, Norvasc, and Imdur for blood pressure control. She was given breathing treatment. TSH was normal. She was continued on levothyroxine. She was given Rocephin for urinary tract infection. Urine culture with growth of gram-negative bacillus. Troponin level was without a peak nor steph to suggest coronary syndrome. She was cleared for discharge to [facility], to continue workup for aneurysm as outpatient. FINAL DIAGNOSES: Acute on chronic renal failure Hypertensive urgency Dementia Anemia Urinary tract infection Alteration of mentation/encephalopathy History of thoracic aneurysm and abdominal aortic aneurysm Coronary artery disease with remote history of coronary artery bypass graft Old CVA Diabetes mellitus Hemiplegia Abnormal cardiac enzymes DISPOSITION: Was discharged to [facility]. DISCHARGE MEDICATIONS: Refer to Discharge Medication List. I have been assigned to dictate discharge summary on this account, and I was not involved in the patient's management. Myranda Rinaldi NP Sep 19, 2018 08:30
--- NOTE | 2018-09-25 12:52 | Diagnostic Imaging Report ---
APPROVED REPORT CPT Code: 92046 Symptoms Comments: Hx of Spinal cord compression Pain RIGHT LEG: Common femoral artery waveform analysis is abnormal, suggestive of iliac arterial occlusive disease. Color flow duplex sonography reveals an occlusion in the proximal superficial femoral artery just after bifurcation. Reconstitution is seen in the mid superficial femoral artery. The popliteal artery is patent. The tibioperoneal trunk was not well visualized. The dorsalis pedis, and proximal posterior tibial arteries are patent. The anterior tibial artery and distal posterior tibial artery were not well visualized. Doppler waveform analysis is monophasic which is consistent, with critical ischemia at rest. LEFT LEG: Common femoral artery waveform analysis is abnormal, suggestive of iliac arterial occlusive disease. Color flow duplex sonography reveals diffuse plaque throughout the superficial femoral and popliteal arteries. The proximal popliteal artery is patent. There is no evidence of stenosis and occlusion within these segments. The tibioperoneal trunk was not well visualized. Doppler waveform analysis is monophasic which is consistent, with moderate ischemia at rest. RN was notified of abnormal results at 1300 hours.
== END 2018-09-18 20:05 | DRG 682 ==
LOC: EDBD 16:17 → EMR 16:35 → 2W 17:39 → EDBEDREQ 19:21
DX: N17.9 Acute kidney failure, unspecified (principal); G93.41 Metabolic encephalopathy; N39.0 Urinary tract infection, site not specified; I69.351 Hemiplegia and hemiparesis following cerebral infarction affecting right dominant side; I12.9 Hypertensive chronic kidney disease with stage 1 through stage 4 chronic kidney disease, or unspecified chronic kidney disease; E11.22 Type 2 diabetes mellitus with diabetic chronic kidney disease; N18.3 Chronic kidney disease, stage 3 (moderate); E03.9 Hypothyroidism, unspecified; E78.5 Hyperlipidemia, unspecified; Z95.1 Presence of aortocoronary bypass graft; F03.90 Unspecified dementia, unspecified severity, without behavioral disturbance, psychotic disturbance, mood disturbance, and anxiety; J44.9 Chronic obstructive pulmonary disease, unspecified; I34.0 Nonrheumatic mitral (valve) insufficiency; I36.1 Nonrheumatic tricuspid (valve) insufficiency; I16.0 Hypertensive urgency; D64.9 Anemia, unspecified; I71.4 Abdominal aortic aneurysm, without rupture; I35.8 Other nonrheumatic aortic valve disorders; I27.20 Pulmonary hypertension, unspecified; R74.8 Abnormal levels of other serum enzymes; M81.0 Age-related osteoporosis without current pathological fracture
CPT/HCPCS: 36415; 51702; 71045; 76705; 80048; 80053; 80061; 80307; 80329; 81001; 81003; 82607; 82728; 82746; 82977; 83036; 83540; 83550; 83605; 83735; 83880; 84100; 84443; 84484; 84550; 85025; 86140; 87081; 87086; 93005; 93306; 93925; 94664; 96361; 96372; 96374; 99285